=== PATIENT | male | born 1950 | race Caucasian/White ===

== ENCOUNTER → 2016-08-03 | Outpatient (CLI) | payer OTHER ==
[~2016-08-03] MED LIST: ALBU1AER9 INH; ATOR-24 PO; CIPR-255 PO; FENO48TA9 PO; FESO8TAB PO; HYDR12.55 PO; LOSA50TA54 PO; MOME100A INH; NITR100C PO; ONDA4TAB46 PO; OXYC-57 PO; PANT40TA PO; PHEN-775 PO; SIMV40TA2 PO; URC10 PO
--- NOTE | 2016-08-03 12:18 | DIAGNOSTIC IMAGING REPORT ---
LEFT UPPER EXTREMITY ULTRASOUND CLINICAL HISTORY: Left arm pain. COMPARISON STUDY: Left elbow MRI April 27, 2015. TECHNIQUE: Sonography of the left upper arm was performed as well as comparison sonography of the right upper arm. FINDINGS: There is an asymmetric appearance of the biceps. Specifically, there is a heterogeneous mass-like appearance of the left biceps tendon with suspected retraction. The findings suggest a left biceps tear with retraction. The degree of retraction is difficult to assess by sonography. IMPRESSION: Sonographic findings suggestive of a left biceps tendon tear with retraction. Electronically signed by: Christian Sparrow M.D. 08/03/2016 12:17 PM Dictated Date/Time: 08/03/2016 12:15 PM
== END | disposition home or self-care (01) ==
LOC: C.ULTR 11:44
PROVIDERS: ATTEND Nurse Practitioner Adult Health
DX: M79.602 Pain in left arm (principal)

== ENCOUNTER → 2016-08-03 | Outpatient (CLI) | payer OTHER ==
[2016-08-03 10:29] LABS: ALT/SGPT 26 U/L (12-78); AST/SGOT 19 U/L (15-37); BLOOD UREA NITROGEN 19 mg/dl (7-18); BUN/CREATININE RATIO 14.8 (10-20); CALCIUM 8.9 mg/dl (8.5-10.1); CARBON DIOXIDE 26 mmol/L (21-32); CHLORIDE 107 mmol/L (98-107); GLUCOSE 95 mg/dl (70-99); POTASSIUM 4.5 mmol/L (3.5-5.1); SODIUM 140 mmol/L (136-145)
[2016-08-03 10:34] LABS: ALB/GLOB RATIO 1.3 (0.9-2); ALKALINE PHOSPHATASE 61 U/L (45-117)
--- NOTE | 2016-08-03 13:25 | DIAGNOSTIC IMAGING REPORT ---
WHOLE BODY BONE SCAN HISTORY: Prostate carcinoma C61 RADIOTRACER: 27.1 mCi Tc-99m MDP STUDY/IMAGES: Planar anterior and posterior whole body imaging was performed 3 hours following the intravenous administration of radiotracer. COMPARISON: None. FINDINGS: Increased activity is symphysis pubis, knees bilaterally, sternoclavicular joints, as well as acromioclavicular joints. Slight increase in activity lateral margins of the T11 level of the thoracic spine as well as T2. Given the symmetry present, this is most likely consistent with that of degenerative activity of rather a metastatic process. IMPRESSION: Scattered degenerative activity throughout the axial and appendicular skeleton. No evidence for bony metastatic disease Electronically signed by: Jesus Ramirez M.D. 08/03/2016 1:24 PM Dictated Date/Time: 08/03/2016 1:22 PM
== END | disposition home or self-care (01) ==
LOC: C.NUCL 09:23
PROVIDERS: ATTEND Urology
DX: C61 Malignant neoplasm of prostate (principal); M79.602 Pain in left arm

== ENCOUNTER → 2016-08-14 | Outpatient (CLI) | payer OTHER | END | disposition home or self-care (01) | LOC: C.RDSM 13:39 | PROVIDERS: ATTEND Physical Medicine & Rehabilitation Sports Medicine | DX: M25.512 Pain in left shoulder (principal) ==

== ENCOUNTER → 2016-08-16 | Outpatient (CLI) | payer OTHER ==
[~2016-08-16] MED LIST changes: +OPTIRAY 320 IV PRN
--- NOTE | 2016-08-16 11:24 | DIAGNOSTIC IMAGING REPORT ---
ABDOMEN AND PELVIS CT EXAMINATION PRE AND POST INTRAVENOUS CONTRAST CT DOSE: 1080.34 mGy.cm HISTORY: Prostate carcinoma C61 Adenocarcinoma of [id number] Nephrolithiasisno latex shaan TECHNIQUE: Multiaxial CT images of the abdomen and pelvis were performed pre and post intravenous contrast enhancement. COMPARISON STUDY: 03/03/2014 FINDINGS: Lung bases are clear. Liver is unremarkable throughout. Gallbladder is negative for distention. Pancreas is uniform. 2 mm nonobstructing calcification upper pole left kidney. Kidneys enhance uniformly. No evidence for a space-occupying lesion. Bowel pattern is nonobstructive. Mild chronic sigmoid diverticulosis. No evidence for acute diverticulitis. No significant abdominal pelvic or inguinal adenopathy. Osseous structures show scattered degenerative change IMPRESSION: No significant abnormality identified within the abdomen or pelvis. Electronically signed by: Jesus Ramirez M.D. 08/16/2016 11:22 AM Dictated Date/Time: 08/16/2016 11:16 AM
== END | disposition home or self-care (01) ==
LOC: C.CTS 10:50
PROVIDERS: ATTEND Urology
DX: C61 Malignant neoplasm of prostate (principal); N20.0 Calculus of kidney

== ENCOUNTER 2016-09-14 09:52 | Day surgery (SDC) | payer OTHER ==
--- NOTE | 2016-08-30 13:12 | PAT Medication Instructions ---
Service Date Aug 30, 2016. Current Home Medication List Albuterol Sulfate (Proair Hfa), 2 PUFFS INH Q4H PRN Atorvastatin (Lipitor), 40 MG PO QPM Fenofibrate (Tricor), 48 MG PO QPM Fesoterodine Fumarate (Toviaz), 1 TAB PO QAM Hydrochlorothiazide (Hydrochlorothiazide), 1 TAB PO QPM Losartan Potassium (Cozaar), 50 MG PO QPM Mometasone Furoate-Formoterol (Dulera 100/5 Mcg), 1 AER INH DIRECTED PRN for PRN Ondansetron Hcl (Zofran), 4-8 MG PO PRN PRN for Nausea Oxycodone/Acetaminophen 5MG/325MG (Percocet 5MG/325MG), 1-2 TABLETS PO Q4H PRN for N Pantoprazole (Protonix), 40 MG PO QAM Potassium Citrate (Potassium Citrate), 10 MEQ PO QAM Medication Instructions For Your Scheduled Surgery - Hold the following medications the morning of surgery: Fesoterodine Fumarate (Toviaz), 1 TAB PO QAM Potassium Citrate (Potassium Citrate), 10 MEQ PO QAM - Take the following medications the morning of surgery with a sip of water OTHERWISE NOTHING TO EAT OR DRINK AFTER MIDNIGHT: Albuterol Sulfate (Proair Hfa), 2 PUFFS INH Q4H PRN (use if needed; BRING TO HOSPITAL) Oxycodone/Acetaminophen 5MG/325MG (Percocet 5MG/325MG), 1-2 TABLETS PO Q4H PRN ( use if needed up to 4 hours prior to surgery) Mometasone Furoate-Formoterol (Dulera 100/5 Mcg), 1 AER INH DIRECTED PRN for PRN Ondansetron Hcl (Zofran), 4-8 MG PO PRN Pantoprazole (Protonix), 40 MG PO QAM - Take the following medications as scheduled the night before surgery: Albuterol Sulfate (Proair Hfa), 2 PUFFS INH Q4H PRN Hydrochlorothiazide (Hydrochlorothiazide), 1 TAB PO QPM Atorvastatin (Lipitor), 40 MG PO QPM Oxycodone/Acetaminophen 5MG/325MG (Percocet 5MG/325MG), 1-2 TABLETS PO Q4H PRN Mometasone Furoate-Formoterol (Dulera 100/5 Mcg), 1 AER INH DIRECTED PRN for PRN Ondansetron Hcl (Zofran), 4-8 MG PO PRN - Do not take the following medications the night before surgery: Fenofibrate (Tricor), 48 MG PO QPM Losartan Potassium (Cozaar), 50 MG PO QPM If you have any questions please call us at [phone] or [phone] or [phone]
--- NOTE | 2016-08-30 13:52 | DIAGNOSTIC IMAGING REPORT ---
CHEST 2 VIEWS ROUTINE CLINICAL HISTORY: Preoperative chest COMPARISON STUDY: 04/24/2016 FINDINGS: The heart is enlarged. There is basilar interstitial thickening. There is no lobar consolidation. No pleural effusions are visualized. There is no failure.[ A subcentimeter opacity at left lung base is felt to represent a summation IMPRESSION: Mild cardiomegaly. No acute findings. Electronically signed by: Shankar Smith M.D. 08/30/2016 1:50 PM Dictated Date/Time: 08/30/2016 1:50 PM
[2016-08-30 14:13] LABS: BASO % 0.2 %; BASO ABS # 0.01 K/uL (0-0.2); COMPLETE YES; EOS % 2.6 %; HEMATOCRIT 45.6 % (42-52); IG% 0.2 %; LYMPH % 27.5 %; MEAN CELL VOLUME 91.9 fL (80-100); MEAN CORPUSCULAR HEMOGLOBIN 31.7 pg (25-34); MEAN CORPUSCULAR HGB CONC 34.4 g/dl (32-36); MEAN PLATELET VOLUME 10.6 fL (7.4-10.4); NEUT % 60.5 %; PLATELET COUNT 148 K/uL (130-400); RED BLOOD COUNT 4.96 M/uL (4.7-6.1); WHITE BLOOD COUNT 5.09 K/uL (4.8-10.8)
[2016-08-30 14:45] LABS: URINE APPEARANCE CLEAR (CLEAR); URINE BILIRUBIN NEG (NEG); URINE COLOR YELLOW; URINE NITRITE NEG (NEG); URINE PH 5.5 (4.5-7.5); URINE SPECIFIC GRAVITY 1.022 (1.000-1.030); UROBILINOGEN NEG (NEG)
[2016-08-30 14:46] LABS: BUN/CREATININE RATIO 15.1 (10-20); CALCIUM 9.4 mg/dl (8.5-10.1); CREATININE 1.4 mg/dl (0.60-1.40); POTASSIUM 4.8 mmol/L (3.5-5.1)
[2016-08-30 14:47] LABS: MANUAL MICROSCOPIC REQUIRED? NO; REVIEW REQ? NO
[~2016-09-14] VITALS: Ht 172.7 cm; Wt 89.1 kg
[~2016-09-14 09:52] MED LIST changes: -CIPR-255 PO; +CIPROFLOXACIN / D5W 400 MG IV SCH; +LACTATED RINGER'S 1000ML 1,000 ML IV SCH; +LACTATED RINGER'S 1000ML IV SCH; -NITR100C PO; -OPTIRAY 320 IV PRN; -PHEN-775 PO; -SIMV40TA2 PO
[2016-09-14 10:11] VITALS: BP 159/87; PULSE 89; TEMP 36.6; O2SAT 96; Ht 172.7 cm; Wt 89.1 kg
--- NOTE | 2016-09-14 10:46 | History & Physical Bridge Note ---
H&P Re-Evaluation Bridge Note: I have examined the patient, reviewed the History & Physical and in the interval since the performance of the History & Physical I have noted the following changes of clinical significance: No changes noted
[2016-09-14] MEDS ORDERED: ONDANSETRON INJ 2 MG/ML 2 ML VIAL ONE (13:14)
[2016-09-14] MEDS ORDERED: FENTANYL CITRATE INJ 50 MCG/1 ML 2 ML VIAL ONE (13:14)
[2016-09-14] MEDS ORDERED: LIDOCAINE HCL 2% 2 ML VIAL (20MG/ML) ONE (13:14)
[2016-09-14] MEDS ORDERED: MIDAZOLAM HCL 1 MG/ML 2ML VIAL ONE (13:14)
[2016-09-14] MEDS ORDERED: DEXAMETHASONE SOD INJ 4 MG/ML VIAL ONE (13:14)
[2016-09-14] MEDS ORDERED: PROPOFOL IV EMULSION 10 MG/ML 20 ML VIAL IV ONE (13:14)
[2016-09-14] MEDS ORDERED: BELLADONNA/OPIUM SUPP 60 MG SUPP PR ONE ×2 (13:43→14:01)
[2016-09-14] MEDS ORDERED: PHEN-775 PO (13:43)
[2016-09-14] MEDS ORDERED: CIPR-255 PO (13:43)
--- NOTE | 2016-09-14 13:50 | Discharge Instructions ---
Discharge Instructions Date of Service Sep 14, 2016. Admission Reason for Admission: Bladder Neck Contracture Discharge Discharge Diagnosis / Problem: Bladder neck contracture s/p transurethral incision Discharge Goals Goal(s): Improve function, Therapeutic intervention Activity Recommendations Activity Limitations: per Instructions/Follow-up section Lifting Limitations: no more than 25 pounds, gradually increase as tolerated Exercise/Sports Limitations: rest today, gradually increase as tolerated May Resume Sexual Activity: when tolerated Shower/Bathe: tomorrow Driving or Machine Use: resume 1 day after discharge . Instructions / Follow-Up Instructions / Follow-Up In office as scheduled for milian removal and postoperative visit Discharge Diet Recommended Diet: Regular Diet (good fluid intake) Procedures Procedures Performed: Transurethral Incision Bladder Neck Contracture Pending Studies Studies pending at discharge: no Medical Emergencies . Who to Call and When: Medical Emergencies: If at any time you feel your situation is an emergency, please call 911 immediately. . Non-Emergent Contact Non-Emergency issues call your: Urologist Call Non-Emergent contact if: you have a fever, temperature is above 101, your pain is not controlled, your pain is worsening, your pain is unusual for you, your pain is concerning you . . "Provider Documentation" section prepared by Jasen Fuller. VTE Core Measure Inpt VTE Proph given/why not?: SCD's
--- NOTE | 2016-09-14 13:51 | [facility] Post Operative Brief Note ---
Immediate Operative Summary Operative Date Sep 14, 2016. Pre-Operative Diagnosis Bladder neck contracture. Post-Operative Diagnosis Same as preop. Procedure(s) Performed Transurethral Incision Bladder Neck Contracture Surgeon Dr. Jasen Fuller [employer] [facility] Specialist Surgeon(s) None Estimated Blood Loss 0 ml Findings Open BNC after completion of case Specimens None. Drains 20 fr silicone milian 10 cc HG2O Anesthesia GALMA Complication(s) None Disposition Recovery Room / PACU
[2016-09-14] MEDS ORDERED: OXYCODONE/ACETAMINOPHEN 5-325 TAB PO PRN (14:00)
[2016-09-14] MEDS ORDERED: PHENAZOPYRIDINE HCL 100 MG TAB PO PRN (14:00)
--- NOTE | 2016-09-14 14:18 | OPERATIVE REPORT ---
DATE OF OPERATION: 09/14/2016 PREOPERATIVE DIAGNOSIS: History of prostate cancer status post radical prostatectomy and salvage XRT with bladder neck contracture. POSTOPERATIVE DIAGNOSIS: Same. PROCEDURE: Transurethral incision of bladder neck contracture. SURGEON: Dr. Jasen Fuller. ROLL FORMING MACHINE OPERATOR: None. ANESTHESIA: General anesthesia with laryngeal mask. COMPLICATIONS: None. ESTIMATED BLOOD LOSS: Minimal. DRAINS LEFT IN PLACE: Include a 20-Albanian silicone Ramachandran catheter to gravity drainage with 10 mL of sterile water in the balloon. SPECIMENS SENT TO PATHOLOGY: None. FINDINGS: Open bladder neck contracture after completion of case. BRIEF HISTORY: Mr. Powell is a pleasant 66-year-old male with a history of prostate cancer status post robotic prostatectomy and salvage XRT for persistent PSA with good PSA response at this time. His voiding continues to remain an issue however with a dribbling stream, dripping and some incontinence. Office cystoscopy has demonstrated an impassable bladder neck contracture. After discussion of risks and benefits of various forms of intervention, the patient decided upon a transurethral incision of his bladder neck contracture to attempt to assist with his voiding. Risks and benefits of intervention including worsening of his incontinence have been discussed. Please see H\T\P for further details. Intravenous ciprofloxacin provided for antibiotic coverage and SCDs used for DVT prophylaxis. PROCEDURE: The patient was properly identified and brought to the operative suite. After identification and appropriate consent on the chart, general anesthesia with laryngeal mask was initiated and the patient was prepped and draped in standard fashion for this procedure. traffic sign supervisor-out procedure was followed. 24 Albanian resectoscope was passed into the proximal urethra under direct visualization with a visual obturator in place. At the bladder neck an impassable bladder neck contracture consistent with the patient's office cystoscopy findings were appreciated. Using a Gee knife relaxing incisions were made at the 5 and 7 o'clock position. Seeing the patient's history of prostatectomy and radiation a wide incision and resection was not made. It was opened sufficiently to allow for passage of the resectoscope. Bladder was surveyed in its entirety demonstrating no intravesical lesions, papillary masses, or calculi. Ureteral orifices were noted to be in their normal anatomic location and effluxing clear, yellow urine. The prostate was surgically absent as expected. The bladder was partially distended and resectoscope was removed. A 20-Albanian silicone catheter was placed with no resistance into the bladder and 10 mL of sterile water were placed with drainage of clear irrigant. The catheter was placed to gravity drainage and belladonna and opium suppository was provided for additional postoperative analgesia. Anesthesia was reversed. The patient was transferred to recovery room in stable condition. FOLLOW-UP CARE: The patient will be discharged home with Ramachandran catheter in place. Outpatient trial of void tomorrow, prescription for ciprofloxacin and Pyridium were provided. The patient reports he has sufficient pain medication at home should he require it. The patient is instructed to contact our service should he note any fevers, chills, nausea, vomiting or other significant difficulties in the postoperative period. I attest to the content of the Intraoperative Record and any orders documented therein. Any exceptio ns are noted below.
[2016-09-14] MEDS ORDERED: FENTANYL CITRATE INJ 50 MCG/1 ML 2 ML VIAL IV PRN (14:45)
[2016-09-14] MEDS ORDERED: EpHEDrine SULFATE INJ 50 MG/ML AMP IV PRN (14:45)
[2016-09-14] MEDS ORDERED: ATROPINE SULFATE 0.1 MG/ML 5ML SYR IV PRN (14:45)
[2016-09-14] MEDS ORDERED: ONDANSETRON INJ 2 MG/ML 2 ML VIAL IV PRN (14:45)
[2016-09-14 14:55] VITALS: BP 135/77; PULSE 64; TEMP 36.7; O2SAT 95
[2016-09-14 15:25] VITALS: BP 140/79; PULSE 61; O2SAT 96
--- NOTE | 2016-09-14 15:36 | Anesthesiology Progress Note ---
Anesthesia Post Op Note Date & Time Sep 14, 2016 at 15:35 Vital Signs Pain Intensity: 0 Vital Signs Past 12 Hours Date Time Temp Pulse Resp B/P Pulse Ox O2 Delivery O2 Flow Rate FiO2 09/14/16 14:39 36.6 54 19 144/78 94 Room Air 09/14/16 14:34 56 16 09/14/16 14:34 56 16 92 09/14/16 14:30 143/77 09/14/16 14:29 53 16 09/14/16 14:29 58 16 92 09/14/16 14:25 133/87 09/14/16 14:24 55 16 09/14/16 14:24 54 16 95 09/14/16 14:20 136/84 09/14/16 14:19 53 16 99 09/14/16 14:19 54 16 09/14/16 14:15 136/80 09/14/16 14:14 60 26 98 09/14/16 14:14 61 26 09/14/16 14:10 125/76 09/14/16 14:09 65 14 100 09/14/16 14:09 64 14 09/14/16 14:05 108/67 09/14/16 14:04 57 19 09/14/16 14:04 58 19 99 09/14/16 14:00 104/70 09/14/16 13:59 63 18 09/14/16 13:59 66 18 98 09/14/16 13:55 110/69 09/14/16 13:54 68 21 113/73 98 09/14/16 13:54 36.1 65 16 113/73 98 Mask 10 09/14/16 13:54 66 21 09/14/16 10:11 36.6 89 18 159/87 96 Room Air Notes Mental Status: alert / awake / arousable, participated in evaluation Pt Amnestic to Procedure: Yes Nausea / Vomiting: adequately controlled Pain: adequately controlled Airway Patency, RR, SpO2: stable & adequate BP & HR: stable & adequate Hydration State: stable & adequate Anesthetic Complications: no major complications apparent
[2016-09-14 15:55] VITALS: BP 140/79; PULSE 56; TEMP 36.7; O2SAT 96
== END 2016-09-14 16:15 | disposition home or self-care (01) ==
LOC: C.ACU 09:52
PROVIDERS: ATTEND Urology
DX: N32.0 Bladder-neck obstruction (principal); Z85.46 Personal history of malignant neoplasm of prostate; Z90.79 Acquired absence of other genital organ(s); Z79.899 Other long term (current) drug therapy

== ENCOUNTER → 2016-10-04 | Outpatient (CLI) | payer OTHER ==
[~2016-10-04] MED LIST changes: +CIPR-255 PO; -CIPROFLOXACIN / D5W 400 MG IV SCH; -LACTATED RINGER'S 1000ML 1,000 ML IV SCH; -LACTATED RINGER'S 1000ML IV SCH; +NITR100C2 PO
[2016-10-04 16:43] LABS: BASO % 0.4 %; BASO ABS # 0.02 K/uL (0-0.2); COMPLETE YES; EOS % 3.1 %; HEMATOCRIT 44.7 % (42-52); IG% 0.2 %; LYMPH % 27.9 %; LYMPH ABS # 1.55 K/uL (1.2-3.4); MEAN CELL VOLUME 93.1 fL (80-100); MEAN CORPUSCULAR HEMOGLOBIN 32.3 pg (25-34); MEAN CORPUSCULAR HGB CONC 34.7 g/dl (32-36); MEAN PLATELET VOLUME 10.2 fL (7.4-10.4); MONO % 10.5 %; NEUT % 57.9 %; PLATELET COUNT 160 K/uL (130-400); WHITE BLOOD COUNT 5.55 K/uL (4.8-10.8)
[2016-10-04 17:03] LABS: ALT/SGPT 34 U/L (12-78); AST/SGOT 20 U/L (15-37); BLOOD UREA NITROGEN 19 mg/dl (7-18); BUN/CREATININE RATIO 13.8 (10-20); CALCIUM 8.8 mg/dl (8.5-10.1); CARBON DIOXIDE 30 mmol/L (21-32); CHLORIDE 108 mmol/L (98-107); GLUCOSE 72 mg/dl (70-99); POTASSIUM 4.1 mmol/L (3.5-5.1); SODIUM 142 mmol/L (136-145)
[2016-10-04 17:14] LABS: ALB/GLOB RATIO 1.2 (0.9-2); ALKALINE PHOSPHATASE 64 U/L (45-117); CHOLESTEROL 155 mg/dl (0-200); CHOLESTEROL/HDL RATIO 3.2; HDL CHOLESTEROL 49 mg/dl; LDL CHOLESTEROL CALCULATED 86 mg/dl; TRIGLYCERIDES 101 mg/dl (0-150); VERY LOW DENSITY LIPOPROT CALC 20 mg/dl
== END | disposition home or self-care (01) ==
LOC: C.LAB 15:11
PROVIDERS: ATTEND Urology
DX: K30 Functional dyspepsia (principal); N39.3 Stress incontinence (female) (male); I10 Essential (primary) hypertension; E78.5 Hyperlipidemia, unspecified

== ENCOUNTER 2016-10-12 06:47 | Day surgery (SDC) | payer OTHER ==
[2016-10-09 16:02] VITALS: BMI 29.0
[~2016-10-12] VITALS: Ht 172.7 cm; Wt 87.3 kg
[~2016-10-12 06:47] MED LIST changes: -CIPR-255 PO; +CIPROFLOXACIN / D5W 400 MG IV SCH; +LACTATED RINGER'S 1000ML 1,000 ML IV SCH; -NITR100C2 PO
[2016-10-12 07:00] VITALS: PULSE 60; TEMP 36.5; O2SAT 95; Ht 172.7 cm; Wt 87.3 kg
[2016-10-12] MEDS ORDERED: FENTANYL CITRATE INJ 50 MCG/1 ML 2 ML VIAL ONE (08:19)
[2016-10-12] MEDS ORDERED: PROPOFOL IV EMULSION 10 MG/ML 20 ML VIAL IV ONE (08:19)
[2016-10-12] MEDS ORDERED: LIDOCAINE HCL 2% 2 ML VIAL (20MG/ML) ONE (08:19)
[2016-10-12] MEDS ORDERED: PHENYLEPHRINE 100MCG/ML 5ML SYR ONE (08:41)
[2016-10-12] MEDS ORDERED: ONDANSETRON INJ 2 MG/ML 2 ML VIAL ONE (08:41)
[2016-10-12] MEDS ORDERED: LABETALOL HCL IV 5 MG/ML 20ML IV PRN (09:00)
[2016-10-12] MEDS ORDERED: MEPERIDINE HCL 25 MG/ML CARP IV PRN (09:00)
[2016-10-12] MEDS ORDERED: FENTANYL CITRATE INJ 50 MCG/1 ML 2 ML VIAL IV PRN (09:00)
[2016-10-12] MEDS ORDERED: ONDANSETRON INJ 2 MG/ML 2 ML VIAL IV PRN (09:00)
[2016-10-12] MEDS ORDERED: EpHEDrine SULFATE INJ 50 MG/ML AMP IV PRN (09:00)
[2016-10-12] MEDS ORDERED: ATROPINE SULFATE 0.1 MG/ML 5ML SYR IV PRN (09:00)
[2016-10-12] MEDS ORDERED: HYDROmorphone INJ 1 MG/ML SYR IV PRN (09:00)
[2016-10-12] MEDS ORDERED: NITR100C2 PO (09:11)
--- NOTE | 2016-10-12 09:13 | Discharge Instructions ---
Discharge Instructions Date of Service October 12, 2016. Admission Reason for Admission: Stress Urinary Incontinence Discharge Discharge Diagnosis / Problem: AMY s/p Coaptite injection Discharge Goals Goal(s): Improve function, Improve disease control, Therapeutic intervention Activity Recommendations Activity Limitations: as noted below Lifting Limitations: no more than 25 pounds, gradually increase as tolerated Exercise/Sports Limitations: rest today, gradually increase as tolerated May Resume Sexual Activity: when tolerated Shower/Bathe: no limitations Driving or Machine Use: resume 1 day after discharge . Instructions / Follow-Up Instructions / Follow-Up As scheduled in office Discharge Diet Recommended Diet: Regular Diet (good fluid intake) Procedures Procedures Performed: Cystoscopy, Injection of Uretheral Bulking Agent - Coaptite Pending Studies Studies pending at discharge: no Laboratory Results Lipid Panel Test 10/04/16 15:19 Range/Units Triglycerides Level 101 0-150 mg/dl Cholesterol Level 155 0-200 mg/dl HDL Cholesterol 49 mg/dl Cholesterol/HDL Ratio 3.2 LDL Cholesterol, Calculated 86 mg/dl Medical Emergencies . Who to Call and When: Medical Emergencies: If at any time you feel your situation is an emergency, please call 911 immediately. . Non-Emergent Contact Non-Emergency issues call your: Urologist Call Non-Emergent contact if: you have a fever, temperature is above 101, your pain is not controlled, your pain is worsening, your pain is unusual for you, your pain is concerning you, you have any medication questions . . "Provider Documentation" section prepared by Jasen Fuller. . VTE Core Measure Inpt VTE Proph given/why not?: SCD's
--- NOTE | 2016-10-12 09:14 | [facility] Post Operative Brief Note ---
Immediate Operative Summary Operative Date October 12, 2016. Pre-Operative Diagnosis Urinary Stress Incontinence Post-Operative Diagnosis Urinary Stress Incontinence Procedure(s) Performed Cystoscopy, Injection of Uretheral Bulking Agent - Coaptite Surgeon Dr. Jasen Fuller Associate Web Developer Surgeon(s) none Estimated Blood Loss 0 cc Findings 3 cc of Coaptite used at 4, 8 and 12 oclock positions Specimens none per surgeon Drains NA Anesthesia GALMA Complication(s) None Disposition Recovery Room / PACU
[2016-10-12] MEDS ORDERED: OXYCODONE/ACETAMINOPHEN 5-325 TAB PO PRN (09:15)
--- NOTE | 2016-10-12 09:40 | OPERATIVE REPORT ---
DATE OF OPERATION: 10/12/2016 PREOPERATIVE DIAGNOSIS: Urinary incontinence. POSTOPERATIVE DIAGNOSIS: Same. PROCEDURE: Cystoscopy and injection with urethral bulking agent. SURGEON: Dr. Jasen Fuller. CRUSHER DRY GROUND MICA: None. ANESTHESIA: General anesthesia with laryngeal mask. COMPLICATIONS: None. ESTIMATED BLOOD LOSS: Minimal. DRAINS LEFT IN PLACE: None. SPECIMENS SENT TO PATHOLOGY: None. FINDINGS: 3 mL of Coaptite injected at the level of the sphincter with good coaptation at the 12, 4, and 8 o'clock positions, 1 mL for each bleb. BRIEF HISTORY: Mr. Powell is a 66-year-old male well known to myself with a history of prostate cancer, status post prostatectomy and disease recurrence, for which he has undergone salvage external beam radiation therapy and received a year of androgen deprivation. He complained of persistent voiding issues postoperatively and a cystoscopy demonstrated bladder neck contracture. The patient was brought in for an incision of his bladder neck contracture which unfortunately resulted in worsening of his urinary incontinence. The patient complains of a persistent drip with activity despite the fact that the urethra is open, suggesting some element of sphincteric incompetence. He is here today for Coaptite injection to improve his symptoms. Please see H\T\P for further details. Intravenous ciprofloxacin provided for antibiotic coverage and SCDs used for DVT prophylaxis. PROCEDURE IN DETAIL: The patient was properly identified and brought to the operative suite after identification of appropriate consent on the chart, general anesthesia with laryngeal mask was initiated and the patient was prepped and draped in standard fashion for this procedure. Full timeout procedure was followed. Using a visual obturator, the injection scope was advanced into the bladder under direct visualization and bladder was noted to be free of intravesical lesions, papillary mass or calculi. Ureteral orifices were appreciated and noted to be effluxing clear yellow urine. Bladder neck contracture was open, although it has not been opened excessively wide. At the level of the sphincter where good coaptation was seen at the level in the office, injection of Coaptite at 3 different locations was performed at the 4, 8, and 12 o'clock positions. One full mL was inserted per bleb at the posterior locations. At the 12 o'clock position, a bleb was begun and had a small tear. The latter half of the Coaptite was able to be salvaged with a second injection point, however. After this was complete, the injection scope was removed. A 12-Rwandan catheter was used to drain the bladder delicately after allowing time for the Coaptite to set. Anesthesia was then reversed and the patient was transferred to recovery room in stable condition. FOLLOWUP CARE: The patient will be discharged home with a short course of nitrofurantoin. Outpatient appointment is confirmed. The patient is instructed to contact us should he note any fevers, chills, nausea, vomiting or any other significant difficulties in the postoperative period. I attest to the content of the Intraoperative Record and any orders documented therein. Any exceptions are noted below. FRANKLIND
--- NOTE | 2016-10-12 09:53 | Anesthesiology Progress Note ---
Anesthesia Post Op Note Date & Time October 12, 2016 at 09:53 Vital Signs Pain Intensity: 3 Vital Signs Past 12 Hours Date Time Temp Pulse Resp B/P Pulse Ox O2 Delivery O2 Flow Rate FiO2 10/12/16 09:50 36.1 56 12 132/79 95 Room Air 10/12/16 09:40 56 12 120/84 95 Room Air 10/12/16 09:30 56 12 145/79 98 Diffusion Mask 8 10/12/16 09:20 56 12 137/82 98 Diffusion Mask 8 10/12/16 09:11 36 69 12 144/80 96 Diffusion Mask 8 10/12/16 07:00 36.5 60 16 95 Room Air Notes Mental Status: alert / awake / arousable, participated in evaluation Pt Amnestic to Procedure: Yes Nausea / Vomiting: adequately controlled Pain: adequately controlled Airway Patency, RR, SpO2: stable & adequate BP & HR: stable & adequate Hydration State: stable & adequate Anesthetic Complications: no major complications apparent
[2016-10-12 09:55] VITALS: BP 136/76; PULSE 58; TEMP 36.4; O2SAT 95
[2016-10-12 10:25] VITALS: BP 131/78; PULSE 67; TEMP 36.5; O2SAT 97
[2016-10-12 10:50] VITALS: BP 135/76; PULSE 60; TEMP 36.4; O2SAT 97
== END 2016-10-12 11:00 | disposition home or self-care (01) ==
LOC: C.ACU 06:47
PROVIDERS: ATTEND Urology
DX: R32 Unspecified urinary incontinence (principal); N52.9 Male erectile dysfunction, unspecified; N32.0 Bladder-neck obstruction; E78.5 Hyperlipidemia, unspecified; Z85.46 Personal history of malignant neoplasm of prostate; Z87.891 Personal history of nicotine dependence; Z90.79 Acquired absence of other genital organ(s); Z82.49 Family history of ischemic heart disease and other diseases of the circulatory system

== ENCOUNTER → 2017-04-11 | Outpatient (CLI) | payer OTHER ==
[~2017-04-11] MED LIST changes: -CIPROFLOXACIN / D5W 400 MG IV SCH; -LACTATED RINGER'S 1000ML 1,000 ML IV SCH
[2017-04-11 13:20] VITALS: BP 118/71; PULSE 86; TEMP 36.5; O2SAT 95
--- NOTE | 2017-04-11 16:08 | Radiation Oncology Follow-Up ---
Radiation Oncology Follow-Up Date of Visit Apr 11, 2017. Reason For Visit Annual follow-up Radiation Completion Date FINISHED 08-19-2013 Diagnosis (1) Carcinoma of prostate Status: Acute Onset Date: 09/15/2012 Histology Subtype: adenocarcinoma Stage: lll Permanent Comment: A rising PSA, pretreatment PSA 7.2 status post biopsies. Biopsy revealing adenocarcinoma Sal grade 3+3 and 3+4 Status post robotic-assisted radical prostatectomy 11/23/2011 pathologic stage [id number] stage III Sal grade 3+3 status post completion of radiation therapy salvage treatment 08/19/2013 received 7000 cGy Last Edited By: Elly Smith on Apr 06, 2015 15:49 Interim History He has had continued problems with incontinence. He was referred by Dr. Fuller to [facility] and underwent surgery. An artificial urinary sphincter device was implanted on 03/16/2017. He has steadily recuperated from the surgery. He denies any discomfort. The device has not yet been activated. This will be happening in the near future. Prior to the implanted device he was tried on Botox injections. He unfortunately has had a rise in his PSA. Last PSA was obtained on 04/05/2017. In that was 13.7. He did see Dr. Fuller today. He is going to schedule him for staging studies. He is going to have a CAT scan of the abdomen and pelvis as well as a bone scan. He has discussed with him starting hormone suppression. He had previously received hormone suppression while undergoing the radiation therapy. Today he gave an AUA score of 26. Completed and expanded prostate cancer index composite for clinical practice and gave a score of 12 of 12 and urinary incontinence symptoms. He gave a score of 6 of 12 and urinary irritation symptoms. He gave a score of 0 of 12 bowel symptoms. He gave a score of 6 of 12 in sexual symptoms. He gave a score of 0 of 12 and hormonal vitality symptoms. His total was 24 of 60. Allergies Coded Allergies: No Known Allergies (Unverified , 10/12/16) Home Medications Scheduled Atorvastatin (Lipitor), 40 MG PO QPM Fenofibrate (Tricor), 48 MG PO QPM Hydrochlorothiazide (Hydrochlorothiazide), 1 TAB PO QPM Losartan Potassium (Cozaar), 50 MG PO QPM Pantoprazole (Protonix), 40 MG PO QAM Potassium Citrate (Potassium Citrate), 10 MEQ PO QAM Scheduled PRN Albuterol Sulfate (Proair Hfa), 2 PUFFS INH Q4H PRN Mometasone Furoate-Formoterol (Dulera 100/5 Mcg), 1 AER INH DIRECTED PRN for PRN Review of Systems Gastrointestinal: Symptoms: WNL GI Comments: occ bleeding from Hemorrhoids Oral: Symptoms: No Problems Respiratory: Symptoms: WNL Other Respiratory: " is working in dust , remodeling a bedroom " Urinary: Symptoms: Incontinence Comments: leakage , wears a pad, changes 7-8 times Skin: Symptoms: No Problems Physical Exam Vital Signs Date Time Temp Pulse Resp B/P (MAP) Pulse Ox O2 Delivery O2 Flow Rate FiO2 04/11/17 13:20 36.5 86 20 118/71 95 Fatigue: None General Appearance: no apparent distress Eyes: normal inspection, EOMI ENT: normal ENT inspection, hearing grossly normal Respiratory/Chest: lungs clear, no respiratory distress, no accessory muscle use Cardiovascular: regular rate, rhythm, no gallop, no murmur Abdomen: non tender, soft Anal / Rectum: Normal sphincter tone. Prostate is flat. No rectal masses and no rectal bleeding. Extremities: no pedal edema Neurologic/Psychiatric: no motor/sensory deficits, alert, normal mood/affect Skin: warm/dry Pain Management Side: Bilateral Patient Preferred Pain Scale: 0 - 10 Laboratory Studies Test 04/05/17 11:51 Blood Urea Nitrogen 20 mg/dl (7-18) Creatinine 1.19 mg/dl (0.60-1.40) Estimated GFR () 73.9 Estimated GFR (Non- 63.7 BUN/Creatinine Ratio 16.5 (10-20) Triglycerides Level 124 mg/dl (0-150) Cholesterol Level 185 mg/dl (0-200) HDL Cholesterol 54 mg/dl LDL Cholesterol, Calculated 106 mg/dl VLDL Cholesterol, Calculated 25 mg/dl Cholesterol/HDL Ratio 3.4 Prostate Specific Antigen 13.700 ng/ml (0.000-4.000) Assessment & Plan Plan: We'll await the studies ordered by Dr. Fuller. He has a follow-up visit with him on 05/23/2017. We discussed the hormone suppression. We reviewed that this is the first step in failure after radiation therapy. He understands that there will be options of treatments should he fail hormone suppression. The implanted device will be activated and he is hopeful that this will improve his urinary incontinence. We asked him to return to our office in 1 year. He may call if he has any questions or concerns in the interim. Total Time In Follow-Up I spent 20 minutes speaking to the patient and performing examination. I spent 15 minutes reviewing information and completing this note. Copy To Jasen Fuller MD, Urology; [place],
== END | disposition home or self-care (01) ==
LOC: C.ONC 13:04
PROVIDERS: ATTEND Physician Assistant Medical
DX: Z08 Encounter for follow-up examination after completed treatment for malignant neoplasm (principal); Z92.3 Personal history of irradiation; Z85.46 Personal history of malignant neoplasm of prostate

== ENCOUNTER → 2017-04-16 | Outpatient (CLI) | payer OTHER ==
[~2017-04-16] MED LIST changes: -FESO8TAB PO; -ONDA4TAB46 PO; +OPTIRAY 320 IV PRN; -OXYC-57 PO
[2017-04-16 13:27] LABS: BLOOD UREA NITROGEN 20 mg/dl (7-18); BUN/CREATININE RATIO 16.8 (10-20); CALCIUM 9.5 mg/dl (8.5-10.1); CARBON DIOXIDE 27 mmol/L (21-32); CHLORIDE 105 mmol/L (98-107); CREATININE 1.17 mg/dl (0.60-1.40); GLUCOSE 88 mg/dl (70-99); POTASSIUM 4.3 mmol/L (3.5-5.1); SODIUM 141 mmol/L (136-145)
--- NOTE | 2017-04-16 14:26 | DIAGNOSTIC IMAGING REPORT ---
ABDOMEN AND PELVIS CT WITH IV CONTRAST CT DOSE: 538.40 mGy.cm HISTORY: Follow-up study. 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 A dose lowering technique was utilized adhering to the principles of ALARA. COMPARISON STUDY: CT abdomen and pelvis 08/16/2016. FINDINGS: Mild dependent bibasilar atelectasis. 4 mm noncalcified pulmonary nodule of the left lower lobe as seen on image 14 of series 3. 5 mm nodule of the right lower lobe seen on image 23 of series 3. No pneumoperitoneum. Imaged inferior cardiac chambers are unremarkable. The liver, spleen, pancreas, gallbladder and adrenal glands are unremarkable. Areas of probable thinning and scarring are noted within the inferior pole left kidney. 2 nonobstructing calculi are seen on the left, largest of which measures up to 3 mm. 3 mm nonobstructing calculus involves interpolar right kidney. No ureteral calculi or hydronephrosis. Urinary bladder is collapsed. Penile prosthetic device is present with reservoir within the right lower anterior abdomen abutting the rectus musculature. Prostate appears to be surgically absent. Small fat filled left inguinal hernia. Moderate atherosclerotic plaquing of the abdominal aorta. No bulky retroperitoneal adenopathy. There is no bowel obstruction or focal bowel wall thickening. No evidence of acute appendicitis. Soft tissues are unremarkable. The bones appear mildly demineralized. No suspicious lytic or blastic lesion. Degenerative changes are seen in the spine. IMPRESSION: 1. No acute intra-abdominal or intrapelvic abnormality identified. 2. Noncalcified pulmonary nodules of the lower lobes as above measuring up to 5 mm. Follow-up guidelines provided below. 3. No adenopathy or evidence of metastatic disease. 4. Scarring of the inferior pole left kidney. Bilateral nonobstructing nephrolithiasis. Please refer to below summary of Fleischner criteria recommendations for follow-up of incidental CT nodules (Wu Solomon, Guidelines for management of small pulmonary nodules detected on CT scans: A statement from the Fleischner Society, Radiology 237: [id number].) SOLID NODULES Solitary nodule size: <6 mm * Low risk patients: no follow-up needed * high risk patients: optional CT at 12 months Solitary nodule size: 6-8 mm * Low risk patients: follow-up at 6-12 months, then consider further follow-up at 18-24 months * high risk patients: initial follow-up CT at 6-12 months and then at 18-24 months if no change Solitary nodule size: >8 mm * either low or high risk patients - consider follow-up CT at 3 months, and/or CT-PET, and/or biopsy Multiple nodules size: <6 mm * Low risk patients: no routine follow-up * high risk patients: optional CT at 12 months Multiple nodules size: 6-8 mm * Low risk patients: follow-up at 3-6 months, then consider further follow-up at 18-24 months * high risk patients: follow-up at 3-6 months, then at 18-24 months if no change Multiple nodules size: >8 mm * Low risk patients: follow-up at 3-6 months, then consider further follow-up at 18-24 months * high risk patients: follow-up at 3-6 months, then at 18-24 months if no change Note: newly detected indeterminate nodule in persons 35 years of age or older. * Low risk patients: minimal or absent history of smoking and/or other known risk factors * high risk patients: history of smoking or of other known risk factors (e.g. first degree relative with lung cancer, or exposure to asbestos, radon, uranium) * if a nodule up to 8 mm is partly solid or is ground glass further follow-up is required after 24 months to exclude possible slow growing adenocarcinoma (MIKE) SUBSOLID NODULES Solitary pure ground-glass nodule * nodule size <6 mm - no CT follow-up required * nodule size >=6 mm - follow-up CT at 6-12 months, then every 2 years until 5 years Solitary part-solid nodule * nodule size <6 mm - no CT follow-up required * nodule size >=6 mm - follow-up CT at 3-6 months. If unchanged, and solid component remains <6 mm, then annual follow-up for 5 years Multiple subsolid nodules * nodule size <6 mm - follow-up CT at 3-6 months, consider further follow-up at 2 and 4 years if stable * nodule size >=6 mm - follow-up CT at 3-6 months, subsequent management based on the most suspicious nodule(s) The above report was generated using voice recognition software. It may contain grammatical, syntax or spelling errors. Electronically signed by: Rome Hammer M.D. 04/16/2017 2:25 PM Dictated Date/Time: 04/16/2017 1:47 PM
--- NOTE | 2017-04-16 18:42 | DIAGNOSTIC IMAGING REPORT ---
BONE SCAN WHOLE BODY CLINICAL HISTORY: Adenocarcinoma of prostate. COMPARISON STUDY: Whole body bone scan August 03, [address] of the abdomen and pelvis April 16, 2017. TECHNIQUE: 26.487 mCi of technetium 99m MDP was injected IV at 1:25 PM on April 16, 2017. 3 hours following injection, whole body imaging was performed in the anterior and posterior projections. FINDINGS: Expected renal and soft tissue uptake is identified. No suspicious skeletal radiotracer uptake is identified to suggest skeletal metastatic disease. A photopenic defect from right knee arthroplasty is noted. Uptake within the shoulders, sternoclavicular joints, ankles and feet is degenerative. Uptake projecting over the scrotum represents urine leakage. IMPRESSION: No evidence of skeletal metastatic disease. Electronically signed by: Christian Sparrow M.D. 04/16/2017 6:41 PM Dictated Date/Time: 04/16/2017 6:39 PM
== END | disposition home or self-care (01) ==
LOC: C.NUCL 12:40
PROVIDERS: ATTEND Urology
DX: R10.13 Epigastric pain (principal); C61 Malignant neoplasm of prostate; N20.0 Calculus of kidney; R91.8 Other nonspecific abnormal finding of lung field

== ENCOUNTER → 2017-05-14 | Outpatient (CLI) | payer OTHER ==
[~2017-05-14] MED LIST changes: -OPTIRAY 320 IV PRN
[2017-05-14 18:21] LABS: ALT/SGPT 22 U/L (12-78); AST/SGOT 17 U/L (15-37); BLOOD UREA NITROGEN 21 mg/dl (7-18); BUN/CREATININE RATIO 15.9 (10-20); CALCIUM 8.9 mg/dl (8.5-10.1); CARBON DIOXIDE 27 mmol/L (21-32); CHLORIDE 107 mmol/L (98-107); CREATININE 1.34 mg/dl (0.60-1.40); GLUCOSE 75 mg/dl (70-99); POTASSIUM 4.2 mmol/L (3.5-5.1); SODIUM 137 mmol/L (136-145)
[2017-05-14 18:26] LABS: ALB/GLOB RATIO 0.9 (0.9-2); ALKALINE PHOSPHATASE 88 U/L (45-117)
== END | disposition home or self-care (01) ==
LOC: C.LABPBG 10:41
PROVIDERS: ATTEND Urology
DX: N20.0 Calculus of kidney (principal)

== ENCOUNTER → 2017-08-06 | Outpatient (CLI) | payer OTHER ==
[2017-08-06 18:10] LABS: BLOOD UREA NITROGEN 22 mg/dl (7-18); CREATININE 1.25 mg/dl (0.60-1.40)
== END | disposition home or self-care (01) ==
LOC: C.LABPBG 11:49
PROVIDERS: ATTEND Urology
DX: N39.41 Urge incontinence (principal)

== ENCOUNTER → 2017-08-28 | Outpatient (CLI) | payer OTHER ==
--- NOTE | 2017-08-28 12:32 | DIAGNOSTIC IMAGING REPORT ---
KUB CLINICAL HISTORY: Nephrolithiasis. FINDINGS:2 AP supine abdominal radiographs are correlated with abdominal CT dated 04/16/2017. There is a nonobstructed abdominal bowel gas pattern noting moderate colonic fecal retention. A punctate calcification projects over the left kidney. No calcifications are seen projecting over the right kidney. No calcification is seen projecting along the course of the ureters. A vascular calcification is seen in the left hemipelvis. The skeletal structures are osteopenic. Moderate lumbosacral spondylosis is identified. IMPRESSION: 1. A punctate nonobstructing calculus projects over the left kidney. 2. No right renal calculi are identified on today's examination. The renal shadows are largely obscured by overlying bowel contents. 2. No ureteral stone is seen. Electronically signed by: Kushal Donis M.D. 08/28/2017 12:30 PM Dictated Date/Time: 08/28/2017 12:28 PM
== END | disposition home or self-care (01) ==
LOC: C.RAD 11:25
PROVIDERS: ATTEND Urology
DX: N20.0 Calculus of kidney (principal); N20.1 Calculus of ureter; N32.0 Bladder-neck obstruction

== ENCOUNTER → 2017-10-23 | Outpatient (CLI) | payer OTHER ==
[2017-10-23 13:09] LABS: HEMATOCRIT 41.5 % (42-52); HEMOGLOBIN 14.1 g/dL (14.0-18.0); MEAN CORPUSCULAR HEMOGLOBIN 31.3 pg (25-34); MEAN PLATELET VOLUME 10.2 fL (7.4-10.4); PLATELET COUNT 183 K/uL (130-400); RED CELL DISTRIBUTION WIDTH CV 13.7 % (11.5-14.5); WHITE BLOOD COUNT 5.71 K/uL (4.8-10.8)
[2017-10-23 14:20] LABS: ALBUMIN 3.9 gm/dl (3.4-5.0); ALKALINE PHOSPHATASE 68 U/L (45-117); ALT/SGPT 31 U/L (12-78); AST/SGOT 21 U/L (15-37); BLOOD UREA NITROGEN 29 mg/dl (7-18); CALCIUM 9.4 mg/dl (8.5-10.1); CARBON DIOXIDE 25 mmol/L (21-32); CHOLESTEROL 169 mg/dl (0-200); CREATININE 1.43 mg/dl (0.60-1.40); GLUCOSE 91 mg/dl (70-99); LDL CHOLESTEROL CALCULATED 81 mg/dl; POTASSIUM 3.9 mmol/L (3.5-5.1); SODIUM 139 mmol/L (136-145); TOTAL PROTEIN 7.5 gm/dl (6.4-8.2)
== END | disposition home or self-care (01) ==
LOC: C.LABPBG 08:33
PROVIDERS: ATTEND Urology
DX: C61 Malignant neoplasm of prostate (principal); I10 Essential (primary) hypertension; E78.5 Hyperlipidemia, unspecified; J43.9 Emphysema, unspecified; N39.41 Urge incontinence

== ENCOUNTER → 2018-01-04 | Outpatient (CLI) | payer OTHER ==
[~2018-01-04] MED LIST changes: -ALBU1AER9 INH; +FLUT1INH INH; -MOME100A INH; +OXYC-57 PO
[2018-01-04 13:42] LABS: BLOOD UREA NITROGEN 28 mg/dl (7-18); CREATININE 1.49 mg/dl (0.60-1.40)
== END | disposition home or self-care (01) ==
LOC: C.LABPBG 08:18
PROVIDERS: ATTEND Urology
DX: N39.41 Urge incontinence (principal); N39.0 Urinary tract infection, site not specified; C61 Malignant neoplasm of prostate; N39.3 Stress incontinence (female) (male)

== ENCOUNTER 2019-09-25 12:54 | Observation (INO) ==
--- NOTE | 2019-09-25 13:06 | Emergency Department Note ---
ED Visit Note I have seen and examined this patient with Lukas Felix and generally agree with the treatment plan as discussed. .
[2019-09-25] MEDS ORDERED: MoRPHine SULFATE 4 MG/ML 1 ML CARP\\VIAL IV STA (13:23)
[2019-09-25] MEDS ORDERED: ONDANSETRON INJ 2 MG/ML 2 ML VIAL IV STA ×2 (13:23→14:33)
[2019-09-25 13:39] LABS: Basophils # (auto) 0.01 K/uL (0-0.2); Basophils % (auto) 0.1 %; Eosinophils # (auto) 0.01 K/uL (0-0.5); Eosinophils % (auto) 0.1 %; Hematocrit (blood only) 40.1 % (42-52); Immature Granulocytes # (auto) 0.02 K/uL (0.00-0.02); Immature Granulocytes % (auto) 0.2 %; Lymphocytes # (auto) 1.15 K/uL (1.2-3.4); Lymphocytes % (auto) 9.7 %; Mean Corpuscular Hemoglobin 31.7 pg (25-34); Mean Corpuscular Hgb Conc 34.9 g/dL (32-36); Mean Corpuscular Volume 90.7 fL (80-100); Mean Platelet Volume 9.8 fL (7.4-10.4); Monocytes # (auto) 0.68 K/uL (0.11-0.59); Monocytes % (auto) 5.8 %; Neutrophils # (auto) 9.95 K/uL (1.4-6.5); Neutrophils % (auto) 84.1 %; Platelet Count 186 K/uL (130-400); RDW Coefficient of Variation 13.5 % (11.5-14.5); RDW Standard Deviation 44.6 fL (36.4-46.3); Red Blood Count 4.42 M/uL (4.7-6.1); White Blood Count 11.82 K/uL (4.8-10.8)
--- NOTE | 2019-09-25 13:42 | Emergency Department Note ---
History of Present Illness General Chief complaint: Abdominal Pain Stated complaint: ABD PAIN Time Seen by Provider: 09/25/19 13:03 History of Present Illness Maximum Pain Intensity: 7 69-year-old male who presents to the emergency department for evaluation of upper abdominal pain that has been intermittent since this past Sunday (5 days ago). The patient reports the pain did feel better on Sunday and Sunday, however worsened again on Sunday. Sunday night, he had a single episode of vomiting. Patient reports that he was operating a bulldozer this morning, and had to come home because the pain hurts so bad. He did lay down on the couch, which made it feel better. The patient reports that the pain does occasionally radiate up into the chest as well. The patient reports a history of chronic back pain, but denies any known stabbing pain radiating through to the back, or into the shoulder or neck. Patient does report a prior history of surgery for hiatal hernia. He also has a history of prostate cancer, status post prostatectomy and orchiectomy. The patient denies any other abdominal surgeries, including cholecystectomy. He denies any cardiopulmonary history. Wu rodriguez does have a history of reflux, but reports that this feels different. He has not noticed any change in color or consistency of his stools. He has not noticed any blood in his urine. The patient currently rates his discomfort a 7 out of 10, that he describes as a constant pain. Home Medications Home Medications Medication Instructions Recorded Confirmed Type albuterol sulfate 90 mcg/actuation 1 puffs INH Q6H PRN 06/18/18 09/25/19 History aerosol inhaler ibuprofen 400 mg PO Q6H PRN 08/25/19 09/25/19 History atorvastatin [Lipitor] 40 mg PO QAM 09/25/19 09/25/19 History fenofibrate nanocrystallized 48 mg PO QAM 09/25/19 09/25/19 History [Tricor] lidocaine [Lidoderm] 1 patch TOP DAILY PRN 09/25/19 09/25/19 History losartan [Cozaar] 100 mg PO QAM 09/25/19 09/25/19 History oxycodone-acetaminophen [Percocet] 1 tab PO Q6H PRN 09/25/19 09/25/19 History pantoprazole [Protonix] 40 mg PO QAM 09/25/19 09/25/19 History potassium citrate [Urocit-K 10] 10 meq PO BID 09/25/19 09/25/19 History Allergies Allergy/AdvReac Type Severity Reaction Status Date / Time No Known Allergies Allergy Unknown Verified 09/25/19 13:29 Past Med/Surg History Medical History Acute blood loss anemia (Resolved) Adenocarcinoma of prostate Aneurysm artery, iliac common Arthritis Asthma Dyslipidemia GERD (gastroesophageal reflux disease) Hypertension Kidney stone (Resolved 09/15/12) Lumbar disc disease Lumbar radiculopathy Lumbar spinal stenosis Lung nodule stable October 2017; no f/u recommended. Nephrolithiasis Paroxysmal ventricular tachycardia USED TO F/U WITH SYZMANSKI-DISCHARGED 2 YRS AGO-NOW F/U PCP Prediabetes Premature ventricular contractions Prostate cancer (Resolved) Pulmonary emphysema Urge incontinence of urine Surgical History H/O lithotripsy X MULTIPLE H/O right inguinal hernia repair History of total right knee replacement Hx of umbilical hernia repair Prostatectomy (09/15/12) S/P carpal tunnel release R/L S/P left inguinal hernia repair S/P orchiopexy Family History Brother Bladder cancer Myocardial infarction Hypertension Father Myocardial infarction Coronary heart disease Hypertension Mother Hypertension Sister Thyroid cancer Other Heart disease Social History Preferred Language: Cameroonian Communication Ability: Effective Manager Hvac Required: No Beliefs That Will Affect Care: None marital status: Current Living Situation: Spouse current occupational status: retired Other Information That Helps Us Care for You: No Feels Safe at Home: Yes Safety Concerns: Feels Safe At This Time Smoking Status: Never smoker Do You Dip or Chew Tobacco: No ; Second Hand Exposure: No ; Hx Alcohol Use: No Hx Substance Use: No Physical Activity Frequency: Daily Seatbelt Use: never Sunscreen Use: No Review of Systems 10 system review was performed and was negative except for pertinent positives and negatives as indicated in history of present illness Physical Exam Vital Signs Vital Signs - 24 hr 09/25/19 12:58 09/25/19 13:36 09/25/19 13:38 Temperature 37.1 C Temperature Source Oral Pulse Rate 97 H 94 H Pulse Rate [Apical] 96 H Pulse Rate from SpO2 Sensor 94 H Pulse Rhythm [Apical] Pulse Strength [Apical] Respiratory Rate 20 20 20 Respiratory Effort / Characteristics Non-Labored Spontaneous Non-Labored Spontaneous Respiratory Depth Normal Normal Respiratory Pattern Blood Pressure 122/68 160/91 H Blood Pressure [Left Arm] 160/91 H Blood Pressure Mean 86 141 Blood Pressure Mean [Left Arm] 114 Blood Pressure Position Sitting Blood Pressure Position [Left Arm] Pulse Oximetry 97 93 94 Oxygen Delivery Method Room Air Room Air Room Air Sepsis Recent Fever Within 48 Hours No Sepsis Action Taken by Nursing No Action Required 09/25/19 13:40 09/25/19 13:50 09/25/19 14:00 Temperature Temperature Source Pulse Rate 96 H 94 H 93 H Pulse Rate [Apical] Pulse Rate from SpO2 Sensor 96 H 94 H 94 H Pulse Rhythm [Apical] Pulse Strength [Apical] Respiratory Rate 18 16 21 Respiratory Effort / Characteristics Respiratory Depth Respiratory Pattern Blood Pressure 137/81 Blood Pressure [Left Arm] Blood Pressure Mean 91 Blood Pressure Mean [Left Arm] Blood Pressure Position Blood Pressure Position [Left Arm] Pulse Oximetry 93 90 91 Oxygen Delivery Method Room Air Room Air Room Air Sepsis Recent Fever Within 48 Hours Sepsis Action Taken by Nursing 09/25/19 14:10 09/25/19 14:20 09/25/19 14:30 Temperature Temperature Source Pulse Rate 96 H 94 H 92 H Pulse Rate [Apical] Pulse Rate from SpO2 Sensor 96 H 93 H 93 H Pulse Rhythm [Apical] Pulse Strength [Apical] Respiratory Rate 29 H 18 17 Respiratory Effort / Characteristics Respiratory Depth Respiratory Pattern Blood Pressure 137/81 Blood Pressure [Left Arm] Blood Pressure Mean 95 Blood Pressure Mean [Left Arm] Blood Pressure Position Blood Pressure Position [Left Arm] Pulse Oximetry 88 L 89 L 92 Oxygen Delivery Method Room Air Room Air Room Air Sepsis Recent Fever Within 48 Hours Sepsis Action Taken by Nursing 09/25/19 14:31 09/25/19 14:40 09/25/19 14:50 Temperature Temperature Source Pulse Rate 91 H 91 H 89 Pulse Rate [Apical] 91 H Pulse Rate from SpO2 Sensor 92 H 90 89 Pulse Rhythm [Apical] Pulse Strength [Apical] Respiratory Rate 18 25 H 19 Respiratory Effort / Characteristics Respiratory Depth Respiratory Pattern Blood Pressure Blood Pressure [Left Arm] 137/81 Blood Pressure Mean Blood Pressure Mean [Left Arm] 99 Blood Pressure Position Blood Pressure Position [Left Arm] Pulse Oximetry 91 93 Oxygen Delivery Method Room Air Room Air Room Air Sepsis Recent Fever Within 48 Hours Sepsis Action Taken by Nursing 09/25/19 15:06 09/25/19 15:10 09/25/19 15:20 Temperature Temperature Source Pulse Rate 89 88 85 Pulse Rate [Apical] Pulse Rate from SpO2 Sensor 89 85 Pulse Rhythm [Apical] Pulse Strength [Apical] Respiratory Rate 21 20 16 Respiratory Effort / Characteristics Respiratory Depth Respiratory Pattern Blood Pressure Blood Pressure [Left Arm] Blood Pressure Mean Blood Pressure Mean [Left Arm] Blood Pressure Position Blood Pressure Position [Left Arm] Pulse Oximetry 94 Oxygen Delivery Method Room Air Room Air Room Air Sepsis Recent Fever Within 48 Hours Sepsis Action Taken by Nursing 09/25/19 15:30 09/25/19 15:40 09/25/19 15:50 Temperature Temperature Source Pulse Rate 83 85 85 Pulse Rate [Apical] Pulse Rate from SpO2 Sensor 84 86 86 Pulse Rhythm [Apical] Pulse Strength [Apical] Respiratory Rate 25 H 19 17 Respiratory Effort / Characteristics Respiratory Depth Respiratory Pattern Blood Pressure 132/72 Blood Pressure [Left Arm] Blood Pressure Mean 96 Blood Pressure Mean [Left Arm] Blood Pressure Position Blood Pressure Position [Left Arm] Pulse Oximetry 94 94 94 Oxygen Delivery Method Room Air Room Air Room Air Sepsis Recent Fever Within 48 Hours Sepsis Action Taken by Nursing 09/25/19 16:00 09/25/19 16:01 09/25/19 16:11 Temperature Temperature Source Pulse Rate 85 87 Pulse Rate [Apical] Pulse Rate from SpO2 Sensor 84 87 Pulse Rhythm [Apical] Pulse Strength [Apical] Respiratory Rate 25 H 16 Respiratory Effort / Characteristics Respiratory Depth Respiratory Pattern Blood Pressure 140/93 Blood Pressure [Left Arm] Blood Pressure Mean 111 Blood Pressure Mean [Left Arm] Blood Pressure Position Blood Pressure Position [Left Arm] Pulse Oximetry 94 95 Oxygen Delivery Method Room Air Room Air Room Air Sepsis Recent Fever Within 48 Hours Sepsis Action Taken by Nursing 09/25/19 16:27 Temperature 36.8 C Temperature Source Temporal Artery Scan Pulse Rate Pulse Rate [Apical] 87 Pulse Rate from SpO2 Sensor Pulse Rhythm [Apical] Regular Pulse Strength [Apical] Normal Respiratory Rate 20 Respiratory Effort / Characteristics Non-Labored Spontaneous Respiratory Depth Normal Respiratory Pattern Regular Blood Pressure Blood Pressure [Left Arm] 126/78 Blood Pressure Mean Blood Pressure Mean [Left Arm] 94 Blood Pressure Position Blood Pressure Position [Left Arm] Semi-fowlers Pulse Oximetry 93 Oxygen Delivery Method Room Air Sepsis Recent Fever Within 48 Hours Sepsis Action Taken by Nursing CONSTITUTIONAL: Healthy and well nourished. Patient appears in moderate discomfort. HEENT: Normocephalic, atraumatic. Pupils equal, round and reactive. Ears and nares are clear. No scleral icterus or conjunctival injection. NECK: Full active range of motion without discomfort. LYMPHATICS: No cervical chain adenopathy. RESPIRATORY: Clear to auscultation bilaterally with no wheezing, crackles, rhonchi or stridor. Deep breathing does not worsen discomfort. CARDIOVASCULAR: Regular rate and rhythm with no murmurs, rubs or gallops. GASTROINTESTINAL: Bowel sounds present in all quadrants. Patient has upper central abdominal tenderness to palpation, as well as right lateral abdominal tenderness to palpation. Negative McBurney's point tenderness. Negative Beverly sign. Negative CVA tenderness. No abdominal rigidity, guarding or rebound. No pulsatile masses, and no bruits on auscultation. MUSCULOSKELETAL: Full range of motion of all joints without discomfort. INTEGUMENTARY: No rash or other significant dermatologic conditions noted. HEMATOLOGIC: No ecchymosis or petechiae. PSYCHIATRIC: Positive affect. NEUROLOGIC: No focal neurologic deficits noted. Course Course Patient history and physical exam were performed. Nurse's notes were reviewed. Vital signs were reviewed, showing an elevated blood pressure of 160/91. The patient does appear in mild to moderate discomfort. IV access was established, and labs were drawn. The patient was hydrated with a 500 cc normal saline bolus, and administered IV morphine and Zofran for pain. Review of labs shows a mild leukocytosis, hyperglycemia and elevated bilirubin, otherwise remaining labs are grossly normal. Troponin is also normal. An ECG was performed and was normal. Prior to going to CT, the patient did request additional pain relief. He was administered IV Tylenol, Dilaudid and additional Zofran. This significantly improved the patient's discomfort. CT of the chest, abdomen and pelvis with IV contrast confirms an acute cholecystitis. The patient was also seen and examined by Dr. Stearns, ED attending physician, who agrees with work-up and plan of care. Case was then discussed with Dr. Martinez' physician blood and plasma laboratory assistant, Santino Matt, with general surgery. Please see their dictation for further treatment and final disposition. At the time of transfer of care, the patient denied any significant discomfort or nausea. Administered Medications Lactated Ringer's (Lr) 1,000 mls @ 100 mls/hr IV .Q10H [place] Stop: 10/25/19 20:03 Last Admin: 09/25/19 20:43 Dose: 100 mls/hr Documented by: [id number] Miscellaneous (Remove Lidoderm Patch) 1 ea N/A DAILY@2100 [facility] Stop: 10/25/19 20:59 Last Admin: 09/25/19 21:29 Dose: Not Given Documented by: [id number] Morphine Sulfate (Morphine Sulfate) 2 mg IV Q1H PRN PRN Reason: MILD Pain (Scale 1,2,3) Stop: 10/09/19 20:03 Last Admin: 09/25/19 20:45 Dose: 2 mg Documented by: [id number] Potassium Citrate (Urocit-K) 10 meq PO BID [facility] Stop: 10/25/19 20:59 Last Admin: 09/25/19 22:03 Dose: Not Given Documented by: [id number] Discontinued Medications Bupivacaine HCl (Marcaine 0.5% Mpf) Confirm Administered Dose 30 ml .ROUTE .STK- MED ONE Stop: 09/25/19 16:37 Last Admin: 09/25/19 18:46 Dose: 30 ml Documented by: [id number] Fentanyl Citrate (Fentanyl Citrate) 25 mcg IV Q5M PRN PRN Reason: PACU Use Only-Pain Stop: 09/26/19 00:32 Last Admin: 09/25/19 19:34 Dose: 25 mcg Documented by: [id number] Fentanyl Citrate (Fentanyl Citrate) Confirm Administered Dose 100 mcg .ROUTE .STK-MED ONE Stop: 09/25/19 19:34 Last Admin: 09/25/19 20:49 Dose: Not Given Documented by: [id number] Hydromorphone HCl (Dilaudid) 0.5 mg IV Q15M PRN PRN Reason: Pain Stop: 10/09/19 14:32 Last Admin: 09/25/19 14:36 Dose: 0.5 mg Documented by: [id number] Acetaminophen (Ofirmev) 1,000 mg in 100 mls @ 400 mls/hr IV NOW STA Stop: 09/25/19 14:47 Last Infusion: 09/25/19 15:35 Dose: 0 mls/hr Documented by: [id number] Admin: 09/25/19 14:37 Dose: 400 mls/hr Documented by: [id number] Cefoxitin Sodium 2,000 mg/ (Dextrose) 60 mls @ 100 mls/hr IV NOW STA Stop: 09/25/19 17:40 Last Infusion: 09/25/19 20:52 Dose: 0 mls/hr Documented by: [id number] Admin: 09/25/19 17:45 Dose: 100 mls/hr Documented by: [id number] Promethazine HCl 25 mg/ Sodium (Chloride) 51 mls @ 204 mls/hr IV NOW STA Stop: 09/25/19 20:58 Last Infusion: 09/25/19 21:29 Dose: 0 mls/hr Documented by: [id number] Admin: 09/25/19 20:53 Dose: 204 mls/hr Documented by: [id number] Iothalamate Meglumine (Conray 60%) Confirm Administered Dose 50 ml .ROUTE .STK- MED ONE Stop: 09/25/19 16:59 Last Admin: 09/25/19 20:49 Dose: Not Given Documented by: [id number] Ioversol (Optiray 320 100ml) 90 ml IV ONCE PRN PRN Reason: Interaction Checking Stop: 09/29/19 14:58 Last Admin: 09/25/19 15:00 Dose: 90 ml Documented by: [id number] Morphine Sulfate (Morphine Sulfate) 4 mg IV NOW STA Stop: 09/25/19 13:24 Last Admin: 09/25/19 13:34 Dose: 4 mg Documented by: [id number] Ondansetron HCl (Zofran) 4 mg IV NOW STA Stop: 09/25/19 13:24 Last Admin: 09/25/19 13:34 Dose: 4 mg Documented by: [id number] Ondansetron HCl (Zofran) 4 mg IV NOW STA Stop: 09/25/19 14:34 Last Admin: 09/25/19 14:36 Dose: 4 mg Documented by: [id number] Ondansetron HCl (Zofran) 4 mg IV ONCE PRN PRN Reason: PACU Use Only-Nausea/Vomiting Stop: 09/26/19 00:32 Last Admin: 09/25/19 19:40 Dose: 4 mg Documented by: [id number] Ondansetron HCl (Zofran) Confirm Administered Dose 4 mg .ROUTE .STK-MED ONE Stop: 09/25/19 19:39 Last Admin: 09/25/19 20:49 Dose: Not Given Documented by: [id number] Medical Decision Making Medical Records Attestation: I reviewed the patient's medical records. Home Medications Current Medication List: was personally reviewed by me Laboratory Data Attestation: I reviewed the patient's lab results. Result diagrams: 09/25/19 13:31 09/25/19 13:31 Lab Results 09/25/19 09/25/19 09/25/19 Range/Units 13:31 13:31 16:20 WBC 11.82 H (4.8-10.8) K/uL RBC 4.42 L (4.7-6.1) M/uL Hgb 14.0 (14.0-18.0) g/dL Hct 40.1 L (42-52) % MCV 90.7 (80-100) fL MCH 31.7 (25-34) pg MCHC 34.9 (32-36) g/dL RDW Std Deviation 44.6 (36.4-46.3) fL RDW Coeff of [place] 13.5 (11.5-14.5) % Plt Count 186 (130-400) K/uL MPV 9.8 (7.4-10.4) fL Immature Gran % (Auto) 0.2 % Neut % (Auto) 84.1 % Lymph % (Auto) 9.7 % [place] % (Auto) 5.8 % Eos % (Auto) 0.1 % Baso % (Auto) 0.1 % Immature Gran # (Auto) 0.02 (0.00-0.02) K/uL Neut # (Auto) 9.95 H (1.4-6.5) K/uL Lymph # (Auto) 1.15 L (1.2-3.4) K/uL [place] # (Auto) 0.68 H (0.11-0.59) K/uL Eos # (Auto) 0.01 (0-0.5) K/uL Baso # (Auto) 0.01 (0-0.2) K/uL Sodium 136 (136-145) mmol/L Potassium 3.7 (3.5-5.1) mmol/L Chloride 110 H (98-107) mmol/L Carbon Dioxide 20 L (21-32) mmol/L Anion Gap 6.0 (3-11) BUN 18 (7-18) mg/dl Creatinine 1.08 (0.6-1.4) mg/dl Est Cr Clr Drug Dosing Not Reportable Est GFR ( Amer) 81.3 Est GFR (Non-Af Amer) 70.2 BUN/Creatinine Ratio 16.7 (10-20) Glucose 117 H (70-99) mg/dl Calcium 9.1 (8.5-10.1) mg/dl Total Bilirubin 1.6 H (0.2-1) mg/dl AST 14 L (15-37) U/L ALT 25 (12-78) U/L Alkaline Phosphatase 69 (45-117) U/L Troponin I < 0.015 (0-0.045) ng/ml Total Protein 7.3 (6.4-8.2) gm/dl Albumin 3.3 L (3.4-5.0) gm/dl Globulin 4.0 (2.5-4.0) gm/dl Albumin/Globulin Ratio 0.8 L (0.9-2) Lipase 56 L (73-393) U/L Urine Color Dark Yellow Urine Appearance Clear (Clear) Urine pH 5.0 (4.5-7.5) Ur Specific [place] > 1.045 H (1.000-1.030) Urine Protein Negative (Negative) Urine Glucose (UA) Negative (Negative) Urine Ketones Negative (Negative) Urine Blood Negative (Negative) Urine Nitrite Negative (Negative) Urine Bilirubin Negative (Negative) Urine Urobilinogen Negative (Negative) Ur Leukocyte Esterase Negative (Negative) Imaging Data Attestation: I personally reviewed and interpreted this imaging study as follows: My Impression: CT of the chest with IV contrast does not show any acute findings, including obvious aortic dissection, consolidations or pneumothorax. CT of the abdomen and pelvis with IV contrast shows evidence for acute cholecystitis. Radiologist reports were reviewed. Radiologist's Impression: CT OF THE CHEST WITH IV CONTRAST CLINICAL HISTORY: Upper abd pain - h/o AAA, hiatal hernia COMPARISON STUDY: Chest CT October 31, 2017. Chest radiograph May 28, 2018. TECHNIQUE: Following IV administration of 90 mL of Optiray-320, helical axial images of the chest were obtained. Sagittal and coronal reconstructions were viewed as well as maximal intensity projections on an independent 3-D workstation. Automated exposure control was utilized for the study. A dose lowering technique was utilized adhering to the principles of ALARA. CT DOSE: 1050.96 mGy.cm FINDINGS: A small Zenker diverticulum is again suspected. No enlarged axillary, mediastinal or hilar lymph nodes are present. The heart is mildly enlarged. There is extensive coronary artery calcification. There is no pericardial effusion. No pneumothorax or pleural effusion is noted. Numerous upper lobe predominant pulmonary nodules are unchanged from earlier exams. These are benign given stability. Central airways are patent. Bony thorax is unremarkable. The CT of the abdomen and pelvis will be reported separately. IMPRESSION: 1. No acute findings within the chest. 2. Mild cardiomegaly. Extensive coronary artery calcification. 3. No change in numerous pulmonary nodules which are benign given stability. CT OF THE ABDOMEN AND PELVIS WITH CONTRAST CLINICAL HISTORY: Upper abd pain - h/o hiatal hernia, diverticulosis COMPARISON STUDY: CT of the abdomen and pelvis March 19, 2018. TECHNIQUE: Following IV administration of 90 mL of Optiray-320, axial images of the abdomen and pelvis were obtained from the lung bases to the proximal femurs. Images were reviewed in the axial, sagittal, and coronal planes. IV contrast was administered without complication. Automated exposure control was utilized for the study. A dose lowering technique was utilized adhering to the principles of ALARA. FINDINGS: There is possible fatty infiltration of the liver. No hepatic lesions are noted. The gallbladder is distended. There is moderate gallbladder wall thickening and moderate pericholecystic infiltration. No biliary or pancreatic ductal dilatation is present. There is no peripancreatic infiltration. The spleen and adrenal glands are normal. Bilateral renal calculi measure up to 5 mm. There are no ureteral calculi. Is no evidence for a bowel obstruction. A penile pump is noted. Colonic diverticulosis is present without evidence for acute diverticulitis. The appendix is normal. There is no lymphadenopathy. IMPRESSION: 1. Findings consistent with acute cholecystitis. Moderate gallbladder wall thickening, distention and pericholecystic infiltration. 2. Bilateral nephrolithiasis. 3. Colonic diverticulosis without evidence for acute diverticulitis. ECG Data Attestation: I personally reviewed and interpreted this ECG as follows: Indication: + abdominal pain, + chest pain and + other (Preop) Rate (beats per minute): 80 Rhythm: + normal sinus ECG Intervals/blocks: + Normal QRS, + Normal QT and + Normal IA ECG ST segments: + Normal ST segments Comparison ECG Date: from (05/28/2018) Change: the following changes noted (Improved ECG appearance from prior ECG) Blood Pressure Blood Pressure Findings: Normal blood pressure MDM Narrative Patient presents to the emergency department with complaint of intermittent upper abdominal discomfort since [place] time, and now becoming progressively worse. Patient's clinical exam is certainly consistent with acute cholecystitis, with CT imaging confirming cholecystitis. The patient does have a prior history of hiatal hernia, which was also considered. It is also noted that the patient has a prior history of an iliac artery aneurysm. AAA and aortic dissection were also considered, given that the patient reports that the pain is radiating into the chest. Additional work-up is not suggestive of acute cardiac event. CT imaging also does not show evidence for pneumonia, pneumothorax or other acute intrathoracic etiologies. Additional laboratory studies are not suggestive of pancreatitis or acute hepatitis. Impression & Plan Acute cholecystitis Discharge Plan Visit Data *Final* Discharge Date/Time: 09/25/19 16:11 Chief Complaint: Abdominal Pain Stated Complaint: ABD PAIN ED Provider: Jesse Stearns ED Midlevel Provider: Lukas Felix Discharge Problem: Acute cholecystitis Patient Disposition: Admitted As Inpatient Discharge Instructions Interventions: ED Discharge Assessment Last Done: 09/25/19 16:11
[2019-09-25 13:56] LABS: Alanine Aminotransferase 25 U/L (12-78); Albumin Level 3.3 gm/dl (3.4-5.0); Aspartate Aminotransferase 14 U/L (15-37); BUN Creatinine Ratio 16.7 (10-20); Blood Urea Nitrogen 18 mg/dl (7-18); Calcium 9.1 mg/dl (8.5-10.1); Carbon Dioxide 20 mmol/L (21-32); Chloride 110 mmol/L (98-107); Est GFR (African American) 81.3; Est GFR (Non-African American) 70.2; Glucose 117 mg/dl (70-99); Lipase 56 U/L (73-393); Potassium 3.7 mmol/L (3.5-5.1); Sodium 136 mmol/L (136-145)
[2019-09-25 14:01] LABS: Albumin Globulin Ratio 0.8 (0.9-2); Alkaline Phosphatase 69 U/L (45-117); Bilirubin,Total 1.6 mg/dl (0.2-1); Total Protein 7.3 gm/dl (6.4-8.2); Troponin I < 0.015 ng/ml (0-0.045)
[2019-09-25] MEDS ORDERED: HYDROmorphone INJ 0.5 MG/0.5 ML SYR IV PRN (14:33)
[2019-09-25] MEDS ORDERED: ACETAMINOPHEN 1,000 MG/100 ML VIAL IV STA (14:33)
[2019-09-25] MEDS ORDERED: IOVERSOL 100ml IV PRN (14:59)
--- NOTE | 2019-09-25 15:14 | CT Scan Report ---
CT OF THE CHEST WITH IV CONTRAST CLINICAL HISTORY: Upper abd pain - h/o AAA, hiatal hernia COMPARISON STUDY: Chest CT October 31, 2017. Chest radiograph May 28, 2018. TECHNIQUE: Following IV administration of 90 mL of Optiray-320, helical axial images of the chest we re obtained. Sagittal and coronal reconstructions were viewed as well as maximal intensity projectio ns on an independent 3-D workstation. Automated exposure control was utilized for the study. A dose lowering technique was utilized adhering to the principles of ALARA. CT DOSE: 1050.96 mGy.cm FINDINGS: A small Zenker diverticulum is again suspected. No enlarged axillary, mediastinal or hilar lymph nodes are present. The heart is mildly enlarged. There is extensive coronary artery calcificat ion. There is no pericardial effusion. No pneumothorax or pleural effusion is noted. Numerous upper l obe predominant pulmonary nodules are unchanged from earlier exams. These are benign given stability. Central airways are patent. Bony thorax is unremarkable. The CT of the abdomen and pelvis will be re ported separately. IMPRESSION: 1. No acute findings within the chest. 2. Mild cardiomegaly. Extensive coronary artery calcification. 3. No change in numerous pulmonary nodules which are benign given stability. ACT 112: Negative or not required by law. Electronically signed by: Christian Sparrow M.D. 09/25/2019 3:12 PM
--- NOTE | 2019-09-25 15:23 | CT Scan Report ---
CT OF THE ABDOMEN AND PELVIS WITH CONTRAST CLINICAL HISTORY: Upper abd pain - h/o hiatal hernia, diverticulosis COMPARISON STUDY: CT of the abdomen and pelvis March 19, 2018. TECHNIQUE: Following IV administration of 90 mL of Optiray-320, axial images of the abdomen and pelvi s were obtained from the lung bases to the proximal femurs. Images were reviewed in the axial, sagitt al, and coronal planes. IV contrast was administered without complication. Automated exposure contro l was utilized for the study. A dose lowering technique was utilized adhering to the principles of A HORACIO. FINDINGS: There is possible fatty infiltration of the liver. No hepatic lesions are noted. The gallbl adder is distended. There is moderate gallbladder wall thickening and moderate pericholecystic infilt ration. No biliary or pancreatic ductal dilatation is present. There is no peripancreatic infiltratio n. The spleen and adrenal glands are normal. Bilateral renal calculi measure up to 5 mm. There are no ureteral calculi. Is no evidence for a bowel obstruction. A penile pump is noted. Colonic diverticul osis is present without evidence for acute diverticulitis. The appendix is normal. There is no lympha denopathy. IMPRESSION: 1. Findings consistent with acute cholecystitis. Moderate gallbladder wall thickening, distention and pericholecystic infiltration. 2. Bilateral nephrolithiasis. 3. Colonic diverticulosis without evidence for acute diverticulitis. ACT 112: Negative or not required by law. Electronically signed by: Christian Sparrow M.D. 09/25/2019 3:21 PM
--- NOTE | 2019-09-25 16:25 | History & Physical Report ---
Date of Service September 25, 2019 Assessment & Plan (1) Acute cholecystitis: Will plan for laparoscopic cholecystectomy with possible cholangiogram. Bili is slightly elevated, other LFTs are normal. History of Present Illness Primary Care Provider: Mary Gordon DO 69 y/o male with intermittent epigastric, RUQ pain, N/V for the past 6 days. Would feel better for a day at most then symptoms would return. Has had constant pain since last night after having a sip of peach soda. Recalls similar symptoms back in May but only lasted a day or two. Had 1/2 glass of water early this morning. Allergies Allergy/AdvReac Type Severity Reaction Status Date / Time No Known Allergies Allergy Unknown Verified 09/25/19 13:29 Home Medications Home Medications Medication Instructions Recorded Confirmed Type albuterol sulfate 90 mcg/actuation 1 puffs INH Q6H PRN 06/18/18 09/25/19 History aerosol inhaler ibuprofen 400 mg PO Q6H PRN 08/25/19 09/25/19 History atorvastatin [Lipitor] 40 mg PO QAM 09/25/19 09/25/19 History fenofibrate nanocrystallized 48 mg PO QAM 09/25/19 09/25/19 History [Tricor] lidocaine [Lidoderm] 1 patch TOP DAILY PRN 09/25/19 09/25/19 History losartan [Cozaar] 100 mg PO QAM 09/25/19 09/25/19 History oxycodone-acetaminophen [Percocet] 1 tab PO Q6H PRN 09/25/19 09/25/19 History pantoprazole [Protonix] 40 mg PO QAM 09/25/19 09/25/19 History potassium citrate [Urocit-K 10] 10 meq PO BID 09/25/19 09/25/19 History Past Med/Surg History Medical History Acute blood loss anemia (Resolved) Adenocarcinoma of prostate Aneurysm artery, iliac common Arthritis Asthma Dyslipidemia GERD (gastroesophageal reflux disease) Hypertension Kidney stone (Resolved 09/15/12) Lumbar disc disease Lumbar radiculopathy Lumbar spinal stenosis Lung nodule stable October 2017; no f/u recommended. Nephrolithiasis Paroxysmal ventricular tachycardia USED TO F/U WITH [facility]-DISCHARGED 2 YRS AGO-NOW F/U PCP Prediabetes Premature ventricular contractions Prostate cancer (Resolved) Pulmonary emphysema Urge incontinence of urine Surgical History H/O lithotripsy X MULTIPLE H/O right inguinal hernia repair History of total right knee replacement Hx of umbilical hernia repair Prostatectomy (09/15/12) S/P carpal tunnel release R/L S/P left inguinal hernia repair S/P orchiopexy Family History Brother Bladder cancer Myocardial infarction Hypertension Father Myocardial infarction Coronary heart disease Hypertension Mother Hypertension Sister Thyroid cancer Other Heart disease Social History Preferred Language: Haitian Communication Ability: Effective Hand Grinder Required: No Beliefs That Will Affect Care: None marital status: Current Living Situation: Spouse and Family current occupational status: retired Feels Safe at Home: Yes Smoking Status: Former smoker Second Hand Exposure: Yes (SPOUSE SMOKES) ; Hx Alcohol Use: No Hx Substance Use: No Physical Activity Frequency: Daily Seatbelt Use: never Sunscreen Use: No Review of Systems Constitutional: + chills; no fever Cardiovascular: no chest pain and no chest pain with activity Gastrointestinal: + abdominal pain, + nausea and + vomiting (at onset of sx) Physical Exam Constitutional: WD/WN, vitals as above Respiratory: normal respiratory effort, lungs clear to auscultation Cardiovascular: RRR, no murmur, no edema Gastrointestinal (Abdomen): Inspection/Auscultation: + abdominal surgical scar (umbilical/robotic) Percussion/Palpation: + abdomen tender (RUQ) and abdomen soft Skin: no rashes, warm and dry Psychiatric: A+Ox3, euthymic affect Results & Data Results & Data ([facility]) Vital Signs (Past 12 Hours) Vital Signs Temp Pulse Pulse Resp BP BP Pulse Ox 09/25/19 16:01 87 16 95 09/25/19 16:00 85 25 H 140/93 94 09/25/19 15:50 85 17 94 09/25/19 15:40 85 19 94 09/25/19 15:30 83 25 H 132/72 94 09/25/19 15:20 85 16 94 04/23/20 15:10 88 20 09/25/19 15:06 89 21 09/25/19 14:50 89 19 09/25/19 14:40 91 H 91 H 25 H 137/81 93 09/25/19 14:31 91 H 18 91 09/25/19 14:30 92 H 17 137/81 92 09/25/19 14:20 94 H 18 89 L 09/25/19 14:10 96 H 29 H 88 L 09/25/19 14:00 93 H 21 137/81 91 09/25/19 13:50 94 H 16 90 09/25/19 13:40 96 H 18 93 09/25/19 13:38 96 H 20 160/91 H 94 09/25/19 13:36 94 H 20 160/91 H 93 09/25/19 12:58 37.1 C 97 H 20 122/68 97 Supervising Physician Co-Signing Physician Notes Patient seen and examined, labs and imaging reviewed, agree with above. 69-year-old male presented with several day history of intermittent right upper quadrant epigastric abdominal pain. This seem to be worse after fatty meals. He also notices similar episodes back at [facility] and [place]. Pain did not get better and he was vomiting overnight, he presented to the emergency room this afternoon. On exam he is afebrile with stable vitals. He is tender to palpation in the right upper quadrant with localized guarding. He has some scars from prior surgery. Labs show leukocytosis with a white blood cell count of 11, and a total bilirubin of 1.6 but other LFTs are normal. CT scan showed thickened gallbladder wall with pericholecystic fluid and edema, likely acute cholecystitis. 69-year-old male with acute cholecystitis Plan for laparoscopic cholecystectomy with possible cholangiogram The risk of the procedure were discussed to include but not limited to bleeding, infection, retained stone, bile leak, damage surrounding structures including bile duct, need for future more extensive surgery, open surgery, failure to tr eat symptoms, and the risk of anesthesia Will admit for observation postop Okay for discharge tomorrow PG Care Time/CCT Total # of Minutes Spent Total Time Spent with Patient: Total time spent is greater than 50% in coordination of care (as documented) at patient's floor/unit and/or counseling patient: Coding Level of Care Code None Diagnoses Acute cholecystitis K81.0
--- NOTE | 2019-09-25 16:30 | Anesthesiology Consultation ---
Date of Service September 25, 2019 Assessment & Plan (1) Encounter for pre-operative examination: Chart Review Chart Review: Acceptable Risk for Surgery and Patient NOT seen in Pre Admission Testing Consults Requested none History Surgery Operation Date: 09/25/19 09:30 Proposed Procedures p Laparoscopic Cholecystectomy - Will Martinez DO, FACS Height/Weight Height: 5 ft 8 in Weight: 0 g Allergies Allergy/AdvReac Type Severity Reaction Status Date / Time No Known Allergies Allergy Unknown Verified 09/25/19 13:29 Medications Home Medications Medication Instructions Recorded Confirmed Last Taken albuterol sulfate 90 mcg/actuation 1 puffs INH Q6H PRN 06/18/18 09/25/19 04/07/19 aerosol inhaler ibuprofen 400 mg PO Q6H PRN 08/25/19 09/25/19 Unknown atorvastatin [Lipitor] 40 mg PO QAM 09/25/19 09/25/19 09/23/19 fenofibrate nanocrystallized 48 mg PO QAM 09/25/19 09/25/19 09/23/19 [Tricor] lidocaine [Lidoderm] 1 patch TOP DAILY PRN 09/25/19 09/25/19 Unknown losartan [Cozaar] 100 mg PO QAM 09/25/19 09/25/19 09/23/19 oxycodone-acetaminophen [Percocet] 1 tab PO Q6H PRN 09/25/19 09/25/19 Unknown pantoprazole [Protonix] 40 mg PO QAM 09/25/19 09/25/19 09/25/19 potassium citrate [Urocit-K 10] 10 meq PO BID 09/25/19 09/25/19 09/23/19 Active Medications Generic Name Dose Route Start Last Admin Trade Name Freq PRN Reason Stop Dose Admin Hydromorphone HCl 0.5 mg 09/25/19 14:33 09/25/19 14:36 Dilaudid IV 10/09/19 14:32 0.5 mg Q15M PRN Administration Pain Ioversol 90 ml 09/25/19 14:59 09/25/19 15:00 Optiray 320 100ml IV 09/29/19 14:58 90 ml ONCE PRN Administration Interaction Checking NPO Date Last Intake of Fluids: 09/25/19 Time Last Intake of Fluids: 06:00 Date Last Intake of Solids: 09/24/19 Past Medical History Medical History Acute blood loss anemia (Resolved) Adenocarcinoma of prostate Aneurysm artery, iliac common Arthritis Asthma Dyslipidemia GERD (gastroesophageal reflux disease) Hypertension Kidney stone (Resolved 09/15/12) Lumbar disc disease Lumbar radiculopathy Lumbar spinal stenosis Lung nodule stable October 2017; no f/u recommended. Nephrolithiasis Paroxysmal ventricular tachycardia USED TO F/U WITH [facility]-DISCHARGED 2 YRS AGO-NOW F/U PCP Prediabetes Premature ventricular contractions Prostate cancer (Resolved) Pulmonary emphysema Urge incontinence of urine Past Family History Family History Brother Bladder cancer Myocardial infarction Hypertension Father Myocardial infarction Coronary heart disease Hypertension Mother Hypertension Sister Thyroid cancer Other Heart disease Past Surgical History Surgical History H/O lithotripsy X MULTIPLE H/O right inguinal hernia repair History of total right knee replacement Hx of umbilical hernia repair Prostatectomy (09/15/12) S/P carpal tunnel release R/L S/P left inguinal hernia repair S/P orchiopexy Social History Smoking Status: Former smoker Hx Alcohol Use: No Hx Substance Use: No Physical Exam Vital Signs Last Vital Signs Temp 36.8 C 09/25/19 16:27 Pulse 87 09/25/19 16:27 Resp 20 09/25/19 16:27 BP 126/78 09/25/19 16:27 Pulse Ox 93 09/25/19 16:27 Testing Laboratory Results 09/25/19 13:31 09/25/19 13:31 Electrocardiogram Date: 09/25/19 Findings: + NSR @ (80) Other Testing CT OF THE CHEST WITH IV CONTRAST CLINICAL HISTORY: Upper abd pain - h/o AAA, hiatal hernia COMPARISON STUDY: Chest CT October 31, 2017. Chest radiograph May 28, 2018. TECHNIQUE: Following IV administration of 90 mL of Optiray-320, helical axial images of the chest were obtained. Sagittal and coronal reconstructions were viewed as well as maximal intensity projections on an independent 3-D workstati on. Automated exposure control was utilized for the study. A dose lowering technique was utilized adhering to the principles of ALARA. CT DOSE: 1050.96 mGy.cm FINDINGS: A small Zenker diverticulum is again suspected. No enlarged axillary, mediastinal or hilar lymph nodes are present. The heart is mildly enlarged. There is extensive coronary artery calcification. There is no pericardial effu kalee. No pneumothorax or pleural effusion is noted. Numerous upper lobe predominant pulmonary nodules are unchanged from earlier exams. These are benign given stability. Central airways are patent. Bony thorax is unremarkable. The CT of the abdomen and pelvis will be reported separately. IMPRESSION: 1. No acute findings within the chest. 2. Mild cardiomegaly. Extensive coronary artery calcification. 3. No change in numerous pulmonary nodules which are benign given stability. ACT 112: Negative or not required by law. Electronically signed by: Christian Sparrow M.D. 09/25/2019 3:12 PM Dictated: 09/25/19 1506 Transcribed: 09/25/19 1507
[2019-09-25] MEDS ORDERED: HYDROmorphone INJ 1 MG/ML SYRINGE IV PRN (16:32)
[2019-09-25] MEDS ORDERED: ATROPINE SULFATE 0.1 MG/ML 10ML SYR IV PRN (16:32)
[2019-09-25] MEDS ORDERED: PHENYLEPHRINE 100MCG/ML 5ML SYR IV PRN (16:32)
[2019-09-25] MEDS ORDERED: MEPERIDINE HCL 25 MG/ML CARP/VIAL IV PRN (16:32)
[2019-09-25] MEDS ORDERED: LABETALOL HCL IV 5 MG/ML 20ML IV PRN (16:32)
[2019-09-25] MEDS ORDERED: ePHEDrine sulfate 50 MG/ML AMP IV PRN (16:32)
[2019-09-25] MEDS ORDERED: fentaNYL citrate 100 MCG/2 ML VIAL IV PRN (16:32)
[2019-09-25] MEDS ORDERED: ONDANSETRON INJ 2 MG/ML 2 ML VIAL IV PRN ×2 (16:32→20:04)
[2019-09-25] MEDS ORDERED: BUPIVACAINE 0.5 % 5 MG/1 ML MPF 30ML VIAL ONE (16:36)
[2019-09-25 16:37] LABS: Appearance Urine Clear (Clear); Bilirubin Urine Negative (Negative); Blood Urine Negative (Negative); Color Urine Dark Yellow; Glucose Urine UA Negative (Negative); Ketones Urine Negative (Negative); Leukocyte Esterase Urine Negative (Negative); Nitrite Urine Negative (Negative); Protein Urine Negative (Negative); Specific Gravity Urine > 1.045 (1.000-1.030); Urobilinogen Urine Negative (Negative)
[2019-09-25] MEDS ORDERED: MIDAZOLAM HCL 1 MG/ML 2ML VIAL ONE (16:51)
[2019-09-25] MEDS ORDERED: LIDOCAINE HCL 2% 2 ML VIAL/AMP(20MG/ML) INFIL ONE (16:51)
[2019-09-25] MEDS ORDERED: fentaNYL citrate 100 MCG/2 ML VIAL ONE ×3 (16:51→19:33)
[2019-09-25] MEDS ORDERED: PROPOFOL IV EMULSION 10 MG/ML 20 ML VIAL IV ONE (16:51)
[2019-09-25] MEDS ORDERED: CONRAY 60% 50 ML VIAL ONE (16:58)
[2019-09-25] MEDS ORDERED: cefOXitin 2,000 MG in DEXTROSE 5% 50 ML IV STA (17:05)
[2019-09-25] MEDS ORDERED: ONDANSETRON INJ 2 MG/ML 2 ML VIAL ONE ×2 (17:44→19:38)
[2019-09-25] MEDS ORDERED: DEXAMETHASONE SOD INJ 4 MG/ML VIAL ONE (17:44)
[2019-09-25] MEDS ORDERED: GLYCOPYRROLATE 0.2 MG/ML VIAL ONE (18:40)
[2019-09-25] MEDS ORDERED: NEOSTIGMINE METHYLSULFATE 5 MG/5 ML SYR ONE (18:40)
--- NOTE | 2019-09-25 18:52 | Operative Report ---
PG Post Operative Report Pre & Post Diagnosis Operation Date: 09/25/19 09:30 Pre-Op Diagnosis: Acute Cholecystitis Post-Op Diagnosis: Acute Cholecystitis I identified the patient and participated in the time-out.: Yes Procedure Operation Date: 09/25/19 09:30 Actual Procedures p Laparoscopic Cholecystectomy(Not Applicable) - Will Martinez DO, BING Surgeon Will Martinez DO, BING Metal Furniture Repairer William Matt Estimated Blood Loss 15 Findings Consistent with Post-Op Diagnosis Gallbladder acutely and chronically inflamed. Omental adhesions taken down bluntly. Aspirated, appeared to be hydrops. Critical view of safety obtained, cystic duct and artery doubly clipped and divided. Good hemostasis. Specimens Gallbladder Anesthesia Type General Complications none Disposition Accompanied Patient To Recovery: No Disposition: Recovery Room Indications 69-year-old male presented with 6 days of intermittent postprandial right upper quadrant and epigastric abdominal pain. CT scan revealed acute cholecystitis. Plan for laparoscopic cholecystectomy with possible cholangiogram. The risks of the procedure were discussed, all questions were answered, and the patient agreed to proceed with surgery as planned. Description of Procedure The patient was properly identified, consented, and taken to the operating room where he was placed in the supine position. General endotracheal anesthesia was induced. SCDs and a safety belt were placed. Preoperative antibiotics were administered. The patient's abdomen was prepped and draped in the standard sterile fashion. A surgical timeout was performed and all parties were in agreement that this was the correct patient and procedure to be performed and we continued as planned. A stab incision was made in the left upper quadrant in the subcostal position and the Veress needle was inserted. Saline drop test confirmed entry into the peritoneum. The abdomen was insufflated with carbon dioxide which the patient tolerated without incident. An incision was made superior and to the left of the umbilicus overlying the rectus muscle and the abdomen was then entered using the Optiview technique and a 5 mm trocar. The laparoscope was inserted and no damage from initial trocar or Veress needle placement was noted, no gross abnormalities were noted within the 4 quadrants of the abdomen. An 11 mm port was placed in the subxiphoid position and two 5 mm ports were then placed in the right subcostal position. The patient was placed in reverse Trendelenburg position and rotated towards the left. The gallbladder was significantly inflamed, and appeared to be acute on chronic. Omental adhesions were taken down with blunt dissection. The gallbladder was aspirated to assist with retraction. The fluid appeared to be clear and appeared to be consistent with hydrops of the gallbladder. The dome of the gallbladder was retracted towards the left upper quadrant and the infundibulum was retracted toward the right lower quadrant revealing Calot's triangle. Peritoneal attachments were taken down with electrocautery and blunt dissection. The cystic duct and artery were circumferentially dissected. A window of safety was obtained showing the cystic duct entering the gallbladder with no aberrant structures noted. The cystic duct and artery were doubly clipped and divided. The gallbladder was then lifted off the gallbladder fossa with electrocautery. The gallbladder was placed in an Endo Catch bag and removed through the subxiphoid port site. The right upper quadrant was irrigated and hemostasis was found to be good. 5 mm trochars were removed under direct visualization and the abdomen was allowed to collapse. The subxiphoid port site fascia was closed with 0 Vicryl suture utilizing the Mumtaz-Amanda closure device. The wound was irrigated, and the skin of all ports was closed with 4-0 Monocryl subcuticular sutures. Dermabond was placed over the wounds. The patient was extubated in the operating room and taken to the PACU where he recovered without apparent incident. All sponge, instrument and needle counts were correct at the conclusion of the procedure. The patient tolerated the procedure well. The physician's assistant warehouse manager was present and scrubbed for the entirety of the case and was essential in positioning the patient, prepping and draping, retraction and exposure, driving the laparoscope, removal of the gallbladder, closure the incisions, and placement of the dressings. I attest to the content of the Intraoperative Record and any orders documented therein. Any exceptions are noted below.
--- NOTE | 2019-09-25 19:35 | Anesthesiology Progress Note ---
Date of Service September 25, 2019 Anesthesia Post Procedure Vital Signs Vital Signs: Temp Pulse Pulse Resp BP BP Pulse Ox 09/25/19 19:30 37.0 C 65 18 148/78 H 96 09/25/19 19:23 37.0 C 83 18 151/85 H 95 09/25/19 16:27 36.8 C 87 20 126/78 93 09/25/19 16:01 87 16 95 09/25/19 16:00 85 25 H 140/93 94 09/25/19 15:50 85 17 94 09/25/19 15:40 85 19 94 09/25/19 15:30 83 25 H 132/72 94 09/25/19 15:20 85 16 94 09/25/19 15:10 88 20 09/25/19 15:06 89 21 09/25/19 14:50 89 19 09/25/19 14:40 91 H 91 H 25 H 137/81 93 09/25/19 14:31 91 H 18 91 09/25/19 14:30 92 H 17 137/81 92 09/25/19 14:20 94 H 18 89 L 09/25/19 14:10 96 H 29 H 88 L 09/25/19 14:00 93 H 21 137/81 91 09/25/19 13:50 94 H 16 90 09/25/19 13:40 96 H 18 93 09/25/19 13:38 96 H 20 160/91 H 94 09/25/19 13:36 94 H 20 160/91 H 93 09/25/19 12:58 37.1 C 97 H 20 122/68 97 Pain Intensity Upper Medial Abdomen: Pain Intensity: 1 Transfer of Care Handoff Completed per policy Notes Mental Status: alert / awake / arousable Patient Amnestic to Procedure: Yes Nausea / Vomiting: adequately controlled Pain: adequately controlled Airway Patency, RR, SpO2: stable & adequate BP & HR: stable & adequate Hydration State: stable & adequate Anesthetic Complications: no major complications apparent and Pt Satisfied with anesthetic care
[2019-09-25] MEDS ORDERED: ALBUTEROL HFA 8 GM INHALER INH PRN (20:04)
[2019-09-25] MEDS ORDERED: OXYCODONE/ACETAMINOPHEN 5mg/325mg TAB PO PRN ×3 (20:04)
[2019-09-25] MEDS ORDERED: LIDOCAINE 5% 1 PATCH TD PRN (20:04)
[2019-09-25] MEDS ORDERED: MoRPHine SULFATE 2 MG/ML CARP IV PRN (20:04)
[2019-09-25] MEDS ORDERED: MoRPHine SULFATE 4 MG/ML 1 ML CARP\\VIAL IV PRN (20:04)
[2019-09-25] MEDS ORDERED: IBUPROFEN 200 MG TAB PO PRN (20:04)
[2019-09-25] MEDS: LACTATED RINGER'S 1,000 ML IV SCH (20:43)
[2019-09-25] MEDS ORDERED: PROMETHAZINE HCL 25 MG in SODIUM CHLORIDE 0.9% 50 ML IV STA (20:44)
[2019-09-25] MEDS: POTASSIUM CITRATE 10 MEQ TAB PO SCH (22:03)
[2019-09-26] MEDS: cefOXitin 2,000 MG in DEXTROSE 5% 50 ML IV SCH ×2 (00:07→05:43)
[2019-09-26] MEDS ORDERED: PROMETHAZINE HCL 12.5 MG in SODIUM CHLORIDE 0.9% 50 ML IV PRN (03:00)
[2019-09-26 05:32] LABS: Hematocrit (blood only) 36.7 % (42-52); Hemoglobin 12.2 g/dL (14.0-18.0); Immature Granulocytes # (auto) 0.03 K/uL (0.00-0.02); Immature Granulocytes % (auto) 0.3 %; Lymphocytes # (auto) 0.58 K/uL (1.2-3.4); Lymphocytes % (auto) 5.1 %; Mean Corpuscular Hemoglobin 30.4 pg (25-34); Mean Corpuscular Hgb Conc 33.2 g/dL (32-36); Mean Corpuscular Volume 91.5 fL (80-100); Mean Platelet Volume 9.9 fL (7.4-10.4); Monocytes # (auto) 1.29 K/uL (0.11-0.59); Monocytes % (auto) 11.2 %; Neutrophils # (auto) 9.57 K/uL (1.4-6.5); Neutrophils % (auto) 83.4 %; Platelet Count 180 K/uL (130-400); RDW Coefficient of Variation 13.4 % (11.5-14.5); RDW Standard Deviation 45.1 fL (36.4-46.3); Red Blood Count 4.01 M/uL (4.7-6.1); White Blood Count 11.47 K/uL (4.8-10.8)
[2019-09-26] MEDS: LACTATED RINGER'S 1,000 ML IV SCH (05:43)
[2019-09-26 06:02] LABS: Albumin Level 2.7 gm/dl (3.4-5.0); BUN Creatinine Ratio 13.4 (10-20); Bilirubin Direct 0.3 mg/dl (0-0.2); Calcium 8.9 mg/dl (8.5-10.1); Creatinine Clr Calc Pharmacy 58.5 ml/min; Est GFR (African American) 62.6; Est GFR (Non-African American) 54.1; Potassium 4.1 mmol/L (3.5-5.1)
[2019-09-26 06:13] LABS: Total Protein 6.5 gm/dl (6.4-8.2)
--- NOTE | 2019-09-26 07:47 | Anesthesiology Progress Note ---
Date of Service September 26, 2019 Anesthesia Post Procedure Vital Signs Vital Signs: Temp Pulse Pulse Pulse Resp BP BP 09/26/19 07:09 37.1 C 73 16 126/71 09/26/19 05:30 09/26/19 03:52 37.5 C 73 22 139/70 09/25/19 23:02 36.9 C 82 16 153/83 H 09/25/19 22:00 36.8 C 71 16 148/74 H 09/25/19 19:50 75 18 135/72 09/25/19 19:40 36.9 C 75 18 140/80 09/25/19 19:30 37.0 C 65 18 148/78 H 09/25/19 19:23 37.0 C 83 18 151/85 H 09/25/19 16:27 36.8 C 87 20 126/78 09/25/19 16:01 87 16 09/25/19 16:00 85 25 H 140/93 09/25/19 15:50 85 17 09/25/19 15:40 85 19 09/25/19 15:30 83 25 H 132/72 09/25/19 15:20 85 16 09/25/19 15:10 88 20 09/25/19 15:06 89 21 09/25/19 14:50 89 19 09/25/19 14:40 91 H 91 H 25 H 137/81 09/25/19 14:31 91 H 18 09/25/19 14:30 92 H 17 137/81 09/25/19 14:20 94 H 18 09/25/19 14:10 96 H 29 H 09/25/19 14:00 93 H 21 137/81 09/25/19 13:50 94 H 16 09/25/19 13:40 96 H 18 09/25/19 13:38 96 H 20 160/91 H 09/25/19 13:36 94 H 20 160/91 H 09/25/19 12:58 37.1 C 97 H 20 122/68 Pulse Ox 09/26/19 07:09 92 09/26/19 05:30 92 09/26/19 03:52 94 09/25/19 23:02 96 09/25/19 22:00 93 09/25/19 19:50 93 09/25/19 19:40 94 04/23/20 19:30 96 09/25/19 19:23 95 09/25/19 16:27 93 09/25/19 16:01 95 09/25/19 16:00 94 09/25/19 15:50 94 09/25/19 15:40 94 09/25/19 15:30 94 09/25/19 15:20 94 09/25/19 15:10 09/25/19 15:06 09/25/19 14:50 09/25/19 14:40 93 09/25/19 14:31 91 09/25/19 14:30 92 09/25/19 14:20 89 L 09/25/19 14:10 88 L 09/25/19 14:00 91 09/25/19 13:50 90 09/25/19 13:40 93 09/25/19 13:38 94 09/25/19 13:36 93 09/25/19 12:58 97 Pain Intensity Upper Medial Abdomen: Pain Intensity: 0 Notes Mental Status: alert / awake / arousable Patient Amnestic to Procedure: Yes Nausea / Vomiting: improving with treatment (pt had PONV (mild; only one episode of emesis)) Pain: adequately controlled Airway Patency, RR, SpO2: stable & adequate BP & HR: stable & adequate Hydration State: stable & adequate Anesthetic Complications: no major complications apparent and Pt Satisfied with anesthetic care
[2019-09-26] MEDS: POTASSIUM CITRATE 10 MEQ TAB PO SCH (08:15)
[2019-09-26] MEDS ORDERED: LOSARTAN POTASSIUM 50 MG TAB PO SCH (09:00)
[2019-09-26] MEDS ORDERED: ATORVASTATIN 40 MG TAB PO SCH (09:00)
[2019-09-26] MEDS ORDERED: PANTOprazole 40 MG TAB PO SCH (09:00)
--- NOTE | 2019-09-26 09:03 | Surgery Progress Note ---
Date of Service September 26, 2019 Assessment & Plan (1) Acute cholecystitis: POD 1 lap hallie ok for d/c bilirubin normalized Subjective tolerating diet, wants to go home Physical Exam Gastrointestinal (Abdomen): Inspection/Auscultation: + abdominal surgical incision (clean, dry); abdomen not distended Percussion/Palpation: abdomen soft Results & Data Vital Signs (Past 12 Hours) Vital Signs Temp Pulse Resp BP Pulse Ox 09/26/19 07:09 37.1 C 73 16 126/71 92 09/26/19 05:30 92 09/26/19 03:52 37.5 C 73 22 139/70 94 09/25/19 23:02 36.9 C 82 16 153/83 H 96 09/25/19 22:00 36.8 C 71 16 148/74 H 93 PG Care Time/CCT Total # of Minutes Spent Total Time Spent with Patient: Total time spent is greater than 50% in coordination of care (as documented) at patient's floor/unit and/or counseling patient: Coding Level of Care Code None Diagnoses Acute cholecystitis K81.0
--- NOTE | 2019-09-26 09:05 | Discharge Summary ---
Date of Service September 26, 2019 Admission HPI Per Admitting Provider 69 y/o male with intermittent epigastric, RUQ pain, N/V for the past 6 days. Would feel better for a day at most then symptoms would return. Has had constant pain since last night after having a sip of peach soda. Recalls similar symptoms back in May but only lasted a day or two. Had 1/2 glass of water early this morning. Principal Diagnosis Acute cholecystitis Discharge Exam Gastrointestinal (Abdomen) Inspection/Auscultation: + abdominal surgical incision (clean, dry); abdomen not distended Percussion/Palpation: abdomen soft Discharge Data Allergies Allergy/AdvReac Type Severity Reaction Status Date / Time No Known Allergies Allergy Unknown Verified 09/25/19 13:29 Consultations 09/25/19 15:29 ED Decision to Admit Stat Procedures Performed Operation Date: 09/25/19 09:30 Actual Procedures p Laparoscopic Cholecystectomy(Not Applicable) - Will Martinez DO, FACS Ordered Studies 09/25/19 13:23 CT abd pelvis IV con only Stat CT chest w con Stat Hospital Course (1) Acute cholecystitis: 69 y/o presented to the ER with RUQ abdominal pain. White count was 11,[address] was consistent with acute cholecystitis. He was taken to the operating room for laparoscopic cholecystectomy that evening and transferred to the surgical floor for overnight observation. In the morning he was able to advance diet and tolerate oral analgesics. He was stable for discharge home. Total Time Total Time Spent Total Time Spent (In Minutes): 10 Discharge Plan Discharge Items Patient Disposition: Home - Self-Care Reason For Visit: CHOLECYSTITIS Discharge Diagnosis: laparoscopic cholecystectomy Activity: Per Instructions section Lifting: No more than 10 pounds Bathing Comment: may shower, no soaking in tubs Exercise/Sports: Wait until after follow-up appointment Driving/Machine Use: do not resume driving while taking narcotics for pain Non-emergency contact: Surgeon Call non-emergency contact if: you have any medication questions, your symptoms worsen, your pain is not controlled, your pain is worsening, you have a fever, your temperature is above 101.5, your wound has increased redness and your wound pain has increased Follow-up/Referrals: Mary Gordon DO [Primary Care Provider] - Will Martinez DO, FACS [Physician] - (Please call to schedule follow up within 2 weeks, this may be a telephone follow up) Diet: Regular Addtl Attending Provider Instructions: Pending Studies at Discharge: Yes Studies:: surgical pathology Stand-Alone Forms: My [facility] [employer], Smoking Cessation Medications and DC Order Prescriptions: New oxycodone-acetaminophen [Percocet] 5-325 mg tablet 1 - 2 tab PO Q4H PRN (Reason: pain, initial therapy, max 6 daily) Qty: 15 RF: 0 Continued albuterol sulfate [Ventolin HFA] 90 mcg/actuation HFA aerosol inhaler 1 puffs INH Q6H PRN (Reason: Wheezing) RF: 0 ibuprofen 200 mg Tablet 400 mg PO Q6H PRN (Reason: Pain) RF: 0 atorvastatin [Lipitor] 40 mg tablet 40 mg PO QAM RF: 0 oxycodone-acetaminophen [Percocet] 5-325 mg tablet 1 tab PO Q6H PRN (Reason: Pain) RF: 0 potassium citrate [Urocit-K 10] 10 mEq (1,080 mg) tablet extended release 10 meq PO BID RF: 0 pantoprazole [Protonix] 40 mg tablet,delayed release (DR/EC) 40 mg PO QAM RF: 0 lidocaine [Lidoderm] 5 % adhesive patch,medicated 1 patch TOP DAILY PRN (Reason: pain) RF: 0 losartan [Cozaar] 100 mg tablet 100 mg PO QAM RF: 0 fenofibrate nanocrystallized [Tricor] 48 mg tablet 48 mg PO QAM RF: 0 Discharge Orders: Discharge Order (Routine); Ordered 09/26/19 Ordered By: William Matt Admission Data Admit Date/Time: 09/25/19 19:20 Attending Provider: Will Martinez Admit Provider: Will Martinez Primary Care Provider: Mary Gordon Other Providers: Will Martinez Coding Level of Care Code D/C Day Management <30 mins Diagnoses Acute cholecystitis K81.0
--- NOTE | 2019-09-26 15:20 | Electrocardiogram Report ---
Test Reason : Blood Pressure : / mmHG Vent. Rate : 080 BPM Atrial Rate : 080 BPM P-R Int : 160 ms QRS Dur : 086 ms QT Int : 368 ms P-R-T Axes : 042 002 -01 degrees QTc Int : 424 ms Normal sinus rhythm Nonspecific ST abnormality When compared with ECG of 28-MAY-2018 21:28, Criteria for Lateral infarct are no longer Present T wave inversion less evident in Inferior leads T wave inversion no longer evident in Lateral leads Confirmed by Daryl Ly ([id number]) on 09/26/2019 3:20:40 PM Referred By: REFERRED SELF Confirmed By:Raoul Ly
== END 2019-09-26 10:46 | disposition home or self-care (01) ==
LOC: ED 12:54 → 3E 16:11 → OR 16:11

== ENCOUNTER 2019-09-28 07:38 | Inpatient (IN) ==
[2019-09-28] MEDS ORDERED: PIPERACILLIN/TAZOBACTAM 4.5 GM/120 ML BAG IV ONE (08:04)
[2019-09-28] MEDS ORDERED: PIPERACILL/TAZOBAC CONSULT ACTIVE PRN ×2 (08:04→11:40)
[2019-09-28] MEDS ORDERED: SODIUM CHLORIDE 0.9% 1000ML 1,000 ML IV ONE (08:04)
[2019-09-28] MEDS ORDERED: ONDANSETRON INJ 2 MG/ML 2 ML VIAL IV STA (08:09)
[2019-09-28] MEDS ORDERED: MoRPHine SULFATE 4 MG/ML 1 ML CARP\\VIAL IV STA (08:09)
--- NOTE | 2019-09-28 08:30 | Emergency Department Note ---
History of Present Illness General Chief Complaint: Vomiting Stated Complaint: VOMITING,DRY MOUTH, PAIN - GALLBLADDER REMOVED Time Seen by Provider: 09/28/19 07:51 Source: patient Mode of arrival: ambulatory Limitations: no limitations History of Present Illness Provider Complaint: abdominal pain and other (nausea/vomiting) Onset (ago): 1 day(s) Pain Consistency: constant Location: epigastric Radiation: none Migration to: no migration Severity: severe Maximum Pain Intensity: 9 Current Pain Intensity: 9 Quality: + fullness and + sharp Relieved By: + nothing Exacerbated By: + eating and + movement Context: + recent surgery/procedure (Cholecystectomy 09/25/2019) Associated Symptoms: + nausea, + vomiting and + chills Treatments prior to arrival: prescription analgesics This 69-year-old male patient with significant past medical history of prostate cancer, hypertension, hyperlipidemia, and GERD, who is 3 days status post laparoscopic cholecystectomy presents to the emergency department, ambulatory, accompanied by his daughter with complaints of epigastric pain which began yesterday and radiates down toward the lower abdomen. The patient states the procedure was done night. He was discharged Sunday and was doing well Sunday and into Sunday when his symptoms began. The patient states he has been experiencing chills, increased epigastric abdominal pain, nausea, and vomiting. He reports a decreased appetite for the past few days and has not been eating well. He has been taking Percocet without improvement of his symptoms, most recent dose was 2 tablets at 6 AM. The patient denies any associated diarrhea or constipation. He is passing gas. He denies any chest pain or dyspnea. He does feel bloated. He denies any pain into his back or shoulder. He does report one episode of hematuria Sunday evening, but states this is not always unusual for him, as he has a history of kidney stones. He states the hematuria seems to have resolved. Patient denies any cough, dyspnea, weakness, headache, dizziness, numbness, tingling, or other associated symptoms. Home Medications Home Medications Medication Instructions Recorded Confirmed Type albuterol sulfate 90 mcg/actuation 1 puffs INH Q6H PRN 06/18/18 09/28/19 History aerosol inhaler ibuprofen 400 mg PO Q6H PRN 08/25/19 09/28/19 History atorvastatin [Lipitor] 40 mg PO QAM 09/25/19 09/28/19 History fenofibrate nanocrystallized 48 mg PO QAM 09/25/19 09/28/19 History [Tricor] lidocaine [Lidoderm] 1 patch TOP DAILY PRN 09/25/19 09/28/19 History losartan [Cozaar] 100 mg PO QAM 09/25/19 09/28/19 History pantoprazole [Protonix] 40 mg PO QAM 09/25/19 09/28/19 History potassium citrate [Urocit-K 10] 10 meq PO BID 09/25/19 09/28/19 History oxycodone-acetaminophen [Percocet] 1 - 2 tab PO Q4H PRN #15 tab 09/26/19 09/28/19 Rx Allergies Allergy/AdvReac Type Severity Reaction Status Date / Time No Known Allergies Allergy Unknown Verified 09/28/19 08:30 Past Med/Surg History Medical History Acute blood loss anemia (Resolved) Adenocarcinoma of prostate Aneurysm artery, iliac common Arthritis Asthma Dyslipidemia GERD (gastroesophageal reflux disease) Hypertension Kidney stone (Resolved 09/15/12) Lumbar disc disease Lumbar radiculopathy Lumbar spinal stenosis Lung nodule stable October 2017; no f/u recommended. Nephrolithiasis Paroxysmal ventricular tachycardia USED TO F/U WITH SYZMANSKI-DISCHARGED 2 YRS AGO-NOW F/U PCP Prediabetes Premature ventricular contractions Prostate cancer (Resolved) Pulmonary emphysema Urge incontinence of urine Surgical History H/O lithotripsy X MULTIPLE H/O right inguinal hernia repair History of total right knee replacement Hx of umbilical hernia repair Prostatectomy (09/15/12) S/P carpal tunnel release R/L S/P laparoscopic cholecystectomy (09/25/19) Laparoscopic cholecystectomy 09/25/19 Dr. Martinez S/P left inguinal hernia repair S/P orchiopexy Social History Preferred Language: Slovak Communication Ability: Effective Ceo Na Required: No Beliefs That Will Affect Care: None marital status: Current Living Situation: Spouse current occupational status: retired Feels Safe at Home: Yes Safety Concerns: Feels Safe At This Time Smoking Status: Former smoker Second Hand Exposure: No ; Hx Alcohol Use: No Hx Substance Use: No Physical Activity Frequency: Daily Seatbelt Use: never Sunscreen Use: No Review of Systems A total of 10 systems reviewed and were otherwise negative Physical Exam Vital Signs: Vital Signs - 24 hr 09/28/19 07:47 09/28/19 08:04 09/28/19 08:41 Temperature 37.5 C Temperature Source Oral Pulse Rate 106 H Pulse Rate [Apical ] Respiratory Rate 24 Respiratory Effort / Characteristics Non-Labored Sponta neous Respiratory Depth Normal Respiratory Patter n Regular Blood Pressure 118/83 Blood Pressure [Le ft Arm] Blood Pressure Katharine n 94 Blood Pressure Katharine n [Left Arm] Pulse Oximetry 91 91 91 Oxygen Delivery Me thod Room Air Room Air Room Air Nasal Can nula Oxygen Flow Rate 0 Sepsis Recent Feve r Within 48 Hours No Sepsis Action Take n by Nursing No Action Required Oxygen Flow Rate - Titration 2 Pulse Oximetry Pos t Tiitration 94 09/28/19 09:39 Temperature Temperature Source Pulse Rate Pulse Rate [Apical ] 85 Respiratory Rate 18 Respiratory Effort / Characteristics Respiratory Depth Respiratory Patter n Blood Pressure Blood Pressure [Le ft Arm] 122/73 Blood Pressure Katharine n Blood Pressure Katharine n [Left Arm] 89 Pulse Oximetry 94 Oxygen Delivery Me thod Nasal Cannula Oxygen Flow Rate 2 Sepsis Recent Feve r Within 48 Hours Sepsis Action Take n by Nursing Oxygen Flow Rate - Titration Pulse Oximetry Pos t Tiitration Physical Exam: VITALS: Vitals are noted on the nurse's note and reviewed by myself. Vital signs stable. GENERAL: This is a 69-year-old white male, in no acute distress, nondiaphoretic, well-developed well-nourished. SKIN: Incision sites on the abdomen are healing well. Very mild surrounding erythema, but no evidence of infection or cellulitis. No purulent discharge from the wounds. The skin was otherwise pale, but without rashes, erythema, edema, or bruising. There is no tenting of the skin. Capillary refill less than 2 seconds. HEAD: Normocephalic atraumatic. NECK: Supple without nuchal rigidity. No lymphadenopathy. No JVD. HEART: Regular rate and rhythm without murmurs gallops or rubs. LUNGS: Clear to auscultation bilaterally without wheezes, rales or rhonchi. No retractions or accessory muscle use. ABDOMEN: Positive bowel sounds x 4. Normal tympanic percussion. Epigastric tenderness to palpation. Abdomen is otherwise mildly distended, but soft, nontender, without masses or organomegaly. No guarding or rebound tenderness. MUSCULOSKELETAL: No muscle atrophy, erythema, or edema noted. Full range of motion without joint tenderness in all extremities. No tenderness to palpation. Normal gait. Strength 5/5 throughout. NEURO: Patient was alert and oriented to person place and time. No focal ne urological deficits. Course Course The patient was seen and evaluated as above. An order was placed for continuous cardiac monitoring. The monitor shows a sinus tachycardia rhythm at a rate of 106 bpm. I discussed the case with my attending physician. IV access obtained, labs drawn. Patient medicated with IV fluids, morphine, Zofran, and Zosyn. Imaging performed and reviewed by myself and radiologist as noted. Labs reviewed by myself. I discussed the case with the surgeon on-call, Dr. Pryor. Did agree to see and evaluate the patient. I discussed the findings and recommendation for surgical consult with the patient at bedside. He was agreeable. He was reassessed at this time and is comfortable. The patient was seen and evaluated by Dr. Pryor. He did agree to admit the patient for further management. Please see his dictation regarding ongoing management care of this patient. Administered Medications Ioversol (Optiray 320 100ml) 93 ml IV ONCE PRN PRN Reason: Interaction Checking Stop: 10/02/19 08:47 Last Admin: 09/28/19 08:48 Dose: 93 ml Documented by: [id number] Discontinued Medications Sodium Chloride (Nss 1000ml) 1,000 mls @ 999 mls/hr IV .Q1H1M ONE Stop: 09/28/19 09:04 Last Infusion: 09/28/19 09:34 Dose: 0 mls/hr Documented by: [id number] Admin: 09/28/19 08:33 Dose: 999 mls/hr Documented by: [id number] Piperacillin Sod/Tazobactam Sod (Zosyn) 4.5 gm in 120 mls @ 240 mls/hr IV NOW ONE Stop: 09/28/19 08:33 Last Infusion: 09/28/19 09:16 Dose: 0 mls/hr Documented by: [id number] Admin: 09/28/19 08:33 Dose: 240 mls/hr Documented by: [id number] Morphine Sulfate (Morphine Sulfate) 4 mg IV NOW STA Stop: 09/28/19 08:10 Last Admin: 09/28/19 08:32 Dose: 4 mg Documented by: [id number] Ondansetron HCl (Zofran) 4 mg IV NOW STA Stop: 09/28/19 08:10 Last Admin: 09/28/19 08:32 Dose: 4 mg Documented by: [id number] Medical Decision Making Differential Diagnosis + peptic ulcer disease, + biliary pathology, + UTI, + obstruction, + mesenteric ischemia, + aortic pathology, + infections, + inflammatory bowel disease, + renal colic, + abdominal pain, + appendicitis, + calculus of kidney, + constipation, + diverticulitis, + endometriosis, + gastroenteritis, + pancreatitis and + small bowel obstruction In addition to the above, bile leak, solid organ injury, among others were considered. Medical Records Attestation: I reviewed the patient's medical records. Home Medications Current Medication List: was personally reviewed by me Laboratory Data Attestation: I reviewed the patient's lab results. No leukocytosis. Very mild anemia with a hemoglobin of 13.3. No thrombocytopenia. Coags normal. Creatinine elevated at 1.5. AST/ALT and bilirubin elevated. Troponin negative. Lactic acid 1.1. Lipase elevated at greater than 3000. Result diagrams: 09/28/19 08:20 09/28/19 08:20 Lab Results 09/28/19 09/28/19 09/28/19 Range/Units 08:20 08:20 08:20 WBC 8.30 (4.8-10.8) K/uL RBC 4.28 L (4.7-6.1) M/uL Hgb 13.3 L (14.0-18.0) g/dL POC Hgb (14.0-18.0) g/dl Hct 39.0 L (42-52) % POC Hct (42-52) % MCV 91.1 (80-100) fL MCH 31.1 (25-34) pg MCHC 34.1 (32-36) g/dL RDW Std Deviation 44.9 (36.4-46.3) fL RDW Coeff of Bijan 13.5 (11.5-14.5) % Plt Count 228 (130-400) K/uL MPV 9.9 (7.4-10.4) fL Immature Gran % (Auto) 0.2 % Neut % (Auto) 87.9 % Lymph % (Auto) 3.4 % Price % (Auto) 8.3 % Eos % (Auto) 0.1 % Baso % (Auto) 0.1 % Immature Gran # (Auto) 0.02 (0.00-0.02) K/uL Neut # (Auto) 7.29 H (1.4-6.5) K/uL Lymph # (Auto) 0.28 L (1.2-3.4) K/uL Price # (Auto) 0.69 H (0.11-0.59) K/uL Eos # (Auto) 0.01 (0-0.5) K/uL Baso # (Auto) 0.01 (0-0.2) K/uL PT 10.8 (9.0-12.0) Seconds INR 1.0 (0.9-1.1) APTT 25.1 (21.0-31.0) Seconds PTT Ratio 0.9 POC Sodium (135-144) mmol/L Sodium 136 (136-145) mmol/L POC Potassium (3.3-5.0) mmol/L Potassium 3.9 (3.5-5.1) mmol/L POC Chloride (101-112) mmol/L Chloride 106 (98-107) mmol/L Carbon Dioxide 25 (21-32) mmol/L POC Total CO2 (24-31) mEq/l Anion Gap 6.0 (3-11) POC Anion Gap (16-25) mmol/L POC BUN (7-18) mg/dl BUN 22 H (7-18) mg/dl Creatinine 1.47 H (0.6-1.4) mg/dl POC Creatinine (0.6-1.3) mg/dl Est Cr Clr Drug Dosing 52.8 ml/min Est GFR ( Amer) 56.0 Est GFR (Non-Af Amer) 48.3 BUN/Creatinine Ratio 15.1 (10-20) Glucose 121 H (70-99) mg/dl POC Glucose (other) (70-99) mg/dl Lactate (0.4-2.0) mmol/L Calcium 9.6 (8.5-10.1) mg/dl POC Ioniz Calcium Krista (1.12-1.32) mmol/l Magnesium 1.9 (1.8-2.4) mg/dl Total Bilirubin 3.6 H (0.2-1) mg/dl Direct Bilirubin (0-0.2) mg/dl AST 733 H (15-37) U/L ALT 791 H (12-78) U/L Alkaline Phosphatase 309 H (45-117) U/L Troponin I < 0.015 (0-0.045) ng/ml Total Protein 7.0 (6.4-8.2) gm/dl Albumin 2.8 L (3.4-5.0) gm/dl Globulin 4.2 H (2.5-4.0) gm/dl Albumin/Globulin Ratio 0.7 L (0.9-2) Lipase (73-393) U/L 09/28/19 09/28/19 09/28/19 Range/Units 08:20 08:20 08:20 WBC (4.8-10.8) K/uL RBC (4.7-6.1) M/uL Hgb (14.0-18.0) g/dL POC Hgb (14.0-18.0) g/dl Hct (42-52) % POC Hct (42-52) % MCV (80-100) fL MCH (25-34) pg MCHC (32-36) g/dL RDW Std Deviation (36.4-46.3) fL RDW Coeff of Bijan (11.5-14.5) % Plt Count (130-400) K/uL MPV (7.4-10.4) fL Immature Gran % (Auto) % Neut % (Auto) % Lymph % (Auto) % Price % (Auto) % Eos % (Auto) % Baso % (Auto) % Immature Gran # (Auto) (0.00-0.02) K/uL Neut # (Auto) (1.4-6.5) K/uL Lymph # (Auto) (1.2-3.4) K/uL Price # (Auto) (0.11-0.59) K/uL Eos # (Auto) (0-0.5) K/uL Baso # (Auto) (0-0.2) K/uL PT (9.0-12.0) Seconds INR (0.9-1.1) APTT (21.0-31.0) Seconds PTT Ratio POC Sodium (135-144) mmol/L Sodium (136-145) mmol/L POC Potassium (3.3-5.0) mmol/L Potassium (3.5-5.1) mmol/L POC Chloride (101-112) mmol/L Chloride (98-107) mmol/L Carbon Dioxide (21-32) mmol/L POC Total CO2 (24-31) mEq/l Anion Gap (3-11) POC Anion Gap (16-25) mmol/L POC BUN (7-18) mg/dl BUN (7-18) mg/dl Creatinine (0.6-1.4) mg/dl POC Creatinine (0.6-1.3) mg/dl Est Cr Clr Drug Dosing ml/min Est GFR ( Amer) Est GFR (Non-Af Amer) BUN/Creatinine Ratio (10-20) Glucose (70-99) mg/dl POC Glucose (other) (70-99) mg/dl Lactate 1.1 (0.4-2.0) mmol/L Calcium (8.5-10.1) mg/dl POC Ioniz Calcium Krista (1.12-1.32) mmol/l Magnesium (1.8-2.4) mg/dl Total Bilirubin (0.2-1) mg/dl Direct Bilirubin 2.7 H (0-0.2) mg/dl AST (15-37) U/L ALT (12-78) U/L Alkaline Phosphatase (45-117) U/L Troponin I (0-0.045) ng/ml Total Protein (6.4-8.2) gm/dl Albumin (3.4-5.0) gm/dl Globulin (2.5-4.0) gm/dl Albumin/Globulin Ratio (0.9-2) Lipase 3448 H (73-393) U/L 09/28/19 Range/Units 08:28 WBC (4.8-10.8) K/uL RBC (4.7-6.1) M/uL Hgb (14.0-18.0) g/dL POC Hgb 12.9 L (14.0-18.0) g/dl Hct (42-52) % POC Hct 38 L (42-52) % MCV (80-100) fL MCH (25-34) pg MCHC (32-36) g/dL RDW Std Deviation (36.4-46.3) fL RDW Coeff of Bijan (11.5-14.5) % Plt Count (130-400) K/uL MPV (7.4-10.4) fL Immature Gran % (Auto) % Neut % (Auto) % Lymph % (Auto) % Price % (Auto) % Eos % (Auto) % Baso % (Auto) % Immature Gran # (Auto) (0.00-0.02) K/uL Neut # (Auto) (1.4-6.5) K/uL Lymph # (Auto) (1.2-3.4) K/uL Price # (Auto) (0.11-0.59) K/uL Eos # (Auto) (0-0.5) K/uL Baso # (Auto) (0-0.2) K/uL PT (9.0-12.0) Seconds INR (0.9-1.1) APTT (21.0-31.0) Seconds PTT Ratio POC Sodium 137 (135-144) mmol/L Sodium (136-145) mmol/L POC Potassium 3.9 (3.3-5.0) mmol/L Potassium (3.5-5.1) mmol/L POC Chloride 104 (101-112) mmol/L Chloride (98-107) mmol/L Carbon Dioxide (21-32) mmol/L POC Total CO2 22 L (24-31) mEq/l Anion Gap (3-11) POC Anion Gap 16.0 (16-25) mmol/L POC BUN 21 H (7-18) mg/dl BUN (7-18) mg/dl Creatinine (0.6-1.4) mg/dl POC Creatinine 1.5 H (0.6-1.3) mg/dl Est Cr Clr Drug Dosing ml/min Est GFR ( Amer) Est GFR (Non-Af Amer) BUN/Creatinine Ratio (10-20) Glucose (70-99) mg/dl POC Glucose (other) 124 H (70-99) mg/dl Lactate (0.4-2.0) mmol/L Calcium (8.5-10.1) mg/dl POC Ioniz Calcium Krista 1.25 (1.12-1.32) mmol/l Magnesium (1.8-2.4) mg/dl Total Bilirubin (0.2-1) mg/dl Direct Bilirubin (0-0.2) mg/dl AST (15-37) U/L ALT (12-78) U/L Alkaline Phosphatase (45-117) U/L Troponin I (0-0.045) ng/ml Total Protein (6.4-8.2) gm/dl Albumin (3.4-5.0) gm/dl Globulin (2.5-4.0) gm/dl Albumin/Globulin Ratio (0.9-2) Lipase (73-393) U/L Imaging Data Radiologist's Impression: XR chest 1V portable CLINICAL HISTORY: SEPSIS dyspnea COMPARISON STUDY: 05/28/2018 FINDINGS: Small bibasilar parenchymal infiltrative/atelectatic change. Mid and upper lungs are clear. Diaphragms are smooth. IMPRESSION: Bibasilar parenchymal infiltrates combined with mild atelectatic change. ACT 112: Negative or not required by law. The above report was generated using voice recognition software. It may contain grammatical, syntax or spelling errors. Electronically signed by: eJsus Ramirez M.D. 09/28/2019 9:[address] abd pelvis IV con only CT DOSE: 647.27 mGy.cm HISTORY: Pain epigastric pain, 3 days s/p cholecystectomy TECHNIQUE: Multiaxial CT images of the abdomen and pelvis were performed following the use of intravenous contrast. A dose lowering technique was utilized adhering to the principles of ALARA. COMPARISON STUDY: 09/25/2019 FINDINGS: Lung bases show slightly progressive bilateral parenchymal infiltrative change. Subsegmental atelectasis is also present. The amount of fluid within the distal esophagus consistent with a component of gastroesophageal reflux. Interval cholecystectomy. Mild fatty replacement of the liver. Spleen and pancreas appear unremarkable. There are findings of nonspecific infiltrative changes within the gallbladder fossa region as well as in the right paracolic gutter and right flank. No evidence for drainable abscess or collection. The adrenal glands are normal. Kidneys negative for hydronephrosis. Nonobstructing renal nephrocalcinosis is again noted. The bowel pattern overall is considered nonobstructive. 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 This is unchanged. There are findings of chronic sigmoid diverticulosis. There is no evidence for diverticulitis. There is a fat-containing left inguinal hernia which is unchanged. Bladder is midline. IMPRESSION: 1. Interval cholecystectomy. 2. Infiltrative change of the gallbladder fossa region, right flank, as well as right anterior abdominal region. 3. The bulk of these findings appear to relate to simple postoperative change, although this patient should be monitored clinically to exclude any possibility of an early inflammatory process. 4. Mildly progressive bibasilar parenchymal infiltrates. 5. Scattered colonic diverticulosis with no evidence for acute diverticulitis. ACT 112: Negative or not required by law. The above report was generated using voice recognition software. It may contain grammatical, syntax or spelling errors. Electronically signed by: Jesus Ramirez M.D. 09/28/2019 9:12 AM ECG Data Attestation: I personally reviewed and interpreted this ECG as follows: Indication: tachycardia Rate (beats per minute): 90 Rhythm: sinus with SA Findings: no T-wave inversion, no ST elevation, no acute ischemic change and no ectopy Comparison ECG Date: from (09/25/2019) Change: no significant change Blood Pressure Blood Pressure Findings: Normal blood pressure MDM Narrative This 69-year-old male patient presents the emergency department today for evaluation of abdominal pain, nausea, vomiting status post cholecystectomy. Patient is 3 days postop, and was doing well until last night. Examination here concerning for mild tachycardia and borderline hypoxia. The patient is afebrile, but did have Tylenol prior to arrival. Patient is extremely tender in the epigastrium and right upper quadrant. Primary concern for bile leak versus infection postoperatively. Patient initially medicated with IV fluids and Zosyn. He was given analgesics and antiemetics as well. LFTs elevated as well as bilirubin. Imaging concerning for infiltrative change of the gallbladder fossa region and right flank, and right anterior abdomen, findings concerning for early inflammatory process. I did discuss the case with the general surgeon on-call who did agree to see and evaluate the patient. The patient will ultimately be admitted under the general surgery service for ongoing work-up and care. Please see inpatient dictation regarding ongoing management care of this patient. The chart was completed utilizing [employer] voice recognition software. Grammatical errors, random word insertions, pronoun errors, and incomplete sentences are an occasional consequence of this system due to software limitations, ambient noise, and hardware issues. Any formal questions or concerns about the content, text, or information contained within the body of this dictation should be directly addressed to the provider for clarification. Impression & Plan Postoperative right upper quadrant abdominal pain, Postoperative bile leak, Nausea & vomiting, Tachycardia Discharge Plan Visit Data *Final* Discharge Date/Time: 09/28/19 11:14 Chief Complaint: Vomiting Stated Complaint: VOMITING,DRY MOUTH, PAIN - GALLBLADDER REMOVED ED Provider: Pop Rushing ED Midlevel Provider: Allison Chang Discharge Problem: Postoperative right upper quadrant abdominal pain, Postoperative bile leak, Nausea & vomiting, Tachycardia Patient Disposition: Admitted As Inpatient Discharge Instructions Interventions: ED Discharge Assessment Last Done: 09/28/19 11:14 Discharge Problem: Nausea & vomiting Qualifiers: Vomiting type: unspecified Vomiting Intractability: non-intractable Qualified Code(s): R11.2 - Nausea with vomiting, unspecified
[2019-09-28 08:36] LABS: Basophils # (auto) 0.01 K/uL (0-0.2); Basophils % (auto) 0.1 %; Eosinophils # (auto) 0.01 K/uL (0-0.5); Eosinophils % (auto) 0.1 %; Hemoglobin 13.3 g/dL (14.0-18.0); Immature Granulocytes # (auto) 0.02 K/uL (0.00-0.02); Immature Granulocytes % (auto) 0.2 %; Lymphocytes # (auto) 0.28 K/uL (1.2-3.4); Lymphocytes % (auto) 3.4 %; Mean Corpuscular Hemoglobin 31.1 pg (25-34); Mean Corpuscular Hgb Conc 34.1 g/dL (32-36); Mean Corpuscular Volume 91.1 fL (80-100); Mean Platelet Volume 9.9 fL (7.4-10.4); Monocytes # (auto) 0.69 K/uL (0.11-0.59); Monocytes % (auto) 8.3 %; Neutrophils # (auto) 7.29 K/uL (1.4-6.5); Neutrophils % (auto) 87.9 %; Platelet Count 228 K/uL (130-400); RDW Coefficient of Variation 13.5 % (11.5-14.5); RDW Standard Deviation 44.9 fL (36.4-46.3); Red Blood Count 4.28 M/uL (4.7-6.1)
[2019-09-28] MEDS ORDERED: IOVERSOL 100ml IV PRN (08:48)
[2019-09-28 08:51] LABS: Partial Thromboplastin Ratio 0.9; Partial Thromboplastin Time 25.1 Seconds (21.0-31.0); Prothrombin Time 10.8 Seconds (9.0-12.0)
[2019-09-28 08:53] LABS: Alanine Aminotransferase 791 U/L (12-78); Albumin Level 2.8 gm/dl (3.4-5.0); Aspartate Aminotransferase 733 U/L (15-37); BUN Creatinine Ratio 15.1 (10-20); Blood Urea Nitrogen 22 mg/dl (7-18); Calcium 9.6 mg/dl (8.5-10.1); Carbon Dioxide 25 mmol/L (21-32); Chloride 106 mmol/L (98-107); Creatinine Clr Calc Pharmacy 52.8 ml/min; Est GFR (Non-African American) 48.3; Glucose 121 mg/dl (70-99); Magnesium 1.9 mg/dl (1.8-2.4); Potassium 3.9 mmol/L (3.5-5.1); Sodium 136 mmol/L (136-145)
[2019-09-28 08:53] LABS: iSTAT Creatinine 1.5 mg/dl (0.6-1.3); iSTAT Hemoglobin 12.9 g/dl (14.0-18.0); iSTAT Ionized Calcium 1.25 mmol/l (1.12-1.32); iSTAT Potassium 3.9 mmol/L (3.3-5.0)
[2019-09-28 09:02] LABS: Albumin Globulin Ratio 0.7 (0.9-2); Alkaline Phosphatase 309 U/L (45-117); Bilirubin,Total 3.6 mg/dl (0.2-1); Globulin 4.2 gm/dl (2.5-4.0); Troponin I < 0.015 ng/ml (0-0.045)
--- NOTE | 2019-09-28 09:14 | CT Scan Report ---
CT abd pelvis IV con only CT DOSE: 647.27 mGy.cm HISTORY: Pain epigastric pain, 3 days s/p cholecystectomy TECHNIQUE: Multiaxial CT images of the abdomen and pelvis were performed following the use of intrave nous contrast. A dose lowering technique was utilized adhering to the principles of ALARA. COMPARISON STUDY: 09/25/2019 FINDINGS: Lung bases show slightly progressive bilateral parenchymal infiltrative change. Subsegmenta l atelectasis is also present. The amount of fluid within the distal esophagus consistent with a component of gastroesophageal reflu x. Interval cholecystectomy. Mild fatty replacement of the liver. Spleen and pancreas appear unremarkabl e. There are findings of nonspecific infiltrative changes within the gallbladder fossa region as well as in the right paracolic gutter and right flank. No evidence for drainable abscess or collection. The adrenal glands are normal. Kidneys negative for hydronephrosis. Nonobstructing renal nephrocalcin osis is again noted. The bowel pattern overall is considered nonobstructive. There is a 3 cm cystic density anterior abdominal wall region felt to be secondary to a duplication c yst. This is unchanged. There are findings of chronic sigmoid diverticulosis. There is no evidence fo r diverticulitis. There is a fat-containing left inguinal hernia which is unchanged. Bladder is midline. IMPRESSION: 1. Interval cholecystectomy. 2. Infiltrative change of the gallbladder fossa region, right flank, as well as right anterior abdomi nal region. 3. The bulk of these findings appear to relate to simple postoperative change, although this patient should be monitored clinically to exclude any possibility of an early inflammatory process. 4. Mildly progressive bibasilar parenchymal infiltrates. 5. Scattered colonic diverticulosis with no evidence for acute diverticulitis. ACT 112: Negative or not required by law. The above report was generated using voice recognition software. It may contain grammatical, syntax or spelling errors. Electronically signed by: Jesus Ramirez M.D. 09/28/2019 9:12 AM
--- NOTE | 2019-09-28 09:25 | XRay Report ---
XR chest 1V portable CLINICAL HISTORY: SEPSIS dyspnea COMPARISON STUDY: 05/28/2018 FINDINGS: Small bibasilar parenchymal infiltrative/atelectatic change. Mid and upper lungs are clear. Diaphragms are smooth. IMPRESSION: Bibasilar parenchymal infiltrates combined with mild atelectatic change. ACT 112: Negative or not required by law. The above report was generated using voice recognition software. It may contain grammatical, syntax or spelling errors. Electronically signed by: Jesus Ramirez M.D. 09/28/2019 9:24 AM
--- NOTE | 2019-09-28 10:52 | Surgery Consultation ---
Date of Consultation September 28, 2019 Assessment & Plan (1) Postoperative right upper quadrant abdominal pain: pt is a 69 year-old male who is pOD 3 laparoscopic cholecystectomy, return to Er with abdominal pain nausea and vomiting. LFT's abnormal, IMP: S/P laparoscopic cholecystectomy, abdominal pain, biliary leak, Plan, admit to hospital, IV fluid, NPO, control pain, antibiotic, MRCP, consult GI for ERCP, consult hospitalist for co-manage, pt and his daughter agree with the plan, I answered all questions, repeat labs in am History of Present Illness History of Present Illness History of Present Illness General Chief Complaint: Vomiting Stated Complaint: VOMITING,DRY MOUTH, PAIN - GALLBLADDER REMOVED Time Seen by Provider: 09/28/19 07:51 Source: patient Mode of arrival: ambulatory Limitations: no limitations History of Present Illness Provider Complaint: abdominal pain and other (nausea/vomiting) Onset (ago): 1 day(s) Pain Consistency: constant Location: epigastric Radiation: none Migration to: no migration Severity: severe Maximum Pain Intensity: 9 Current Pain Intensity: 9 Quality: + fullness and + sharp Relieved By: + nothing Exacerbated By: + eating and + movement Context: + recent surgery/procedure (Cholecystectomy 09/25/2019) Associated Symptoms: + nausea, + vomiting and + chills Treatments prior to arrival: prescription analgesics This 69-year-old male patient with significant past medical history of prostate cancer, hypertension, hyperlipidemia, and GERD, who is 3 days status post laparoscopic cholecystectomy presents to the emergency department, ambulatory, accompanied by his daughter with complaints of epigastric pain which began yesterday and radiates down toward the lower abdomen. The patient states the procedure was done night. He was discharged Sunday and was doing well Sunday and into Sunday when his symptoms began. The patient states he has been experiencing chills, increased epigastric abdominal pain, nausea, and vomiting. He reports a decreased appetite for the past few days and has not been eating well. He has been taking Percocet without improvement of his symptoms, most recent dose was 2 tablets at 6 AM. The patient denies any associated diarrhea or constipation. He is passing gas. He denies any chest pain or dyspnea. He does feel bloated. He denies any pain into his back or shoulder. He does report one episode of hematuria Sunday evening, but states this is not always unusual for him, as he has a history of kidney stones. He states the hematuria seems to have resolved. Patient denies any cough, dyspnea, weakness, headache, dizziness, numbness, tingling, or other associated symptoms. I ( Belen Pryor MD) reviewed pt's H/P, labs, CT scan with pt and his daughter. pt is still have some RUQ pain, Home Medications Home Medications Medication Instructions Recorded Confirmed Type albuterol sulfate 90 mcg/actuation 1 puffs INH Q6H PRN 06/18/18 09/28/19 History aerosol inhaler ibuprofen 400 mg PO Q6H PRN 08/25/19 09/28/19 History atorvastatin [Lipitor] 40 mg PO QAM 09/25/19 09/28/19 History fenofibrate nanocrystallized 48 mg PO QAM 09/25/19 09/28/19 History [Tricor] lidocaine [Lidoderm] 1 patch TOP DAILY PRN 09/25/19 09/28/19 History losartan [Cozaar] 100 mg PO QAM 09/25/19 09/28/19 History pantoprazole [Protonix] 40 mg PO QAM 09/25/19 09/28/19 History potassium citrate [Urocit-K 10] 10 meq PO BID 09/25/19 09/28/19 History oxycodone-acetaminophen [Percocet] 1 - 2 tab PO Q4H PRN #15 tab 09/26/19 09/28/19 Rx Allergies Allergy/AdvReac Type Severity Reaction Status Date / Time No Known Allergies Allergy Unknown Verified 09/28/19 08:30 Past Med/Surg History Medical History Acute blood loss anemia (Resolved) Adenocarcinoma of prostate Aneurysm artery, iliac common Arthritis Asthma Dyslipidemia GERD (gastroesophageal reflux disease) Hypertension Kidney stone (Resolved 09/15/12) Lumbar disc disease Lumbar radiculopathy Lumbar spinal stenosis Lung nodule stable October 2017; no f/u recommended. Nephrolithiasis Paroxysmal ventricular tachycardia USED TO F/U WITH [facility]-DISCHAR[facility]ED 2 YRS AGO-NOW F/U PCP Prediabetes Premature ventricular contractions Prostate cancer (Resolved) Pulmonary emphysema Urge incontinence of urine Surgical History H/O lithotripsy X MULTIPLE H/O right inguinal hernia repair History of total right knee replacement Hx of umbilical hernia repair Prostatectomy (09/15/12) S/P carpal tunnel release R/L S/P laparoscopic cholecystectomy (09/25/19) Laparoscopic cholecystectomy 09/25/19 Dr. Martinez S/P left inguinal hernia repair S/P orchiopexy Social History Preferred Language: Moldovan Communication Ability: Effective Substation Design Draftsperson Required: No Beliefs That Will Affect Care: None marital status: Current Living Situation: Spouse current occupational status: retired Feels Safe at Home: Yes Smoking Status: Former smoker Second Hand Exposure: No ; Hx Alcohol Use: No Hx Substance Use: No Physical Activity Frequency: Daily Seatbelt Use: never Sunscreen Use: No Review of Systems A total of 10 systems reviewed and were otherwise negative Allergies Allergy/AdvReac Type Severity Reaction Status Date / Time No Known Allergies Allergy Unknown Verified 09/28/19 08:30 Home Medications Home Medications Medication Instructions Recorded Confirmed Type albuterol sulfate 90 mcg/actuation 1 puffs INH Q6H PRN 06/18/18 09/28/19 History aerosol inhaler ibuprofen 400 mg PO Q6H PRN 08/25/19 09/28/19 History atorvastatin [Lipitor] 40 mg PO QAM 09/25/19 09/28/19 History fenofibrate nanocrystallized 48 mg PO QAM 09/25/19 09/28/19 History [Tricor] lidocaine [Lidoderm] 1 patch TOP DAILY PRN 09/25/19 09/28/19 History losartan [Cozaar] 100 mg PO QAM 09/25/19 09/28/19 History pantoprazole [Protonix] 40 mg PO QAM 09/25/19 09/28/19 History potassium citrate [Urocit-K 10] 10 meq PO BID 09/25/19 09/28/19 History oxycodone-acetaminophen [Percocet] 1 - 2 tab PO Q4H PRN #15 tab 09/26/19 09/28/19 Rx Patient History Medical History Acute blood loss anemia (Resolved) Adenocarcinoma of prostate Aneurysm artery, iliac common Arthritis Asthma Dyslipidemia GERD (gastroesophageal reflux disease) Hypertension Kidney stone (Resolved 09/15/12) Lumbar disc disease Lumbar radiculopathy Lumbar spinal stenosis Lung nodule stable October 2017; no f/u recommended. Nephrolithiasis Paroxysmal ventricular tachycardia USED TO F/U WITH [facility]-DISCHAR[facility]ED 2 YRS AGO-NOW F/U PCP Prediabetes Premature ventricular contractions Prostate cancer (Resolved) Pulmonary emphysema Urge incontinence of urine Surgical History H/O lithotripsy X MULTIPLE H/O right inguinal hernia repair History of total right knee replacement Hx of umbilical hernia repair Prostatectomy (09/15/12) S/P carpal tunnel release R/L S/P laparoscopic cholecystectomy (09/25/19) Laparoscopic cholecystectomy 09/25/19 Dr. Martinez S/P left inguinal hernia repair S/P orchiopexy Social History Preferred Language: Moldovan Communication Ability: Effective Substation Design Draftsperson Required: No Beliefs That Will Affect Care: None marital status: Current Living Situation: Spouse current occupational status: retired Feels Safe at Home: Yes Smoking Status: Former smoker Second Hand Exposure: No ; Hx Alcohol Use: No Hx Substance Use: No Physical Activity Frequency: Daily Seatbelt Use: never Sunscreen Use: No Review of Systems Review of Systems: All systems reviewed & are unremarkable except as noted in HPI & below Constitutional: as per Subjective / HPI Eyes: as per Subjective / HPI Ear, Nose, Mouth, Throat: as per Subjective / HPI Respiratory: as per Subjective / HPI pulmonary emphysema Cardiovascular: Additional Comments: iliac aneurysm, dyslipidemia Gastrointestinal: as per Subjective / HPI Genitourinary: + as per Subjective / HPI and + problem reported (prostate cancer 8 years ago, ) Musculoskeletal: as per Subjective / HPI Integumentary: as per Subjective / HPI Neurologic: as per Subjective / HPI Psychiatric: as per Subjective / HPI Endocrine: as per Subjective / HPI Hematologic / Lymphatic: as per Subjective / HPI Physical Exam Constitutional: WD/WN, vitals as above well developed and well nourished Eyes: PERRL, conjunctivae normal, anicteric sclerae ENMT: external ear and nose normal, oropharynx normal Neck: trachea midline, no thyromegaly Respiratory: normal respiratory effort, lungs clear to auscultation normal respiratory effort Cardiovascular: RRR, no murmur, no edema Rate/Rhythm: regular rate and regular rhythm Heart Sounds: normal S1 and normal S2 Gastrointestinal (Abdomen): normal bowel sounds, soft, nontender, no hepatosplenomegaly Percussion/Palpation: + abdomen tender and abdomen soft some tenderness at RUQ, no rebound pain, BS +, no distend, all incisions heal well, no redness, no drainage Musculoskeletal: no cyanosis or clubbing, extremities motor strength 5/5 Skin: no rashes, warm and dry Neurologic: patellar DTR's 2+ bilat, sensation intact Psychiatric: Orientation: alert and oriented x 3 Results & Data Vital Signs (Past 12 Hours) Vital Signs Temp Pulse Pulse Resp BP BP Pulse Ox 09/28/19 09:39 85 18 122/73 94 09/28/19 08:41 91 09/28/19 08:04 91 09/28/19 07:47 37.5 C 106 H 24 118/83 91 Laboratory Results Abnormal lab results 09/28/19 09/28/19 09/28/19 Range/Units 08:20 08:20 08:20 RBC 4.28 L (4.7-6.1) M/uL Hgb 13.3 L (14.0-18.0) g/dL POC Hgb (14.0-18.0) g/dl Hct 39.0 L (42-52) % POC Hct (42-52) % Neut # (Auto) 7.29 H (1.4-6.5) K/uL Lymph # (Auto) 0.28 L (1.2-3.4) K/uL [place] # (Auto) 0.69 H (0.11-0.59) K/uL POC Total CO2 (24-31) mEq/l POC BUN (7-18) mg/dl BUN 22 H (7-18) mg/dl Creatinine 1.47 H (0.6-1.4) mg/dl POC Creatinine (0.6-1.3) mg/dl Glucose 121 H (70-99) mg/dl POC Glucose (other) (70-99) mg/dl Total Bilirubin 3.6 H (0.2-1) mg/dl Direct Bilirubin 2.7 H (0-0.2) mg/dl AST 733 H (15-37) U/L ALT 791 H (12-78) U/L Alkaline Phosphatase 309 H (45-117) U/L Albumin 2.8 L (3.4-5.0) gm/dl Globulin 4.2 H (2.5-4.0) gm/dl Albumin/Globulin Ratio 0.7 L (0.9-2) Lipase (73-393) U/L 09/28/19 09/28/19 Range/Units 08:20 08:28 RBC (4.7-6.1) M/uL Hgb (14.0-18.0) g/dL POC Hgb 12.9 L (14.0-18.0) g/dl Hct (42-52) % POC Hct 38 L (42-52) % Neut # (Auto) (1.4-6.5) K/uL Lymph # (Auto) (1.2-3.4) K/uL [place] # (Auto) (0.11-0.59) K/uL POC Total CO2 22 L (24-31) mEq/l POC BUN 21 H (7-18) mg/dl BUN (7-18) mg/dl Creatinine (0.6-1.4) mg/dl POC Creatinine 1.5 H (0.6-1.3) mg/dl Glucose (70-99) mg/dl POC Glucose (other) 124 H (70-99) mg/dl Total Bilirubin (0.2-1) mg/dl Direct Bilirubin (0-0.2) mg/dl AST (15-37) U/L ALT (12-78) U/L Alkaline Phosphatase (45-117) U/L Albumin (3.4-5.0) gm/dl Globulin (2.5-4.0) gm/dl Albumin/Globulin Ratio (0.9-2) Lipase 3448 H (73-393) U/L Diagnostic Findings CT abd pelvis IV con only CT DOSE: 647.27 mGy.cm HISTORY: Pain epigastric pain, 3 days s/p cholecystectomy TECHNIQUE: Multiaxial CT images of the abdomen and pelvis were performed following the use of intravenous contrast. A dose lowering technique was utilized adhering to the principles of ALARA. COMPARISON STUDY: 09/25/2019 FINDINGS: Lung bases show slightly progressive bilateral parenchymal infiltrative change. Subsegmental atelectasis is also present. The amount of fluid within the distal esophagus consistent with a component of gastroesophageal reflux. Interval cholecystectomy. Mild fatty replacement of the liver. Spleen and pancreas appear unremarkable. There are findings of nonspecific infiltrative changes within the gallbladder fossa region as well as in the right paracolic gutter and right flank. No evidence for drainable abscess or collection. The adrenal glands are normal. Kidneys negative for hydronephrosis. Nonobstructing renal nephrocalcinosis is again noted. The bowel pattern overall is considered nonobstructive. 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 This is unchanged. There are findings of chronic sigmoid diverticulosis. There is no evidence for diverticulitis. There is a fat-containing left inguinal hernia which is unchanged. Bladder is midline. IMPRESSION: 1. Interval cholecystectomy. 2. Infiltrative change of the gallbladder fossa region, right flank, as well as right anterior abdominal region. 3. The bulk of these findings appear to relate to simple postoperative change, although this patient should be monitored clinically to exclude any possibility of an early inflammatory process. 4. Mildly progressive bibasilar parenchymal infiltrates. 5. Scattered colonic diverticulosis with no evidence for acute diverticulitis.
--- NOTE | 2019-09-28 10:57 | Electrocardiogram Report ---
Test Reason : Blood Pressure : / mmHG Vent. Rate : 090 BPM Atrial Rate : 090 BPM P-R Int : 146 ms QRS Dur : 086 ms QT Int : 342 ms P-R-T Axes : 015 -03 005 degrees QTc Int : 418 ms Normal sinus rhythm with sinus arrhythmia Normal ECG When compared with ECG of 25-SEP-2019 15:58, No significant change was found Confirmed by Pop Saini ([id number]) on 09/28/2019 10:57:20 AM Referred By: Confirmed By:Pop Saini
[2019-09-28] MEDS ORDERED: IBUPROFEN 200 MG TAB PO PRN (11:40)
[2019-09-28] MEDS ORDERED: OXYCODONE/ACETAMINOPHEN 5mg/325mg TAB PO PRN (11:40)
[2019-09-28] MEDS ORDERED: ALBUTEROL HFA 8 GM INHALER INH PRN (11:40)
[2019-09-28] MEDS ORDERED: LIDOCAINE 5% 1 PATCH TD PRN (11:40)
[2019-09-28 12:20] LABS: Appearance Urine Clear (Clear); Bacteria Urine Automated Negative (Negative); Blood Urine Negative (Negative); Color Urine Dark Yellow; Epithelial Cell Urine Auto 0-5 /lpf (0-5); Glucose Urine UA Negative (Negative); Ketones Urine Negative (Negative); Leukocyte Esterase Urine Negative (Negative); Nitrite Urine Negative (Negative); Protein Urine 1+ (Negative); RBC Urine Automated 0-4 /hpf (0-4); Specific Gravity Urine > 1.045 (1.000-1.030); Urobilinogen Urine Positive (Negative); pH Urine 5.5 (4.5-7.5)
[2019-09-28 12:41] LABS: Bilirubin Urine 2+ (Negative); Ictotest Urine Positive (Negative)
[2019-09-28] MEDS: D5W AND 1/2NSS + 20MEQ KCL 20 MEQ/1,000 ML BAG IV SCH ×2 (13:11→23:24)
[2019-09-28] MEDS ORDERED: fentaNYL citrate 100 MCG/2 ML VIAL ONE (13:49)
[2019-09-28] MEDS ORDERED: MIDAZOLAM HCL 1 MG/ML 2ML VIAL ONE (13:49)
[2019-09-28] MEDS ORDERED: PROPOFOL IV EMULSION 10 MG/ML 20 ML VIAL IV ONE (13:49)
[2019-09-28] MEDS ORDERED: ONDANSETRON INJ 2 MG/ML 2 ML VIAL ONE (13:50)
[2019-09-28] MEDS ORDERED: SUCCINYLCHOLINE CHLORIDE 20 MG/ML 10 ML VIAL ONE (13:50)
--- NOTE | 2019-09-28 13:52 | Gastrointestinal Consultation ---
Date of Consultation September 28, 2019 Assessment & Plan (1) Postoperative right upper quadrant abdominal pain: Retained CBD stone Vs. Bile leak. Plan for urgent ERCP in view of LUIS ALBERTO and chills, suspected cholangitis. Patient agreed and consented. (2) Abnormal LFTs: History of Present Illness Attending Physician: Belen Pryor MD 69 years old male patient with medical comorbids of HTN, DLP, GERD, had Cholecystectomy few days ago and presented with chills and constant RUQ abdominal pain, sharp, nonradiating, worsening, found with elevated liver enzymes and bilirubin, CT scan showed post changes changes. He denies any nausea or vomiting. GI consulted for ERCP. Allergies Allergy/AdvReac Type Severity Reaction Status Date / Time No Known Allergies Allergy Unknown Verified 09/28/19 08:30 Home Medications Home Medications Medication Instructions Recorded Confirmed Type albuterol sulfate 90 mcg/actuation 1 puffs INH Q6H PRN 06/18/18 09/28/19 History aerosol inhaler ibuprofen 400 mg PO Q6H PRN 08/25/19 09/28/19 History atorvastatin [Lipitor] 40 mg PO QAM 09/25/19 09/28/19 History fenofibrate nanocrystallized 48 mg PO QAM 09/25/19 09/28/19 History [Tricor] lidocaine [Lidoderm] 1 patch TOP DAILY PRN 09/25/19 09/28/19 History losartan [Cozaar] 100 mg PO QAM 09/25/19 09/28/19 History pantoprazole [Protonix] 40 mg PO QAM 09/25/19 09/28/19 History potassium citrate [Urocit-K 10] 10 meq PO BID 09/25/19 09/28/19 History oxycodone-acetaminophen [Percocet] 1 - 2 tab PO Q4H PRN #15 tab 09/26/19 09/28/19 Rx Patient History Medical History Acute blood loss anemia (Resolved) Adenocarcinoma of prostate Aneurysm artery, iliac common Arthritis Asthma Dyslipidemia GERD (gastroesophageal reflux disease) Hypertension Kidney stone (Resolved 09/15/12) Lumbar disc disease Lumbar radiculopathy Lumbar spinal stenosis Lung nodule stable October 2017; no f/u recommended. Nephrolithiasis Paroxysmal ventricular tachycardia USED TO F/U WITH [facility]-DISCHARGED 2 YRS AGO-NOW F/U PCP Prediabetes Premature ventricular contractions Prostate cancer (Resolved) Pulmonary emphysema Urge incontinence of urine Surgical History H/O lithotripsy X MULTIPLE H/O right inguinal hernia repair History of total right knee replacement Hx of umbilical hernia repair Prostatectomy (09/15/12) S/P carpal tunnel release R/L S/P laparoscopic cholecystectomy (09/25/19) Laparoscopic cholecystectomy 09/25/19 Dr. Martinez S/P left inguinal hernia repair S/P orchiopexy Social History Preferred Language: Arabic Communication Ability: Effective Speeder Hand Required: No Beliefs That Will Affect Care: None marital status: Current Living Situation: Spouse current occupational status: retired Feels Safe at Home: Yes Safety Concerns: Feels Safe At This Time Smoking Status: Former smoker Second Hand Exposure: No ; Hx Alcohol Use: No Hx Substance Use: No Physical Activity Frequency: Daily Seatbelt Use: never Sunscreen Use: No Review of Systems Constitutional: no fever, no chills, no fatigue and no weight loss Eyes: no eye pain and no worsening vision Ear, Nose, Mouth, Throat: no tinnitus, no dizziness, no nasal discharge and no epistaxis Respiratory: no cough, no dyspnea, no dyspnea on exertion and no wheezing Cardiovascular: no chest pain, no orthopnea, no palpitations and no edema Gastrointestinal: as per Subjective / HPI Musculoskeletal: no stiffness and no myalgia Neurologic: no localized weakness, no paralysis, no tremor(s) and no headache(s) Endocrine: no polydipsia and no polyuria Hematologic / Lymphatic: no easy bleeding and no night sweats Physical Exam Constitutional: + well hydrated, cooperative and comfortable Eyes: PERRL, conjunctivae normal, anicteric sclerae ENMT: external ear and nose normal, oropharynx normal Neck: normal visual inspection and trachea midline Respiratory: normal respiratory effort, lungs clear to auscultation Auscultation: no wheezes Cardiovascular: RRR, no murmur, no edema Gastrointestinal (Abdomen): normal bowel sounds, soft, nontender, no hepatosplenomegaly Musculoskeletal: no cyanosis or clubbing, extremities motor strength 5/5 Skin: no rashes, warm and dry Neurologic: awake; no focal motor deficits Motor/Sensory: no tremor Results & Data ([facility]) Vital Signs (Past 12 Hours) Vital Signs Temp Pulse Pulse Pulse Resp BP BP 09/28/19 11:39 36.7 C 91 H 20 149/76 H 09/28/19 11:00 77 18 114/69 09/28/19 09:39 85 18 122/73 09/28/19 08:41 09/28/19 08:04 09/28/19 07:47 37.5 C 106 H 24 118/83 Pulse Ox 09/28/19 11:39 93 09/28/19 11:00 94 09/28/19 09:39 94 09/28/19 08:41 91 09/28/19 08:04 91 09/28/19 07:47 91
[2019-09-28] MEDS: PIPERACILLIN/TAZOBACTAM 3.375 GM in DEXTROSE 5% 100 ML IV SCH ×2 (13:58→22:01)
[2019-09-28] MEDS ORDERED: ONDANSETRON INJ 2 MG/ML 2 ML VIAL IV PRN (14:07)
[2019-09-28] MEDS ORDERED: ePHEDrine sulfate 50 MG/ML AMP IV PRN (14:07)
[2019-09-28] MEDS ORDERED: HYDROmorphone INJ 1 MG/ML SYRINGE IV PRN (14:07)
[2019-09-28] MEDS ORDERED: ATROPINE SULFATE 0.1 MG/ML 10ML SYR IV PRN (14:07)
[2019-09-28] MEDS ORDERED: fentaNYL citrate 100 MCG/2 ML VIAL IV PRN (14:07)
--- NOTE | 2019-09-28 14:09 | Anesthesiology Consultation ---
Date of Service September 28, 2019 Assessment & Plan (1) Encounter for pre-operative examination: Chart Review Chart Review: Acceptable Risk for Surgery and Patient NOT seen in Pre Admission Testing Consults Requested none History Surgery Operation Date: 09/28/19 13:00 Proposed Procedures p Endoscopic Retrograde Cholangiopancreatography - Samira Gaona MD Height/Weight Height: 5 ft 7 in Weight: 95 kg Allergies Allergy/AdvReac Type Severity Reaction Status Date / Time No Known Allergies Allergy Unknown Verified 09/28/19 08:30 Medications Home Medications Medication Instructions Recorded Confirmed Last Taken albuterol sulfate 90 mcg/actuation 1 puffs INH Q6H PRN 06/18/18 09/28/19 09/27/19 aerosol inhaler ibuprofen 400 mg PO Q6H PRN 08/25/19 09/28/19 09/27/19 atorvastatin [Lipitor] 40 mg PO QAM 09/25/19 09/28/19 09/27/19 fenofibrate nanocrystallized 48 mg PO QAM 09/25/19 09/28/19 09/27/19 [Tricor] lidocaine [Lidoderm] 1 patch TOP DAILY PRN 09/25/19 09/28/19 09/27/19 losartan [Cozaar] 100 mg PO QAM 09/25/19 09/28/19 09/27/19 pantoprazole [Protonix] 40 mg PO QAM 09/25/19 09/28/19 09/27/19 potassium citrate [Urocit-K 10] 10 meq PO BID 09/25/19 09/28/19 09/27/19 oxycodone-acetaminophen [Percocet] 1 - 2 tab PO Q4H PRN #15 tab 09/26/19 09/28/19 09/27/19 Active Medications Generic Name Dose Route Start Last Admin Trade Name Freq PRN Reason Stop Dose Admin Potassium Chloride/Dextrose/Sod Cl 20 meq in 1,000 mls @ 100 mls/hr 09/28/19 12:30 09/28/19 13:11 D5w And 1/2nss + 20meq Kcl IV 10/28/19 12:29 100 mls/hr .Q10H [place] Administration Piperacillin Sod/Tazobactam 115 mls @ 28.75 mls/hr 09/28/19 14:00 09/28/19 13:58 Sod 3.375 gm/ Dextrose IV 10/08/19 13:59 28.8 mls/hr Q8H [place] Administration Protocol Ioversol 93 ml 09/28/19 08:48 09/28/19 08:48 Optiray 320 100ml IV 10/02/19 08:47 93 ml ONCE PRN Administration Interaction Checking Past Medical History Medical History Acute blood loss anemia (Resolved) Adenocarcinoma of prostate Aneurysm artery, iliac common Arthritis Asthma Dyslipidemia GERD (gastroesophageal reflux disease) Hypertension Kidney stone (Resolved 09/15/12) Lumbar disc disease Lumbar radiculopathy Lumbar spinal stenosis Lung nodule stable October 2017; no f/u recommended. Nephrolithiasis Paroxysmal ventricular tachycardia USED TO F/U WITH [facility]-DISCHARGED 2 YRS AGO-NOW F/U PCP Prediabetes Premature ventricular contractions Prostate cancer (Resolved) Pulmonary emphysema Urge incontinence of urine Exercise / Class Metabolic Activity III < 4 Walking/Shop/Light housework Past Family History Family History Brother Bladder cancer Myocardial infarction Hypertension Father Myocardial infarction Coronary heart disease Hypertension Mother Hypertension Sister Thyroid cancer Other Heart disease Past Surgical History Surgical History H/O lithotripsy X MULTIPLE H/O right inguinal hernia repair History of total right knee replacement Hx of umbilical hernia repair Prostatectomy (09/15/12) S/P carpal tunnel release R/L S/P laparoscopic cholecystectomy (09/25/19) Laparoscopic cholecystectomy 09/25/19 Dr. Martinez S/P left inguinal hernia repair S/P orchiopexy Past Anesthesia History No Hx of Anesthesia Complications and No Family Hx of Anesthesia Complications History of PONV No Hx of PONV and No Hx of Motion Sickness Social History Smoking Status: Former smoker Hx Alcohol Use: No Hx Substance Use: No substance use type: does not use Physical Exam Vital Signs Last Vital Signs Temp 36.7 C 09/28/19 11:39 Pulse 91 H 09/28/19 11:39 Resp 20 09/28/19 11:39 BP 149/76 H 09/28/19 11:39 Pulse Ox 93 09/28/19 11:39 Testing Laboratory Results 09/28/19 08:20 09/28/19 08:20 PT 10.8 Seconds (9.0-12.0) 09/28/19 08:20 INR 1.0 (0.9-1.1) 09/28/19 08:20 APTT 25.1 Seconds (21.0-31.0) 09/28/19 08:20 Urine Color Dark Yellow 09/28/19 12:00 Urine Appearance Clear (Clear) 09/28/19 12:00 Urine pH 5.5 (4.5-7.5) 09/28/19 12:00 Ur Specific [place] > 1.045 (1.000-1.030) H 09/28/19 12:00 Urine Protein 1+ (Negative) H 09/28/19 12:00 Urine Glucose (UA) Negative (Negative) 09/28/19 12:00 Urine Ketones Negative (Negative) 09/28/19 12:00 Urine Nitrite Negative (Negative) 09/28/19 12:00 Ur Leukocyte Esterase Negative (Negative) 09/28/19 12:00 Urine WBC (Auto) 1-5 /hpf (0-5) 09/28/19 12:00 Urine RBC (Auto) 0-4 /hpf (0-4) 09/28/19 12:00 U Hyaline Cast (Auto) 1-5 /lpf (0-5) 09/28/19 12:00 U Epithel Cells (Auto) 0-5 /lpf (0-5) 09/28/19 12:00 Urine Bacteria (Auto) Negative (Negative) 09/28/19 12:00 09/28/19 08:28 POC Glucose (other) 124 H Electrocardiogram Date: 09/25/19 Findings: + NSR @ (80)
[2019-09-28] MEDS ORDERED: INDOMETHACIN 50 MG SUPP PR ONE (15:21)
--- NOTE | 2019-09-28 15:32 | GI REPORT ---
Patient Name: Constantin Powell Procedure Date: 09/28/2019 1:37 PM Date of : 1950 Admit Type: Inpatient Age: 69 Gender: Male Attending MD: Samira Gaona MD Procedure: ERCP Providers: Samira Gaona MD Referring MD: Diane Joya Md, Will Martinez Do Indications: Suspected bile duct stone(s), Elevated liver enzymes Medicines: General Anesthesia Complications: No immediate complications. Estimated Blood Loss: Estimated blood loss: none. Procedure: Pre-Anesthesia Assessment: - Prior to the procedure, a History and Physical was performed, and patient medications, allergies and sensitivities were reviewed. The patient's tolerance of previous anesthesia was reviewed. - The risks and benefits of the procedure and the sedation options and risks were discussed with the patient. All questions were answered and informed consent was obtained. - Patient identification and proposed procedure were verified prior to the procedure by the physician and the nurse. The procedure was verified in the procedure room. - Pre-procedure physical examination revealed no contraindications to sedation. After obtaining informed consent, the scope was passed under direct vision. Throughout the procedure, the patient's blood pressure, pulse, and oxygen saturations were monitored continuously.The ERCP was accomplished without difficulty. The patient tolerated the procedure well. The Scope was introduced through the mouth, and advanced to the duodenum and used to inject contrast into the bile duct. Findings: A steam blocker film of the abdomen was obtained. Surgical clips, consistent with a previous cholecystectomy, were seen in the area of the right upper quadrant of the abdomen. The esophagus was successfully intubated under direct vision. The scope was advanced to a normal major papilla in the descending duodenum without detailed examination of the pharynx, larynx and associated structures, and upper GI tract. The upper GI tract was grossly normal. A 0.035 inch straight standard wire was passed into the biliary tree. The Fusion OMNI sphincterotome was passed over the guidewire and the bile duct was then deeply cannulated. Contrast was injected. I personally interpreted the bile duct images. Ductal flow of contrast was adequate. Image quality was adequate. Contrast extended to the main bile duct. Opacification of the main bile duct, cystic duct and left and right hepatic ducts and all intrahepatic branches was successful. The maximum diameter of the ducts was 7 mm. There was a low take off of the cystic duct from the distal CBD. Extravasation of contrast originating from the cystic duct was observed into the gallbladder fossa. Biliary sphincterotomy was made with a monofilament traction (standard) sphincterotome using ERBE electrocautery. There was no post-sphincterotomy bleeding. The biliary tree was swept with an 11.5 mm balloon starting at the bifurcation. Nothing was found. One 8 mm by 8 cm covered metal biliary stent was placed into the common bile duct. Bile flowed through the stent. The stent was in good position. Indomethacin 100 mg was given via suppository to decrease the risk of post-ERCP pancreatitis (PEP). PD was not cannulated. Impression: - A bile leak was found. - A biliary sphincterotomy was performed. One covered metal biliary stent was placed into the common bile duct. Recommendation: - [facility] care. - Avoid aspirin and nonsteroidal anti-inflammatory medicines for 5 days. - Clear liquid diet today, then advance as tolerated to resume regular diet. - Repeat ERCP in 2 months to remove stent. - Recall GI if needed. Samira Gaona MD 09/28/2019 3:32:11 PM This report has been signed electronically. Note Initiated On: 09/28/2019 1:37 PM Number of Addenda: 0 I attest to the content of the Intraoperative Record and orders documented therein, exceptions below {[id number]}
--- NOTE | 2019-09-28 15:44 | Fluoroscopy Report ---
[place] ERCP biliary ductal CLINICAL HISTORY: ERCP COMPARISON STUDY: CT 09/28/2019 FLUOROSCOPY TIME: 1 minute 26 seconds NUMBER OF FLUOROSCOPIC IMAGES: 13 FINDINGS: Images show retrograde cannulation of the common bile duct. This fall by contrast striation . There is a rather lengthy 60 duct remnant. There is evidence for extravasation at the site of a surgi jasmin clip in the proximal cystic duct region. Remainder of the biliary ductal system is unremarkable. Final image #12 suggest partial reflux to the pancreatic duct versus an additional leak. IMPRESSION: Bile duct leak from the cystic duct remnant. Additional leak versus partial pancreatic du ct filling/contrast within the duodenal sweep on the final image ACT 112: Negative or not required by law. The above report was generated using voice recognition software. It may contain grammatical, syntax or spelling errors. Electronically signed by: Jesus Ramirez M.D. 09/28/2019 3:43 PM
--- NOTE | 2019-09-28 16:07 | Anesthesiology Progress Note ---
Date of Service September 28, 2019 Anesthesia Post Procedure Vital Signs Vital Signs: Temp Pulse Pulse Pulse Resp BP BP 09/28/19 16:00 70 16 09/28/19 15:52 36.4 C L 77 16 09/28/19 11:39 36.7 C 91 H 20 149/76 H 09/28/19 11:00 77 18 114/69 09/28/19 09:39 85 18 122/73 09/28/19 08:41 09/28/19 08:04 09/28/19 07:47 37.5 C 106 H 24 118/83 BP Pulse Ox 09/28/19 16:00 131/81 95 09/28/19 15:52 148/85 H 95 09/28/19 11:39 93 09/28/19 11:00 94 09/28/19 09:39 94 09/28/19 08:41 91 09/28/19 08:04 91 09/28/19 07:47 91 Pain Intensity Medial Abdomen: Pain Intensity: 5 Transfer of Care Handoff Completed per policy Notes Mental Status: alert / awake / arousable and participated in evaluation Patient Amnestic to Procedure: Yes Nausea / Vomiting: adequately controlled Pain: adequately controlled Airway Patency, RR, SpO2: stable & adequate BP & HR: stable & adequate Hydration State: stable & adequate Anesthetic Complications: no major complications apparent and Pt Satisfied with anesthetic care
--- NOTE | 2019-09-28 16:49 | History & Physical Report ---
Date of Service September 28, 2019 Assessment & Plan (1) Postoperative bile leak: s/p lap hallie on 09/24 CTAP as noted Increased LFTs, repeat in AM ERCP noted for postop bile leak, stent placed GI recs for clears, ADAT, no NSAIDs/aspirin x5days, repeat ERCP in 2 months for stent removal (2) ARF (acute renal failure): Baseline cr is 1.3, noted as 1.4 on admission Monitor (3) GERD (gastroesophageal reflux disease): resume home meds as per gen surg (4) Dyslipidemia: resume home meds as per gen surg (5) Hypertension: resume home meds as per gen surg (6) Prediabetes: No current meds, monitor A1c 5.8 on 03/28/19, repeat given slightly elevated FBS on admission Monitor BS (7) DVT prophylaxis: As per gen surg Admission and Anticipated Discharge Date Admission Date: September 28, 2019 History of Present Illness Chief Complaint: 69 y/o M who was admitted on 09/27 s/p lap hallie on 09/[address] Diane Martinez. Pt had been having RUQ abd pain, n/v since yesterday. He was taken for ERCP with GI and is feeling much improved. He has no further abd pain, n/v since the procedure. States last emesis was around 6a today. He is hungry, but has not been brought a tray of clears yet. Pt denies fever, SOB, chest pain, c/d, LE swelling or pain. Primary Care Provider: Mary Gordon DO Allergies Allergy/AdvReac Type Severity Reaction Status Date / Time No Known Allergies Allergy Unknown Verified 09/28/19 08:30 Home Medications Home Medications Medication Instructions Recorded Confirmed Type albuterol sulfate 90 mcg/actuation 1 puffs INH Q6H PRN 06/18/18 09/28/19 History aerosol inhaler ibuprofen 400 mg PO Q6H PRN 08/25/19 09/28/19 History atorvastatin [Lipitor] 40 mg PO QAM 09/25/19 09/28/19 History fenofibrate nanocrystallized 48 mg PO QAM 09/25/19 09/28/19 History [Tricor] lidocaine [Lidoderm] 1 patch TOP DAILY PRN 09/25/19 09/28/19 History losartan [Cozaar] 100 mg PO QAM 09/25/19 09/28/19 History pantoprazole [Protonix] 40 mg PO QAM 09/25/19 09/28/19 History potassium citrate [Urocit-K 10] 10 meq PO BID 09/25/19 09/28/19 History oxycodone-acetaminophen [Percocet] 1 - 2 tab PO Q4H PRN #15 tab 09/26/19 09/28/19 Rx Past Med/Surg History Medical History Acute blood loss anemia (Resolved) Adenocarcinoma of prostate Aneurysm artery, iliac common Arthritis Asthma Dyslipidemia GERD (gastroesophageal reflux disease) Hypertension Kidney stone (Resolved 09/15/12) Lumbar disc disease Lumbar radiculopathy Lumbar spinal stenosis Lung nodule stable October 2017; no f/u recommended. Nephrolithiasis Paroxysmal ventricular tachycardia USED TO F/U WITH [facility]-DISCHARGED 2 YRS AGO-NOW F/U PCP Prediabetes Premature ventricular contractions Prostate cancer (Resolved) Pulmonary emphysema Urge incontinence of urine Surgical History H/O lithotripsy X MULTIPLE H/O right inguinal hernia repair History of total right knee replacement Hx of umbilical hernia repair Prostatectomy (09/15/12) S/P carpal tunnel release R/L S/P laparoscopic cholecystectomy (09/25/19) Laparoscopic cholecystectomy 09/25/19 Dr. Martinez S/P left inguinal hernia repair S/P orchiopexy Family History Brother Bladder cancer Myocardial infarction Hypertension Father Myocardial infarction Coronary heart disease Hypertension Mother Hypertension Sister Thyroid cancer Other Heart disease Social History Preferred Language: Greenlandic Communication Ability: Effective Global Account Executive Required: No Beliefs That Will Affect Care: None marital status: Current Living Situation: Spouse current occupational status: retired Feels Safe at Home: Yes Safety Concerns: Feels Safe At This Time Smoking Status: Former smoker Second Hand Exposure: No ; Hx Alcohol Use: No Hx Substance Use: No Physical Activity Frequency: Daily Seatbelt Use: never Sunscreen Use: No Review of Systems Review of Systems: Pertinent positives and negatives reviewed in HPI--all others negative Physical Exam Constitutional: WD/WN, vitals as above Eyes: normal visual kumari by confrontation and + anicteric sclerae Neck: normal visual inspection and trachea midline Respiratory: normal respiratory effort, lungs clear to auscultation Cardiovascular: Rate/Rhythm: regular rate and regular rhythm Gastrointestinal (Abdomen): Inspection/Auscultation: + abdomen distended Percussion/Palpation: abdomen soft; abdomen nontender Musculoskeletal: Head/Neck/Chest: normocephalic and head atraumatic negative for edema, peripheral pulses intact Skin: no rashes, warm and dry Neurologic: awake; not confused Speech / Cognition: normal speech Psychiatric: A+Ox3, euthymic affect Results & Data Results & Data ([facility]) Vital Signs (Past 12 Hours) Vital Signs Temp Pulse Pulse Pulse Resp BP BP 09/28/19 16:10 36.8 C 71 16 09/28/19 16:00 70 16 09/28/19 15:52 36.4 C L 77 16 09/28/19 11:39 36.7 C 91 H 20 149/76 H 09/28/19 11:00 77 18 114/69 09/28/19 09:39 85 18 122/73 09/28/19 08:41 09/28/19 08:04 09/28/19 07:47 37.5 C 106 H 24 118/83 BP Pulse Ox 09/28/19 16:10 134/74 95 09/28/19 16:00 131/81 95 09/28/19 15:52 148/85 H 95 09/28/19 11:39 93 09/28/19 11:00 94 09/28/19 09:39 94 09/28/19 08:41 91 09/28/19 08:04 91 09/28/19 07:47 91 Diagnostic Findings CXR: atelectesis CTAP: 1. Interval cholecystectomy. 2. Infiltrative change of the gallbladder fossa region, right flank, as well as right anterior abdominal region. 3. The bulk of these findings appear to relate to simple postoperative change, although this patient should be monitored clinically to exclude any possibility of an early inflammatory process. 4. Mildly progressive bibasilar parenchymal infiltrates. 5. Scattered colonic diverticulosis with no evidence for acute diverticulitis. ECG Additional Comments: NSR with sinus arrhythmia Code Status & VTE Plan VTE Prophylaxis Plan VTE Prophylaxis will be ordered: Yes PG Care Time/CCT Total # of Minutes Spent Total Time Spent with Patient: Total time spent is greater than 50% in coordination of care (as documented) at patient's floor/unit and/or counseling patient: Coding Level of Care Code None Diagnoses Postoperative bile leak K91.89; K83.8 ARF (acute renal failure) N17.9 GERD (gastroesophageal reflux disease) K21.9 Dyslipidemia E78.5 Hypertension I10 Prediabetes R73.03 DVT prophylaxis Z29.9
--- NOTE | 2019-09-28 17:05 | Hospitalist Consultation ---
Date of Consultation September 28, 2019 Assessment & Plan (1) Postoperative bile leak: s/p lap hallie on 09/24 CTAP as noted Increased LFTs, repeat in AM ERCP noted for postop bile leak, stent placed GI recs for clears, ADAT, no NSAIDs/aspirin x5days, repeat ERCP in 2 months for stent removal (2) ARF (acute renal failure): Baseline cr is 1.3, noted as 1.4 on admission Monitor (3) GERD (gastroesophageal reflux disease): resume home meds as per gen surg (4) Dyslipidemia: resume home meds as per gen surg (5) Hypertension: resume home meds as per gen surg (6) Prediabetes: No current meds, monitor A1c 5.8 on 03/28/19, repeat given slightly elevated FBS on admission Monitor BS (7) DVT prophylaxis: As per gen surg History of Present Illness Attending Physician: Belen Pryor MD History of Present Illness Chief Complaint: 69 y/o M who was admitted on 09/27 s/p lap hallie on 09/[address] Martinez. Pt had been having RUQ abd pain, n/v since yesterday. He was taken for ERCP with GI and is feeling much improved. He has no further abd pain, n/v since the procedure. States last emesis was around 6a today. He is hungry, but has not been brought a tray of clears yet. Pt denies fever, SOB, chest pain, c/d, LE swelling or pain. Allergies Allergy/AdvReac Type Severity Reaction Status Date / Time No Known Allergies Allergy Unknown Verified 09/28/19 08:30 Home Medications Home Medications Medication Instructions Recorded Confirmed Type albuterol sulfate 90 mcg/actuation 1 puffs INH Q6H PRN 06/18/18 09/28/19 History aerosol inhaler ibuprofen 400 mg PO Q6H PRN 08/25/19 09/28/19 History atorvastatin [Lipitor] 40 mg PO QAM 09/25/19 09/28/19 History fenofibrate nanocrystallized 48 mg PO QAM 09/25/19 09/28/19 History [Tricor] lidocaine [Lidoderm] 1 patch TOP DAILY PRN 09/25/19 09/28/19 History losartan [Cozaar] 100 mg PO QAM 09/25/19 09/28/19 History pantoprazole [Protonix] 40 mg PO QAM 09/25/19 09/28/19 History potassium citrate [Urocit-K 10] 10 meq PO BID 09/25/19 09/28/19 History oxycodone-acetaminophen [Percocet] 1 - 2 tab PO Q4H PRN #15 tab 09/26/19 09/28/19 Rx Patient History Medical History Acute blood loss anemia (Resolved) Adenocarcinoma of prostate Aneurysm artery, iliac common Arthritis Asthma Dyslipidemia GERD (gastroesophageal reflux disease) Hypertension Kidney stone (Resolved 09/15/12) Lumbar disc disease Lumbar radiculopathy Lumbar spinal stenosis Lung nodule stable October 2017; no f/u recommended. Nephrolithiasis Paroxysmal ventricular tachycardia USED TO F/U WITH [facility]-DISCHARGED 2 YRS AGO-NOW F/U PCP Prediabetes Premature ventricular contractions Prostate cancer (Resolved) Pulmonary emphysema Urge incontinence of urine Surgical History H/O lithotripsy X MULTIPLE H/O right inguinal hernia repair History of total right knee replacement Hx of umbilical hernia repair Prostatectomy (09/15/12) S/P carpal tunnel release R/L S/P laparoscopic cholecystectomy (09/25/19) Laparoscopic cholecystectomy 09/25/19 Dr. Martinez S/P left inguinal hernia repair S/P orchiopexy Family History Brother Bladder cancer Myocardial infarction Hypertension Father Myocardial infarction Coronary heart disease Hypertension Mother Hypertension Sister Thyroid cancer Other Heart disease Social History Preferred Language: Uzbek Communication Ability: Effective Machine Packaging Technician Required: No Beliefs That Will Affect Care: None marital status: Current Living Situation: Spouse current occupational status: retired Feels Safe at Home: Yes Safety Concerns: Feels Safe At This Time Smoking Status: Former smoker Second Hand Exposure: No ; Hx Alcohol Use: No Hx Substance Use: No Physical Activity Frequency: Daily Seatbelt Use: never Sunscreen Use: No Review of Systems Review of Systems: Pertinent positives and negatives reviewed in HPI--all othe rs negative Physical Exam Constitutional: WD/WN, vitals as above Eyes: normal visual kumari by confrontation and + anicteric sclerae Neck: normal visual inspection and trachea midline Respiratory: normal respiratory effort, lungs clear to auscultation Cardiovascular: Rate/Rhythm: regular rate and regular rhythm Gastrointestinal (Abdomen): Inspection/Auscultation: + abdomen distended Percussion/Palpation: abdomen soft; abdomen nontender Musculoskeletal: Head/Neck/Chest: normocephalic and head atraumatic Skin: no rashes, warm and dry Neurologic: awake; not confused Speech / Cognition: normal speech Psychiatric: A+Ox3, euthymic affect Results & Data Results & Data ([facility]) Vital Signs (Past 12 Hours) Vital Signs Temp Pulse Pulse Pulse Resp BP BP 09/28/19 16:50 36.8 C 68 18 09/28/19 16:20 37.1 C 76 16 09/28/19 16:10 36.8 C 71 16 09/28/19 16:00 70 16 09/28/19 15:52 36.4 C L 77 16 09/28/19 11:39 36.7 C 91 H 20 149/76 H 09/28/19 11:00 77 18 114/69 09/28/19 09:39 85 18 122/73 09/28/19 08:41 09/28/19 08:04 09/28/19 07:47 37.5 C 106 H 24 118/83 BP Pulse Ox 09/28/19 16:50 151/78 H 93 09/28/19 16:20 145/78 H 93 09/28/19 16:10 134/74 95 09/28/19 16:00 131/81 95 09/28/19 15:52 148/85 H 95 09/28/19 11:39 93 09/28/19 11:00 94 09/28/19 09:39 94 09/28/19 08:41 91 09/28/19 08:04 91 09/28/19 07:47 91 Diagnostic Findings CXR: atelectesis CTAP: 1. Interval cholecystectomy. 2. Infiltrative change of the gallbladder fossa region, right flank, as well as right anterior abdominal region. 3. The bulk of these findings appear to relate to simple postoperative change, although this patient should be monitored clinically to exclude any possibility of an early inflammatory process. 4. Mildly progressive bibasilar parenchymal infiltrates. 5. Scattered colonic diverticulosis with no evidence for acute diverticulitis. ECG Additional Comments: NSR PG Care Time/CCT Total # of Minutes Spent Total Time Spent with Patient: Total time spent is greater than 50% in coordination of care (as documented) at patient's floor/unit and/or counseling patient: Coding Level of Care Code 72100 Inpt Consult Level 3 Diagnoses Postoperative bile leak K91.89; K83.8 ARF (acute renal failure) N17.9 GERD (gastroesophageal reflux disease) K21.9 Dyslipidemia E78.5 Hypertension I10 Prediabetes R73.03 DVT prophylaxis Z29.9
[2019-09-28] MEDS: POTASSIUM CITRATE 10 MEQ TAB PO SCH (20:20)
--- NOTE | 2019-09-28 21:57 | Ultrasound Report ---
US abdomen limited HISTORY: Bile leak liver. COMPARISON: CT same date FINDINGS: Pancreas: Poorly seen due to overlying bowel content Liver: Mild fatty replacement Gallbladder: Surgically removed CBD: 4 mm Right kidney: No evidence for hydronephrosis IMPRESSION: 1. Fatty replacement of the liver. 2. Post cholecystectomy. 3. Trace perihepatic fluid ACT 112: Negative or not required by law. The above report was generated using voice recognition software. It may contain grammatical, syntax or spelling errors. Electronically signed by: Jesus Ramirez M.D. 09/28/2019 9:55 PM
[2019-09-28] MEDS: OXYCODONE/ACETAMINOPHEN 5mg/325mg TAB PO PRN (22:00)
[2019-09-28] MEDS ORDERED: ONDANSETRON INJ 2 MG/ML 2 ML VIAL IV SCH (22:15)
[2019-09-28] MEDS: ONDANSETRON INJ 2 MG/ML 2 ML VIAL IV PRN (22:21)
[2019-09-28] MEDS: HYDROmorphone INJ 0.5 MG/0.5 ML SYR IV PRN (23:23)
[2019-09-29] MEDS: OXYCODONE/ACETAMINOPHEN 5mg/325mg TAB PO PRN (02:46)
[2019-09-29] MEDS ORDERED: PROCHLORPERAZINE MALEATE 5 MG TAB PO ONE (03:30)
[2019-09-29 05:54] LABS: Basophils # (auto) 0.01 K/uL (0-0.2); Basophils % (auto) 0.1 %; Eosinophils # (auto) 0.05 K/uL (0-0.5); Eosinophils % (auto) 0.6 %; Hematocrit (blood only) 32.6 % (42-52); Hemoglobin 11.2 g/dL (14.0-18.0); Immature Granulocytes # (auto) 0.02 K/uL (0.00-0.02); Immature Granulocytes % (auto) 0.2 %; Lymphocytes # (auto) 0.59 K/uL (1.2-3.4); Lymphocytes % (auto) 6.6 %; Mean Corpuscular Hemoglobin 31.5 pg (25-34); Mean Corpuscular Hgb Conc 34.4 g/dL (32-36); Mean Corpuscular Volume 91.8 fL (80-100); Mean Platelet Volume 9.3 fL (7.4-10.4); Monocytes # (auto) 0.96 K/uL (0.11-0.59); Monocytes % (auto) 10.7 %; Neutrophils # (auto) 7.37 K/uL (1.4-6.5); Neutrophils % (auto) 81.8 %; Platelet Count 181 K/uL (130-400); RDW Coefficient of Variation 13.8 % (11.5-14.5); RDW Standard Deviation 46.5 fL (36.4-46.3); Red Blood Count 3.55 M/uL (4.7-6.1)
[2019-09-29] MEDS: HYDROmorphone INJ 0.5 MG/0.5 ML SYR IV PRN ×5 (06:00→23:56)
[2019-09-29] MEDS: PIPERACILLIN/TAZOBACTAM 3.375 GM in DEXTROSE 5% 100 ML IV SCH ×3 (06:09→21:09)
[2019-09-29 06:19] LABS: Estimated Average Glucose 123 mg/dl; Hemoglobin A1C 5.9 % (4.5-5.6)
[2019-09-29 06:26] LABS: Albumin Level 2.2 gm/dl (3.4-5.0); BUN Creatinine Ratio 13.9 (10-20); Calcium 8.8 mg/dl (8.5-10.1); Creatinine Clr Calc Pharmacy 58.4 ml/min; Est GFR (African American) 63.2; Est GFR (Non-African American) 54.5; Potassium 3.9 mmol/L (3.5-5.1)
[2019-09-29 06:29] LABS: Albumin Globulin Ratio 0.6 (0.9-2); Bilirubin,Total 2.4 mg/dl (0.2-1); Globulin 3.8 gm/dl (2.5-4.0)
[2019-09-29] MEDS ORDERED: PROMETHAZINE HCL 6.25 MG in SODIUM CHLORIDE 0.9% 50 ML IV STA (06:32)
--- NOTE | 2019-09-29 07:35 | XRay Report ---
XR KUB/Abdomen 1 view CLINICAL HISTORY: Abdominal pain and distention COMPARISON STUDY: 08/13/2018 FINDINGS: There are surgical clips in the right upper quadrant consistent with a prior cholecystectom y. There is an apparent right upper quadrant biliary stent. There is mild gaseous prominence of left mid abdominal small bowel loops. These are not pathologically dilated. This could indicate a focal il eus. There is no current evidence of high-grade bowel obstruction. IMPRESSION: 1. Suspected biliary stent 2. Mild ileus pattern. No current evidence of high-grade bowel obstruction. ACT 112: Negative or not required by law. Electronically signed by: Shankar Smith M.D. 09/29/2019 7:33 AM
--- NOTE | 2019-09-29 08:37 | Surgery Progress Note ---
Date of Service September 29, 2019 Assessment & Plan (1) Postoperative bile leak: POD#4 lap hallie/POD#1 ERCP pt admitted with RUQ pain and elevated LFT's, found to have bile leak now s/p ERCP and stent placement LFT's remain elevated but are downtrending today, Tbili: 2.4 (3.6), AST: 287 (733), ALFT: 473 (791), Alkp: 230 (309), lipase yesterday 3448 WBC:9 and patient afebrile with stable vitals pt with nausea and abdominal discomfort overnight, feels slightly better this AM. KUB ordered revealed mild ileus pattern will keep patient on clear liquids for now until symptoms improve, then can adv. diet as delaney. appreciate medicine and GI assistance with pt Supervising Physician Co-Signing Physician Notes Patient seen and examined, labs and imaging reviewed, agree with above. 69-year-old male status post laparoscopic cholecystectomy for acute on chronic acalculus cholecystitis, admitted yesterday with pancreatitis and transaminitis, ERCP yesterday showed bile leak. He is feeling better today but is still having some pain and nausea with clear liquids. He does feel bloated but he is passing gas. On exam his abdomen is soft, distended, moderately tender to palpation. Some ecchymosis at subxiphoid incision. His LFTs are now downtrending. Pathology showed cholecystitis without calculi. Status post lap hallie, status post ERCP for bile leak Continue clear liquids, hopefully will be able to advance diet as tolerated tomorrow as bowel function returns and epigastric discomfort decreases We will call him for follow-up in 2 weeks Appreciate GI assistance with this patient Subjective Patient states he did not have a very good night. Arthur bloated and nauseated. Received pain meds and anti-emetics with some relief. Physical Exam Physical Exam: awake/alert Gastrointestinal (Abdomen): Inspection/Auscultation: + abdomen distended and + abdominal surgical incision (c/d/i with dermabond over incisions, no sign of infection) Percussion/Palpation: + abdomen tender (ttp in RUQ) Results & Data Vital Signs (Past 12 Hours) Vital Signs Temp Pulse Resp BP BP Pulse Ox 09/29/19 07:22 36.6 C 67 16 125/71 90 04/27/20 04:00 36.8 C 62 16 127/67 92 09/29/19 02:49 36.8 C 63 20 134/75 93 09/28/19 23:00 36.7 C 63 16 166/84 H 95 PG Care Time/CCT Total # of Minutes Spent Total Time Spent with Patient: Total time spent is greater than 50% in coordination of care (as documented) at patient's floor/unit and/or counseling patient: Coding Level of Care Code None Diagnoses Postoperative bile leak K91.89; K83.8
[2019-09-29] MEDS: LOSARTAN POTASSIUM 50 MG TAB PO SCH (09:13)
[2019-09-29] MEDS: POTASSIUM CITRATE 10 MEQ TAB PO SCH ×2 (09:13→20:26)
[2019-09-29] MEDS: FENOFIBRATE NANOCRYSTALLIZED 48 MG TABLET PO SCH (09:13)
[2019-09-29] MEDS: ATORVASTATIN 40 MG TAB PO SCH (09:14)
[2019-09-29] MEDS: PANTOprazole 40 MG TAB PO SCH (09:14)
[2019-09-29] MEDS: D5W AND 1/2NSS + 20MEQ KCL 20 MEQ/1,000 ML BAG IV SCH ×2 (10:26→18:58)
--- NOTE | 2019-09-29 12:03 | Gastroenterology Progress Note ---
Date of Service September 29, 2019 Assessment & Plan (1) Postoperative right upper quadrant abdominal pain: He is post procedure day #2 from ERCP with sphincterotomy and stent placement for bile leak. Though this has improved his LFTs, he continues with diffuse abdominal pain and bloating, likely secondary to post-ERCP pancreatitis 1. Recommend only sips of clear liquids po today. 2. Analgesics. 3. Intermittent ambulation. 4. Needs OP ERCP in 6 weeks for removal of ERCP stent. Attg add: I reviewed chart and labs. Pt s/p ERCP yest for bile leak now with abd pain and increased lipase. Plan bowel rest, hydration, analgesics for post- ERCP pancreatitis. (2) Abnormal LFTs: Admission and Anticipated Discharge Date Admission Date: September 28, 2019 Subjective Mr. Powell is a 69 yr old male who underwent lab choley on 09/[address] Martinez for acute on chronic cholecystitis then ERCP yesterday for bile leak with sphincterotomy and stenting. Today he has significant diffuse abdominal pain, bloating, both worse after any drinking of clear liquids. Not passing gas since prior to ERCP. Most recent BM was yesterday morning. Labs: Lipase was elevated prior to ERCP at 13k LFTs were significantly elevated prior to ERCP and are now much improved: T bili 3.6->2.4; AST 773->287; ALT 791->473, Alk Phos 308->230. WBC elevated at 11 on arrival, ->9 today on Zosyn. Review of Systems Review of Systems: ROS: Gen: Denies weakness, fevers, weight loss Eyes: No eye redness, or pain, no recent vision changes Resp: No SOB, no cough Cardio: No palpitations/irregular beats, no chest pain GI: + abdomen bloating/distention pain. + nausea, novomiting : Denies pain on urination Skin: No jaundice, itching or new rashes Gastrointestinal: as per Subjective / HPI Physical Exam Constitutional: WD/WN, vitals as above + obese Was sleeping when I entered the room, but when awake intubated was quite uncomfortable. Eyes: PERRL, conjunctivae normal, anicteric sclerae ENMT: external ear and nose normal, oropharynx normal Neck: trachea midline, no thyromegaly Respiratory: normal respiratory effort, lungs clear to auscultation Cardiovascular: RRR, no murmur, no edema Gastrointestinal (Abdomen): Inspection/Auscultation: + abdomen distended (gasseous) Percussion/Palpation: + abdomen tender (diffusely, worse in the epigastric area) and + abdomen firm (moderately); no ascites Musculoskeletal: no cyanosis or clubbing, extremities motor strength 5/5 Skin: no rashes, warm and dry Neurologic: PERRL, EOMI, accommodation nl, no face palsy, no dysarthria Psychiatric: A+Ox3, euthymic affect Lymphatic: no cervical or axillary lymphadenopathy Results & Data ([facility]) Vital Signs (Past 12 Hours) Vital Signs Temp Pulse Resp BP BP Pulse Ox 09/29/19 07:22 36.6 C 67 16 125/71 90 09/29/19 04:00 36.8 C 62 16 127/67 92 09/29/19 02:49 36.8 C 63 20 134/75 93 Laboratory Results See HPI Diagnostic Findings Abd Xray today: Mild ileus
[2019-09-29 12:59] LABS: INR 1.1 (0.9-1.1); Prothrombin Time 11.7 Seconds (9.0-12.0)
[2019-09-29 13:11] LABS: Albumin Level 2.4 gm/dl (3.4-5.0); Bilirubin Direct 1.1 mg/dl (0-0.2); Bilirubin,Total 1.8 mg/dl (0.2-1); Total Protein 6.3 gm/dl (6.4-8.2)
--- NOTE | 2019-09-29 15:08 | Hospitalist Progress Note ---
Date of Service September 29, 2019 Assessment & Plan (1) Postoperative bile leak: s/p lap hallie on 09/24, POD 4 presented with elevated bili, AST and ALT ERCP 09/27 noted for postop bile leak, stent placed GI recs for clears, no NSAIDs/aspirin x5days (10/02), repeat ERCP in 2 months for stent removal (2) Pancreatitis: lipase was elevated at 3500 yesterday, up to 3900 today increase fluid rate clears ONLY, not really drinking anything could be due to recent lap hallie, bile sludge? lipase was up prior to ERCP, may have made things slightly worse but was necessary for bile leak repeat lipase in the morning (3) ARF (acute renal failure): resolved, Cr down to 1.3 today repeat tomorrow, follow UO (4) GERD (gastroesophageal reflux disease): resume home meds as per gen surg (5) Dyslipidemia: resume home meds as per gen surg (6) Hypertension: resume home meds as per gen surg (7) Prediabetes: No current meds, monitor A1c 5.8 on 03/28/19, repeat given slightly elevated FBS on admission Monitor BS (8) DVT prophylaxis: As per gen surg Admission and Anticipated Discharge Date Admission Date: September 28, 2019 Subjective patient feeling a little worse today, abdomen more bloated burping a lot, passing some flatus, had loose stool last night more abdominal pain, KUB this morning showed possible ileus reviewed labs, Bili, AST, ALT and alk phos all trending down lipase noted to be up yesterday morning at 3500, repeated this afternoon, up to 3900 could have a degree of pancreatitis after ERCP does not have much of an appetite, only on clears told him to not force anything, allow bowels and pancreas to rest reviewed chart, surgery and GI notes Review of Systems Review of Systems: All systems reviewed & are unremarkable except as noted in HPI & below Gastrointestinal: + abdominal pain, + belching, + bloating, + nausea and + diarrhea/loose stools; no vomiting and no constipation Physical Exam Constitutional: WD/WN, vitals as above + uncomfortable Eyes: PERRL, conjunctivae normal, anicteric sclerae ENMT: external ear and nose normal, oropharynx normal Neck: trachea midline, no thyromegaly Respiratory: normal respiratory effort, lungs clear to auscultation Cardiovascular: RRR, no murmur, no edema Gastrointestinal (Abdomen): Inspection/Auscultation: + abdomen distended, normal bowel sounds and + abdominal surgical scar Percussion/Palpation: + abdomen tender and + tympanic to percussion; no guarding, abdomen not rigid, + abdomen not soft (tense) and no ascites Musculoskeletal: no cyanosis or clubbing, extremities motor strength 5/5 Skin: no rashes, warm and dry Neurologic: patellar DTR's 2+ bilat, sensation intact and PERRL, EOMI, accommodation nl, no face palsy, no dysarthria Psychiatric: A+Ox3, euthymic affect Lymphatic: no cervical or axillary lymphadenopathy Results & Data Results & Data ([facility]) Vital Signs (Past 12 Hours) Vital Signs Temp Pulse Resp BP Pulse Ox 09/29/19 07:22 36.6 C 67 16 125/71 90 09/29/19 04:00 36.8 C 62 16 127/67 92 Laboratory Results Laboratory Results - last 24 hr 09/29/19 09/29/19 09/29/19 05:41 05:41 05:41 WBC 9.00 RBC 3.55 L Hgb 11.2 L Hct 32.6 L MCV 91.8 MCH 31.5 MCHC 34.4 RDW Std Deviation 46.5 H RDW Coeff of Bijan 13.8 Plt Count 181 MPV 9.3 Immature Gran % (Auto) 0.2 Neut % (Auto) 81.8 Lymph % (Auto) 6.6 Clinch % (Auto) 10.7 Eos % (Auto) 0.6 Baso % (Auto) 0.1 Immature Gran # (Auto) 0.02 Neut # (Auto) 7.37 H Lymph # (Auto) 0.59 L Clinch # (Auto) 0.96 H Eos # (Auto) 0.05 Baso # (Auto) 0.01 PT INR Sodium 138 Potassium 3.9 Chloride 107 Carbon Dioxide 26 Anion Gap 5.0 BUN 18 Creatinine 1.33 Est Cr Clr Drug Dosing 58.4 Est GFR ( Amer) 63.2 Est GFR (Non-Af Amer) 54.5 BUN/Creatinine Ratio 13.9 Glucose 130 H Estimat Average Glucose 123 Hemoglobin A1c 5.9 H Calcium 8.8 Iron TIBC Transferrin Total Bilirubin 2.4 H Direct Bilirubin AST 287 H ALT 473 H Alkaline Phosphatase 230 H Total Protein 6.0 L Albumin 2.2 L Globulin 3.8 Albumin/Globulin Ratio 0.6 L [id number] Ceruloplasmin Cholesterol Lipase Acetaminophen XOCHILT Screen 09/29/19 09/29/19 09/29/19 12:26 12:26 12:26 WBC RBC Hgb Hct MCV MCH MCHC RDW Std Deviation RDW Coeff of Bijan Plt Count MPV Immature Gran % (Auto) Neut % (Auto) Lymph % (Auto) Clinch % (Auto) Eos % (Auto) Baso % (Auto) Immature Gran # (Auto) Neut # (Auto) Lymph # (Auto) Clinch # (Auto) Eos # (Auto) Baso # (Auto) PT 11.7 INR 1.1 Sodium Potassium Chloride Carbon Dioxide Anion Gap BUN Creatinine Est Cr Clr Drug Dosing Est GFR ( Amer) Est GFR (Non-Af Amer) BUN/Creatinine Ratio Glucose Estimat Average Glucose Hemoglobin A1c Calcium Iron 20 L TIBC 206 L Transferrin 163 L Total Bilirubin 1.8 H Direct Bilirubin 1.1 H D AST 228 H ALT 439 H Alkaline Phosphatase 235 H Total Protein 6.3 L Albumin 2.4 L Globulin Albumin/Globulin Ratio [id number] Ceruloplasmin Cholesterol 122 Lipase 3940 H Acetaminophen < 2 L XOCHILT Screen 09/29/19 12:26 WBC RBC Hgb Hct MCV MCH MCHC RDW Std Deviation RDW Coeff of Bijan Plt Count MPV Immature Gran % (Auto) Neut % (Auto) Lymph % (Auto) Clinch % (Auto) Eos % (Auto) Baso % (Auto) Immature Gran # (Auto) Neut # (Auto) Lymph # (Auto) Clinch # (Auto) Eos # (Auto) Baso # (Auto) PT INR Sodium Potassium Chloride Carbon Dioxide Anion Gap BUN Creatinine Est Cr Clr Drug Dosing Est GFR ( Amer) Est GFR (Non-Af Amer) BUN/Creatinine Ratio Glucose Estimat Average Glucose Hemoglobin A1c Calcium Iron TIBC Transferrin Total Bilirubin Direct Bilirubin AST ALT Alkaline Phosphatase Total Protein Albumin Globulin Albumin/Globulin Ratio [id number]-[id number] Pending Ceruloplasmin Pending Cholesterol Lipase Acetaminophen XOCHILT Screen Pending Medications Administered Current Inpatient Medications Albuterol (Ventolin Hfa) 1 puffs INH Q6H PRN PRN Reason: Wheezing Stop: 10/28/19 11:39 Atorvastatin Calcium (Lipitor) 40 mg PO [facility] Stop: 10/29/19 08:59 Last Admin: 09/29/19 09:14 Dose: 40 mg Documented by: Fenofibrate (Fenofibrate) 48 mg PO [facility] Stop: 10/29/19 08:59 Last Admin: 09/29/19 09:13 Dose: 48 mg Documented by: Hydromorphone HCl (Dilaudid) 0.5 mg IV Q3H PRN PRN Reason: Pain Stop: 10/12/19 11:39 Last Admin: 09/29/19 12:34 Dose: 0.5 mg Documented by: Potassium Chloride/Dextrose/Sod Cl (D5w And 1/2nss + 20meq Kcl) 20 meq in 1,000 mls @ 100 mls/hr IV .Q10H [facility] Stop: 10/28/19 12:29 Last Admin: 09/29/19 10:26 Dose: 100 mls/hr Documented by: Piperacillin Sod/Tazobactam (Sod 3.375 gm/ Dextrose) 115 mls @ 28.75 mls/hr IV Q8H [facility]; Protocol Stop: 10/08/19 13:59 Last Admin: 09/29/19 13:58 Dose: 28.8 mls/hr Documented by: Promethazine HCl 6.25 mg/ (Sodium Chloride) 50.25 mls @ 201 mls/hr IV Q6H PRN PRN Reason: Nausea And Vomiting Stop: 10/29/19 08:37 Ioversol (Optiray 320 100ml) 93 ml IV ONCE PRN PRN Reason: Interaction Checking Stop: 10/02/19 08:47 Last Admin: 09/28/19 08:48 Dose: 93 ml Documented by: Lidocaine (Lidoderm 5%) 1 patch TD DAILY PRN PRN Reason: pain Stop: 10/28/19 11:39 Losartan Potassium (Cozaar) 100 mg PO [facility] Stop: 10/29/19 08:59 Last Admin: 09/29/19 09:13 Dose: 100 mg Documented by: Miscellaneous (Remove Lidoderm Patch) 1 ea N/A DAILY@2100 [place] Stop: 10/28/19 20:59 Last Admin: 09/28/19 20:20 Dose: Not Given Documented by: Miscellaneous Information (Consult) 1 ea N/A UD PRN PRN Reason: Consult Stop: 10/28/19 11:39 Ondansetron HCl (Zofran) 4 mg IV Q6H PRN PRN Reason: nausea Stop: 10/28/19 22:14 Last Admin: 09/28/19 22:21 Dose: 4 mg Documented by: Oxycodone/Acetaminophen (Percocet 5mg/325mg) 1 tab PO Q4H PRN PRN Reason: Pain Stop: 10/12/19 11:39 Last Admin: 09/29/19 02:46 Dose: 1 tab Documented by: Pantoprazole Sodium (Protonix) 40 mg PO QAM [place] Stop: 10/29/19 08:59 Last Admin: 09/29/19 09:14 Dose: 40 mg Documented by: Potassium Citrate (Urocit-K) 10 meq PO BID [facility] Stop: 10/28/19 20:59 Last Admin: 09/29/19 09:13 Dose: 10 meq Documented by: PG Care Time/CCT Total # of Minutes Spent Total Time Spent with Patient: Total time spent is greater than 50% in coordination of care (as documented) at patient's floor/unit and/or counseling patient: Coding Level of Care Code 69108 Subseq Hosp Care Lvl 3 Diagnoses Postoperative bile leak K91.89; K83.8 Pancreatitis K85.90 ARF (acute renal failure) N17.9 GERD (gastroesophageal reflux disease) K21.9 Dyslipidemia E78.5 Hypertension I10 Prediabetes R73.03 DVT prophylaxis Z29.9
[2019-09-29] MEDS ORDERED: ACETAMINOPHEN 1,000 MG/100 ML VIAL IV PRN (16:10)
[2019-09-29] MEDS: ONDANSETRON INJ 2 MG/ML 2 ML VIAL IV PRN (16:18)
[2019-09-29] MEDS: PROMETHAZINE HCL 6.25 MG in SODIUM CHLORIDE 0.9% 50 ML IV PRN (22:17)
[2019-09-30] MEDS: D5W AND 1/2NSS + 20MEQ KCL 20 MEQ/1,000 ML BAG IV SCH ×4 (02:03→21:55)
[2019-09-30] MEDS: HYDROmorphone INJ 0.5 MG/0.5 ML SYR IV PRN ×4 (03:20→17:49)
[2019-09-30 05:39] LABS: Basophils # (auto) 0.01 K/uL (0-0.2); Basophils % (auto) 0.1 %; Eosinophils # (auto) 0.04 K/uL (0-0.5); Eosinophils % (auto) 0.2 %; Hematocrit (blood only) 32.7 % (42-52); Immature Granulocytes # (auto) 0.06 K/uL (0.00-0.02); Immature Granulocytes % (auto) 0.4 %; Lymphocytes # (auto) 1.29 K/uL (1.2-3.4); Lymphocytes % (auto) 7.5 %; Mean Corpuscular Hgb Conc 33.6 g/dL (32-36); Mean Corpuscular Volume 92.1 fL (80-100); Mean Platelet Volume 9.1 fL (7.4-10.4); Monocytes # (auto) 0.71 K/uL (0.11-0.59); Monocytes % (auto) 4.2 %; Neutrophils # (auto) 14.98 K/uL (1.4-6.5); Neutrophils % (auto) 87.6 %; Platelet Count 186 K/uL (130-400); RDW Standard Deviation 47.3 fL (36.4-46.3); Red Blood Count 3.55 M/uL (4.7-6.1); White Blood Count 17.09 K/uL (4.8-10.8)
[2019-09-30] MEDS: PIPERACILLIN/TAZOBACTAM 3.375 GM in DEXTROSE 5% 100 ML IV SCH ×3 (05:55→21:55)
[2019-09-30 06:12] LABS: Albumin Level 2.1 gm/dl (3.4-5.0); BUN Creatinine Ratio 10.2 (10-20); Bilirubin Direct 0.6 mg/dl (0-0.2); Bilirubin,Total 1.1 mg/dl (0.2-1); Calcium 8.7 mg/dl (8.5-10.1); Est GFR (African American) 84.1; Est GFR (Non-African American) 72.6; Potassium 3.8 mmol/L (3.5-5.1)
--- NOTE | 2019-09-30 07:32 | XRay Report ---
KUB HISTORY: ileus COMPARISON: KUB 09/29/2019. FINDINGS: Interval decompression of the gas-filled loops of small bowel seen within the abdomen. Ther e is gas and stool remaining in the nondistended colon. Prior cholecystectomy. A metallic common bile duct stent remains in place. No renal calculi. No ureteral calculi. No pneumoperitoneum or pneumato sis. IMPRESSION: 1. Interval resolution of the suspected ileus. No evidence for bowel obstruction. 2. Common bile duct stent remains unchanged in position. ACT 112: Negative or not required by law. Electronically signed by: Nicholas Day M.D. 09/30/2019 7:31 AM
--- NOTE | 2019-09-30 09:50 | Surgery Progress Note ---
Date of Service September 30, 2019 Assessment & Plan (1) Postoperative bile leak: Patient developed mild pancreatitis that was most likely present before the ERCP Clinically improved today but WBC has elevated to 17,000 CT scan ordered by GI service Tolerating clear liquid diet Liver function tests continue to trend towards normal Await results of CT scan. Subjective Postoperative day #5 status post laparoscopic cholecystectomy/postoperative day #2 status post ERCP Had laparoscopic cholecystectomy for acute cholecystitis and developed a bile leak Passing small amounts of flatus today Abdomen is less distended Having very little abdominal pain Denies nausea and vomiting Tolerated clear liquid diet Physical Exam Gastrointestinal (Abdomen): Inspection/Auscultation: + abdomen distended (Mild) Percussion/Palpation: + abdomen tender (Minimal incisional) and abdomen soft Results & Data Vital Signs (Past 12 Hours) Vital Signs Temp Pulse Resp BP Pulse Ox 09/30/19 07:45 37.2 C 81 18 170/76 H 94 09/29/19 22:51 36.9 C 73 16 142/72 H 91 Laboratory Results 09/30/19 09/30/19 09/29/19 Range/Units 05:28 05:28 12:26 WBC 17.09 H (4.8-10.8) K/uL RBC 3.55 L (4.7-6.1) M/uL Hgb 11.0 L (14.0-18.0) g/dL Hct 32.7 L (42-52) % MCV 92.1 (80-100) fL MCH 31.0 (25-34) pg MCHC 33.6 (32-36) g/dL RDW Std Deviation 47.3 H (36.4-46.3) fL RDW Coeff of Bijan 14.0 (11.5-14.5) % Plt Count 186 (130-400) K/uL MPV 9.1 (7.4-10.4) fL Immature Gran % (Auto) 0.4 % Neut % (Auto) 87.6 % Lymph % (Auto) 7.5 % Walker % (Auto) 4.2 % Eos % (Auto) 0.2 % Baso % (Auto) 0.1 % Immature Gran # (Auto) 0.06 H (0.00-0.02) K/uL Neut # (Auto) 14.98 H (1.4-6.5) K/uL Lymph # (Auto) 1.29 (1.2-3.4) K/uL Walker # (Auto) 0.71 H (0.11-0.59) K/uL Eos # (Auto) 0.04 (0-0.5) K/uL Baso # (Auto) 0.01 (0-0.2) K/uL PT (9.0-12.0) Seconds INR (0.9-1.1) Sodium 135 L (136-145) mmol/L Potassium 3.8 (3.5-5.1) mmol/L Chloride 104 (98-107) mmol/L Carbon Dioxide 24 (21-32) mmol/L Anion Gap 7.0 (3-11) BUN 11 (7-18) mg/dl Creatinine 1.05 (0.6-1.4) mg/dl Est Cr Clr Drug Dosing 74.0 ml/min Est GFR ( Amer) 84.1 Est GFR (Non-Af Amer) 72.6 BUN/Creatinine Ratio 10.2 (10-20) Glucose 124 H (70-99) mg/dl Calcium 8.7 (8.5-10.1) mg/dl Iron (35-175) mcg/dl TIBC (250-450) mcg/dl Transferrin (200-360) mg/dl Total Bilirubin 1.1 H (0.2-1) mg/dl Direct Bilirubin 0.6 H (0-0.2) mg/dl AST 104 H (15-37) U/L ALT 285 H (12-78) U/L Alkaline Phosphatase 196 H (45-117) U/L Total Protein 6.0 L (6.4-8.2) gm/dl Albumin 2.1 L (3.4-5.0) gm/dl [id number] Pending Ceruloplasmin Pending Cholesterol (0-200) mg/dl Lipase 1082 H (73-393) U/L Acetaminophen (10-30) ug/ml XOCHILT Screen Pending 09/29/19 09/29/19 09/29/19 Range/Units 12:26 12:26 12:26 WBC (4.8-10.8) K/uL RBC (4.7-6.1) M/uL Hgb (14.0-18.0) g/dL Hct (42-52) % MCV (80-100) fL MCH (25-34) pg MCHC (32-36) g/dL RDW Std Deviation (36.4-46.3) fL RDW Coeff of Bijan (11.5-14.5) % Plt Count (130-400) K/uL MPV (7.4-10.4) fL Immature Gran % (Auto) % Neut % (Auto) % Lymph % (Auto) % Walker % (Auto) % Eos % (Auto) % Baso % (Auto) % Immature Gran # (Auto) (0.00-0.02) K/uL Neut # (Auto) (1.4-6.5) K/uL Lymph # (Auto) (1.2-3.4) K/uL Walker # (Auto) (0.11-0.59) K/uL Eos # (Auto) (0-0.5) K/uL Baso # (Auto) (0-0.2) K/uL PT 11.7 (9.0-12.0) Seconds INR 1.1 (0.9-1.1) Sodium (136-145) mmol/L Potassium (3.5-5.1) mmol/L Chloride (98-107) mmol/L Carbon Dioxide (21-32) mmol/L Anion Gap (3-11) BUN (7-18) mg/dl Creatinine (0.6-1.4) mg/dl Est Cr Clr Drug Dosing ml/min Est GFR ( Amer) Est GFR (Non-Af Amer) BUN/Creatinine Ratio (10-20) Glucose (70-99) mg/dl Calcium (8.5-10.1) mg/dl Iron 20 L (35-175) mcg/dl TIBC 206 L (250-450) mcg/dl Transferrin 163 L (200-360) mg/dl Total Bilirubin 1.8 H (0.2-1) mg/dl Direct Bilirubin 1.1 H D (0-0.2) mg/dl AST 228 H (15-37) U/L ALT 439 H (12-78) U/L Alkaline Phosphatase 235 H (45-117) U/L Total Protein 6.3 L (6.4-8.2) gm/dl Albumin 2.4 L (3.4-5.0) gm/dl [id number] Ceruloplasmin Cholesterol 122 (0-200) mg/dl Lipase 3940 H (73-393) U/L Acetaminophen < 2 L (10-30) ug/ml XOCHILT Screen
[2019-09-30] MEDS: LOSARTAN POTASSIUM 50 MG TAB PO SCH (10:02)
[2019-09-30] MEDS: ATORVASTATIN 40 MG TAB PO SCH (10:03)
[2019-09-30] MEDS: FENOFIBRATE NANOCRYSTALLIZED 48 MG TABLET PO SCH (10:03)
[2019-09-30] MEDS: POTASSIUM CITRATE 10 MEQ TAB PO SCH ×2 (10:04→21:12)
[2019-09-30] MEDS: PANTOprazole 40 MG TAB PO SCH (10:04)
--- NOTE | 2019-09-30 10:24 | Gastroenterology Progress Note ---
Date of Service September 30, 2019 Assessment & Plan (1) Postoperative right upper quadrant abdominal pain: He is post procedure day #3 from ERCP with sphincterotomy and stent placement for bile leak. Ileus resolved. Now with leukocytosis and with brief low grade fever yesterday. 1. CT abd/pelvis with IV/oral gastrografin contrast to r/o perforation and biloma. 2. Analgesics. 3. Continue Zosyn for now. 4. Intermittent ambulation. 5. Needs OP ERCP in 6 weeks for removal of ERCP stent. 6. Discussed with Dr. Chaudhary, surgery. 7. Further recommendations to follow after CT results availble and reviewed. Attg add: I interviewed and examined pt, reviewed chart and labs. Pt has mi nimal abd pain today. His appetite remains fair. No BM, but flatus. No fever on. On exam, he appears comfortable. Abd is mildly distended and tympanic, but not tender. His labs show leukocytosis, improved lipase and LFT's. CT shows interstitial pancreatitis, biloma with mild rim enhancement. A/P: Bile leak s/p ERCP now with post -ERCP pancreatitis, biloma - Diet as tolerated, cont abx. Leukocytosis today related to Biloma? Plan to change empiric abx if WBC cont to rise or re-spokes, consider Imipenem. - CT shows mild constipation -- dulcolax. Present on Admission?: Yes (2) Abnormal LFTs: Admission and Anticipated Discharge Date Admission Date: September 28, 2019 Subjective Postoperative lap choley day #6 and post procedure day #2 ERCP with sphincterotomy and stenting for bile leak. Temp to 38.4 at 3PM yesterday, no fever since. No tachycardia. mildy hypertensive. New leukocytosis on Zosyn. WBC today 17. Lipase and LFTs improving. Feels better today. Abdomen is less distended. Passing flatus. No N/V but has been NPO since mid day yesterday. Review of Systems Review of Systems: ROS: Gen: Denies weakness, fevers, weight loss Eyes: No eye redness, or pain, no recent vision changes Resp: No SOB, no cough Cardio: No palpitations/irregular beats, no chest pain GI: + abdomen bloating/distention pain. + nausea, novomiting : Denies pain on urination Skin: No jaundice, itching or new rashes Gastrointestinal: as per Subjective / HPI Physical Exam Constitutional: WD/WN, vitals as above + obese Eyes: PERRL, conjunctivae normal, anicteric sclerae ENMT: external ear and nose normal, oropharynx normal Neck: trachea midline, no thyromegaly Respiratory: normal respiratory effort, lungs clear to auscultation Cardiovascular: RRR, no murmur, no edema Gastrointestinal (Abdomen): Inspection/Auscultation: normal bowel sounds; abdomen not distended Percussion/Palpation: + abdomen tender (minimal epigastric tenderness) and abdomen soft; no ascites incisions healing well, w/o discharge. Mild ecchymosis at epigastric area incision. Musculoskeletal: no cyanosis or clubbing, extremities motor strength 5/5 Skin: no rashes, warm and dry Neurologic: PERRL, EOMI, accommodation nl, no face palsy, no dysarthria Psychiatric: A+Ox3, euthymic affect Lymphatic: no cervical or axillary lymphadenopathy Results & Data ([facility]) Vital Signs (Past 12 Hours) Vital Signs Temp Pulse Resp BP Pulse Ox 09/30/19 07:45 37.2 C 81 18 170/76 H 94 09/29/19 22:51 36.9 C 73 16 142/72 H 91
[2019-09-30] MEDS ORDERED: IOVERSOL 100ml IV PRN (12:03)
[2019-09-30] MEDS ORDERED: bisacodyL 10 MG SUPP PR STA (12:37)
--- NOTE | 2019-09-30 12:37 | CT Scan Report ---
ABDOMEN AND PELVIS CT WITH IV AND ORAL CONTRAST CT DOSE: 743.99 mGy.cm HISTORY: Acute fever with leukocytosis and recent cholecystectomy. Post hallie/ERCP fever, elv leuk; r/o perf, biloma TECHNIQUE: Multiaxial CT images of the abdomen and pelvis were performed following the IV administrat ion of 94 cc of Optiray 320 and oral contrast. A dose lowering technique was utilized adhering to e principles of ALARA. COMPARISON STUDY: CT abdomen and pelvis 09/28/2019, KUB 09/30/2019. FINDINGS: Trace pleural effusions with dependent bibasilar linear consolidative opacities suggestive of atelect asis. No pneumatosis or pneumoperitoneum. The imaged inferior cardiac chambers are mildly enlarged. M oderate coronary artery calcifications. The spleen and adrenal glands are unremarkable. Mild peripanc reatic edema suggestive of acute pancreatitis. There is homogeneous enhancement of the pancreas witho ut acute peripancreatic fluid collection. No pancreatic ductal dilation. Mild pneumobilia with cholec ystectomy. Common bile duct stent is in satisfactory positioning. Trace debris is noted within the di stal portion of the stent. There is persistent edema and trace free fluid within the luiz hepatis tr acking along the inferior right hepatic lobe and right pericolic gutter which has not significantly c hanged from comparison. No drainable fluid collection. Patency of the portal and hepatic veins. 6 mm nonobstructing calculus of the interpolar left kidney. There are at least 3 nonobstructing calcu li of the right kidney measuring up to 3 mm. No ureteral calculi or uropathy. Urinary bladder is unre markable. Partially imaged device suggestive of a pain is prompt is noted with portion of the device within the intra-abdominal cavity. Moderate calcified plaque the abdominal aorta without aneurysm. Un remarkable IVC. No adenopathy. Mild wall thickening of the duodenum, likely reactive. No bowel obstru ction. Colonic diverticulosis without acute diverticulitis. Mild to moderate fecal retention. Termina l ileum and appendix are unremarkable. Mild body wall edema. Bones appear intact. Degenerative change s of the spine, pelvis and hips. IMPRESSION: 1. Postoperative changes of recent laparoscopic cholecystectomy. There is persistent trace fluid and moderate edema within the luiz hepatis which tracks along the inferior right hepatic lobe and right pericolic gutter with mild peripheral enhancement along the inferior right hepatic lobe suspicious fo r developing abscess. No drainable fluid collection is identified at this time. 2. Interval development of acute interstitial edematous pancreatitis, new from 09/28/2019. No acute pe ripancreatic collection. 3. Satisfactory positioning of the common bile duct stent which is patent with minimal distal intralu gil debris. 4. Trace pleural effusions with mild bibasilar atelectasis. 5. Additional findings as above. ACT 112: Negative or not required by law. The above report was generated using voice recognition software. It may contain grammatical, syntax o r spelling errors. Electronically signed by: Rome Hammer M.D. 09/30/2019 12:35 PM
[2019-09-30] MEDS: PROMETHAZINE HCL 6.25 MG in SODIUM CHLORIDE 0.9% 50 ML IV PRN ×2 (13:32→22:20)
--- NOTE | 2019-09-30 16:03 | Hospitalist Progress Note ---
Date of Service September 30, 2019 Assessment & Plan (1) Postoperative bile leak: s/p lap hallie on 09/24, POD 5 presented with elevated bili, AST and ALT ERCP 09/27 noted for postop bile leak, stent placed GI recs no NSAIDs/aspirin x5days (10/02), repeat ERCP in 2 months for stent removal WBC up to 17k today, fever yesterday, but far less pain CT on 09/29 with developing fluid collection, likely related to bile leak continue Zosyn blood cultures drawn on 09/28 in the afternoon when he had a fever, no growth thus far (2) Pancreatitis: lipase was elevated at 3500 09/27, up to 3900 on 09/28 treated with fluids at 150cc/hr clears ONLY CT on 09/29 with evidence of pancreatitis lipase down to 1080 today, markedly improved, repeat tomorrow (3) Leukocytosis: up to 17k today, likely related to developing fluid collection along liver, likely from bile leak no drainable fluid collection at this time continue on Zosyn, no fever since 09/28 in the afternoon repeat CBC tomorrow (4) ARF (acute renal failure): resolved, Cr down to 1.3 for two days in a row repeat tomorrow, making adequate urine (5) GERD (gastroesophageal reflux disease): no symptoms (6) Dyslipidemia: resume home meds as per gen surg (7) Hypertension: resume home meds as per gen surg (8) Prediabetes: No current meds, monitor for hyperglycemia A1c 5.8 on 03/28/19, (9) DVT prophylaxis: As per gen surg Admission and Anticipated Discharge Date Admission Date: September 28, 2019 Subjective patient feeling a lot better today, less distension, no belching he is passing flatus, no BM as of today had a fever yesterday, no fever since that time, WBC went up to 17k bili, AST, ALT and alk phos all going down lipase down to [address] with PO contrast, there is a fluid collection along liver, possible developing abscess, no drainable fluid at this time there is evidence of pancreatitis KUB this morning showed resolved ileus patient felt so good that he asked surgery to go home, clearly a marked improvement from yesterday minimal dyspnea on exertion, no chest pain/pressure Review of Systems Review of Systems: All systems reviewed & are unremarkable except as noted in HPI & below Constitutional: + fever, + chills, + sweats, + fatigue and + weakness Gastrointestinal: + abdominal pain (less), + bloating and + constipation (passing flatus); no belching, no nausea, no vomiting and no diarrhea/loose stools Physical Exam Constitutional: WD/WN, vitals as above + uncomfortable Eyes: PERRL, conjunctivae normal, anicteric sclerae ENMT: external ear and nose normal, oropharynx normal Neck: trachea midline, no thyromegaly Respiratory: normal respiratory effort, lungs clear to auscultation Cardiovascular: RRR, no murmur, no edema Gastrointestinal (Abdomen): Inspection/Auscultation: abdomen normal to inspection, normal bowel sounds and + abdominal surgical scar; abdomen not distended Percussion/Palpation: abdomen soft and + tympanic to percussion; abdomen nontender, no guarding, abdomen not rigid and no ascites Musculoskeletal: no cyanosis or clubbing, extremities motor strength 5/5 Skin: no rashes, warm and dry Neurologic: patellar DTR's 2+ bilat, sensation intact and PERRL, EOMI, accommodation nl, no face palsy, no dysarthria Psychiatric: A+Ox3, euthymic affect Lymphatic: no cervical or axillary lymphadenopathy Results & Data Results & Data ([facility]) Vital Signs (Past 12 Hours) Vital Signs Temp Pulse Resp BP Pulse Ox 09/30/19 15:26 37.4 C 77 18 137/73 91 09/30/19 07:45 37.2 C 81 18 170/76 H 94 Laboratory Results Laboratory Results - last 24 hr 09/30/19 09/30/19 05:28 05:28 WBC 17.09 H RBC 3.55 L Hgb 11.0 L Hct 32.7 L MCV 92.1 MCH 31.0 MCHC 33.6 RDW Std Deviation 47.3 H RDW Coeff of Bijan 14.0 Plt Count 186 MPV 9.1 Immature Gran % (Auto) 0.4 Neut % (Auto) 87.6 Lymph % (Auto) 7.5 [place] % (Auto) 4.2 Eos % (Auto) 0.2 Baso % (Auto) 0.1 Immature Gran # (Auto) 0.06 H Neut # (Auto) 14.98 H Lymph # (Auto) 1.29 [place] # (Auto) 0.71 H Eos # (Auto) 0.04 Baso # (Auto) 0.01 Sodium 135 L Potassium 3.8 Chloride 104 Carbon Dioxide 24 Anion Gap 7.0 BUN 11 Creatinine 1.05 Est Cr Clr Drug Dosing 74.0 Est GFR ( Amer) 84.1 Est GFR (Non-Af Amer) 72.6 BUN/Creatinine Ratio 10.2 Glucose 124 H Calcium 8.7 Total Bilirubin 1.1 H Direct Bilirubin 0.6 H AST 104 H ALT 285 H Alkaline Phosphatase 196 H Total Protein 6.0 L Albumin 2.1 L Lipase 1082 H Microbiology 09/28/19 08:22 Blood Aerobic Blood Culture - Preliminary No growth in Aerobic bottle after 48 hours. 09/28/19 08:22 Blood Anaerobic Blood Culture - Preliminary No growth in Anaerobic bottle after 48 hours. 09/28/19 08:20 Blood Aerobic Blood Culture - Preliminary No growth in Aerobic bottle after 48 hours. 09/28/19 08:20 Blood Anaerobic Blood Culture - Preliminary No growth in Anaerobic bottle after [address] abdomen/pelvis with oral contrast IMPRESSION: 1. Postoperative changes of recent laparoscopic cholecystectomy. There is persistent trace fluid and moderate edema within the luiz hepatis which tracks along the inferior right hepatic lobe and right pericolic gutter with mild peripheral enhancement along the inferior right hepatic lobe suspicious for developing abscess. No drainable fluid collection is identified at this time. 2. Interval development of acute interstitial edematous pancreatitis, new from 09/28/2019. No acute peripancreatic collection. 3. Satisfactory positioning of the common bile duct stent which is patent with minimal distal intraluminal debris. 4. Trace pleural effusions with mild bibasilar atelectasis. 5. Additional findings as above. Medications Administered Current Inpatient Medications Albuterol (Ventolin Hfa) 1 puffs INH Q6H PRN PRN Reason: Wheezing Stop: 10/28/19 11:39 Atorvastatin Calcium (Lipitor) [facility] Stop: 10/29/19 08:59 Last Admin: 09/30/19 10:03 Dose: Not Given Documented by: Fenofibrate (Fenofibrate) 48 mg PO QAM [facility] Stop: 10/29/19 08:59 Last Admin: 09/30/19 10:03 Dose: Not Given Documented by: Hydromorphone HCl (Dilaudid) 0.5 mg IV Q3H PRN PRN Reason: Pain Stop: 10/12/19 11:39 Last Admin: 09/30/19 13:37 Dose: 0.5 mg Documented by: Potassium Chloride/Dextrose/Sod Cl (D5w And 1/2nss + 20meq Kcl) 20 meq in 1,000 mls @ 150 mls/hr IV .Q6H40M [place] Stop: 10/28/19 12:29 Last Admin: 09/30/19 08:53 Dose: 150 mls/hr Documented by: Piperacillin Sod/Tazobactam (Sod 3.375 gm/ Dextrose) 115 mls @ 28.75 mls/hr IV Q8H [place]; Protocol Stop: 10/08/19 13:59 Last Admin: 09/30/19 13:58 Dose: 28.8 mls/hr Documented by: Promethazine HCl 6.25 mg/ (Sodium Chloride) 50.25 mls @ 201 mls/hr IV Q6H PRN PRN Reason: Nausea And Vomiting Stop: 10/29/19 08:37 Last Infusion: 09/30/19 13:56 Dose: Infused Documented by: Acetaminophen (Ofirmev) 1,000 mg in 100 mls @ 400 mls/hr IV Q8H PRN PRN Reason: Fever Stop: 10/02/19 16:09 Last Infusion: 09/29/19 16:51 Dose: Infused Documented by: Ioversol (Optiray 320 100ml) 93 ml IV ONCE PRN PRN Reason: Interaction Checking Stop: 10/02/19 08:47 Last Admin: 09/28/19 08:48 Dose: 93 ml Documented by: Ioversol (Optiray 320 100ml) 94 ml IV ONCE PRN PRN Reason: Interaction Checking Stop: 10/04/19 12:02 Last Admin: 09/30/19 12:03 Dose: 94 ml Documented by: Lidocaine (Lidoderm 5%) 1 patch TD DAILY PRN PRN Reason: pain Stop: 10/28/19 11:39 Losartan Potassium (Cozaar) 100 mg PO QAM [facility] Stop: 10/29/19 08:59 Last Admin: 09/30/19 10:02 Dose: 100 mg Documented by: Miscellaneous (Remove Lidoderm Patch) 1 ea N/A DAILY@2100 [facility] Stop: 10/28/19 20:59 Last Admin: 09/29/19 20:26 Dose: Not Given Documented by: Miscellaneous Information (Consult) 1 ea N/A UD PRN PRN Reason: Consult Stop: 10/28/19 11:39 Ondansetron HCl (Zofran) 4 mg IV Q6H PRN PRN Reason: nausea Stop: 10/28/19 22:14 Last Admin: 09/29/19 16:18 Dose: 4 mg Documented by: Oxycodone/Acetaminophen (Percocet 5mg/325mg) 1 tab PO Q4H PRN PRN Reason: Pain Stop: 10/12/19 11:39 Last Admin: 09/29/19 02:46 Dose: 1 tab Documented by: Pantoprazole Sodium (Protonix) 40 mg PO QAM [place] Stop: 10/29/19 08:59 Last Admin: 09/30/19 10:04 Dose: Not Given Documented by: Potassium Citrate (Urocit-K) 10 meq PO BID [place] Stop: 10/28/19 20:59 Last Admin: 09/30/19 10:04 Dose: Not Given Documented by: PG Care Time/CCT Total # of Minutes Spent Total Time Spent with Patient: Total time spent is greater than 50% in coordination of care (as documented) at patient's floor/unit and/or counseling patient: Coding Level of Care Code 33971 Subseq Hosp Care Lvl 3 Diagnoses Postoperative bile leak K91.89; K83.8 Pancreatitis K85.90 Leukocytosis D72.829 ARF (acute renal failure) N17.9 GERD (gastroesophageal reflux disease) K21.9 Dyslipidemia E78.5 Hypertension I10 Prediabetes R73.03 DVT prophylaxis Z29.9
[2019-10-01] MEDS: D5W AND 1/2NSS + 20MEQ KCL 20 MEQ/1,000 ML BAG IV SCH ×2 (05:27→13:22)
[2019-10-01] MEDS: PIPERACILLIN/TAZOBACTAM 3.375 GM in DEXTROSE 5% 100 ML IV SCH (05:27)
[2019-10-01 05:45] LABS: Basophils # (auto) 0.02 K/uL (0-0.2); Basophils % (auto) 0.1 %; Eosinophils # (auto) 0.24 K/uL (0-0.5); Eosinophils % (auto) 1.4 %; Hematocrit (blood only) 33.3 % (42-52); Hemoglobin 11.2 g/dL (14.0-18.0); Immature Granulocytes % (auto) 0.6 %; Lymphocytes # (auto) 1.07 K/uL (1.2-3.4); Lymphocytes % (auto) 6.3 %; Mean Corpuscular Hemoglobin 30.4 pg (25-34); Mean Corpuscular Hgb Conc 33.6 g/dL (32-36); Mean Corpuscular Volume 90.2 fL (80-100); Monocytes # (auto) 1.49 K/uL (0.11-0.59); Monocytes % (auto) 8.7 %; Neutrophils # (auto) 14.15 K/uL (1.4-6.5); Neutrophils % (auto) 82.9 %; Platelet Count 239 K/uL (130-400); RDW Coefficient of Variation 14.2 % (11.5-14.5); RDW Standard Deviation 46.8 fL (36.4-46.3); Red Blood Count 3.69 M/uL (4.7-6.1); White Blood Count 17.07 K/uL (4.8-10.8)
[2019-10-01 06:12] LABS: BUN Creatinine Ratio 7.5 (10-20); Creatinine Clr Calc Pharmacy 75.4 ml/min; Est GFR (African American) 86.1; Est GFR (Non-African American) 74.3; Potassium 3.4 mmol/L (3.5-5.1)
[2019-10-01 06:13] LABS: Calcium 8.8 mg/dl (8.5-10.1)
[2019-10-01 06:15] LABS: Albumin Globulin Ratio 0.5 (0.9-2); Bilirubin,Total 1.1 mg/dl (0.2-1); Globulin 4.1 gm/dl (2.5-4.0); Total Protein 6.1 gm/dl (6.4-8.2)
--- NOTE | 2019-10-01 09:23 | Surgery Progress Note ---
Date of Service October 01, 2019 Assessment & Plan (1) Postoperative bile leak: Status post lap hallie with bile leak, status post ERCP with stent placement. Appears to have resolving pancreatitis which was likely present prior to the ERCP. Unclear etiology as he had no stones on pathology or on initial imaging. Overall improving. I personally reviewed the CT scan, and there is no drainable fluid collection and I do not think this is a developing abscess but more likely irritation from the pancreatitis and small bile leak. We will continue him on antibiotics and he will be discharged on oral antibiotics. Clear liquids this morning, advance diet as tolerated Continue IV antibiotics If WBC decreasing tomorrow, and tolerating regular diet, he may be discharged on oral antibiotics He needs to follow-up with GI for stent removal as an outpatient in 6 weeks Our clinic will call him for follow-up Dr. Chaudhary will cover tomorrow (2) Pancreatitis: Subjective 69-year-old male status post laparoscopic cholecystectomy for acalculous cholecystitis, readmitted for bile leak status post ERCP with stent placement. CT yesterday showed pancreatitis along with some scant fluid in the gallbladder fossa. He feels better this morning, willing to try clear liquids today. He had multiple bowel movements with oral contrast. Still feels a little bloated. Physical Exam Constitutional: WD/WN, vitals as above Gastrointestinal (Abdomen): normal bowel sounds, soft, nontender, no hepatosplenomegaly Inspection/Auscultation: + abdomen distended (Less distended than yesterday) and + abdominal surgical incision (Resolving ecchymosis at subxiphoid incision) Results & Data Vital Signs (Past 12 Hours) Vital Signs Temp Pulse Resp BP Pulse Ox 10/01/19 08:11 36.8 C 68 16 165/81 H 95 10/01/19 01:38 37 C 71 18 177/85 H 98 Laboratory Results Laboratory Results - last 24 hr 10/01/19 10/01/19 05:07 05:07 WBC 17.07 H RBC 3.69 L Hgb 11.2 L Hct 33.3 L MCV 90.2 MCH 30.4 MCHC 33.6 RDW Std Deviation 46.8 H RDW Coeff of Bijan 14.2 Plt Count 239 MPV 10.0 Immature Gran % (Auto) 0.6 Neut % (Auto) 82.9 Lymph % (Auto) 6.3 [place] % (Auto) 8.7 Eos % (Auto) 1.4 Baso % (Auto) 0.1 Immature Gran # (Auto) 0.10 H Neut # (Auto) 14.15 H Lymph # (Auto) 1.07 L [place] # (Auto) 1.49 H Eos # (Auto) 0.24 Baso # (Auto) 0.02 Sodium 133 L Potassium 3.4 L Chloride 102 Carbon Dioxide 24 Anion Gap 7.0 BUN 8 Creatinine 1.03 Est Cr Clr Drug Dosing 75.4 Est GFR ( Amer) 86.1 Est GFR (Non-Af Amer) 74.3 BUN/Creatinine Ratio 7.5 L Glucose 119 H Calcium 8.8 Total Bilirubin 1.1 H AST 44 H ALT 182 H Alkaline Phosphatase 173 H Total Protein 6.1 L Albumin 2.0 L Globulin 4.1 H Albumin/Globulin Ratio 0.5 L Lipase 419 H PG Care Time/CCT Total # of Minutes Spent Total Time Spent with Patient: Total time spent is greater than 50% in coordination of care (as documented) at patient's floor/unit and/or counseling patient: Coding Level of Care Code None Diagnoses Postoperative bile leak K91.89; K83.8 Pancreatitis K85.90
[2019-10-01] MEDS: HYDROmorphone INJ 0.5 MG/0.5 ML SYR IV PRN (09:47)
[2019-10-01] MEDS: PANTOprazole 40 MG TAB PO SCH (10:33)
[2019-10-01] MEDS: LOSARTAN POTASSIUM 50 MG TAB PO SCH (10:33)
[2019-10-01] MEDS: POTASSIUM CITRATE 10 MEQ TAB PO SCH ×2 (10:34→21:07)
[2019-10-01] MEDS: ATORVASTATIN 40 MG TAB PO SCH (10:35)
[2019-10-01] MEDS: FENOFIBRATE NANOCRYSTALLIZED 48 MG TABLET PO SCH (10:35)
--- NOTE | 2019-10-01 10:49 | Gastroenterology Progress Note ---
Date of Service October 01, 2019 Assessment & Plan (1) Pancreatitis: Pancreatitis clinically improving. May advance diet, but should be low fat. (2) Postoperative bile leak: With leukocytosis, suggesting intraabdominal infectin. Plan: 1. Change from Zosyn to Cefepime/Flagyl IV. 2. At this point fluid in abdomen is not a drainable abscess. 3. Will continue to follow closely. Present on Admission?: Yes Admission and Anticipated Discharge Date Admission Date: September 28, 2019 Supervising Physician Co-Signing Physician Notes Attg add: Late entry. I reviewed chart and labs, interviewed and examined pt. Pt continues to report abdominal bloating, although tolerating PO well and having BM's. On exam, abd is mildly distended, non tender ot my exam. Labs show persistent leukocytosis. A/P: Bile leak s/p hallie Post ERCP Pancreatitis Persistent leukocytosis but looks well and cx neg while on Zosyn - Switch abx to cefipime / Flagyl - would consider at least 3 days on this regimen. Diet as tolerated. D/c IVF's Subjective 69-year-old male status post laparoscopic cholecystectomy 09/24 for acalculous cholecystitis, readmitted for bile leak status post ERCP 09/[address] yesterday showed pancreatitis, small biloma. He feels better this morning. [place] well yesterday as well. Though does have mild abdominal bloating is overall much improved compared to Sunday. Did well with clear liquids po for breakfast. Several diarrhea after CT. WBC stable compared to yesterday at 17. Most recently febrile on Sunday afternoon. Lipase improved: 3k->1k->419 today. Cr improved: 1.47 on 09/27->1.03 today LFTs improved: T Bili 3.6->1.1 AST 733 ->44 ALT 794->182 Alk Phos 30 ->173 Review of Systems Review of Systems: ROS: Gen: Denies weakness,no fever x 2 days, weight loss Eyes: No eye redness, or pain, no recent vision changes Resp: No SOB, no cough Cardio: No palpitations/irregular beats, no chest pain GI: + abdomen bloating/distention pain. no nausea or vomiting + diarrhea : Denies pain on urination Skin: No jaundice, itching or new rashes Physical Exam Constitutional: WD/WN, vitals as above + obese Eyes: PERRL, conjunctivae normal, anicteric sclerae ENMT: external ear and nose normal, oropharynx normal Neck: trachea midline, no thyromegaly Respiratory: normal respiratory effort, lungs clear to auscultation Cardiovascular: RRR, no murmur, no edema Gastrointestinal (Abdomen): Inspection/Auscultation: + abdomen distended (very minimal) and normal bowel sounds Percussion/Palpation: + abdomen tender (diffuse, lower abdomen ) and abdomen soft; no ascites Musculoskeletal: no cyanosis or clubbing, extremities motor strength 5/5 Skin: no rashes, warm and dry Neurologic: PERRL, EOMI, accommodation nl, no face palsy, no dysarthria Psychiatric: A+Ox3, euthymic affect Lymphatic: no cervical or axillary lymphadenopathy Results & Data ([facility]) Vital Signs (Past 12 Hours) Vital Signs Temp Pulse Resp BP Pulse Ox 10/01/19 10:29 76 159/69 H 10/01/19 08:11 36.8 C 68 16 165/81 H 95 10/01/19 01:38 37 C 71 18 177/85 H 98
[2019-10-01] MEDS: metroNIDAZOLE 500 MG/100 ML BAG IV SCH ×2 (12:02→19:59)
[2019-10-01 12:11] LABS: Alpha 1 Antitrypsin >300 mg/dL (83-199); Anti Nuclear Antibody Screen NEGATIVE (NEGATIVE); Ceruloplasmin 39 mg/dL (18-36)
[2019-10-01] MEDS: CEFEPIME 2,000 MG in SYRINGE 7.5 ML IV SCH ×2 (13:26→21:06)
[2019-10-01] MEDS: METOCLOPRAMIDE HCL 5 MG TABLET PO SCH (15:42)
--- NOTE | 2019-10-01 15:48 | Hospitalist Progress Note ---
Date of Service October 01, 2019 Assessment & Plan (1) Postoperative bile leak: S/p lap hallie on 09/24. Presented with elevated bili, AST and ALT. ERCP on 09/27 noted for post-op bile leak, stent placed. Blood cultures drawn on 09/28 in the afternoon when he had a fever, no growth thus far. - GI recs no NSAIDs/aspirin x 5 days (10/02), repeat ERCP in 2 months for stent removal. - WBC remains elevated, but clinically improving. - Continue Zosyn -> Discharge abx per primary team. (2) Pancreatitis: Lipase was elevated at 3500 09/27, up to 3900 on 09/28. - Down to 420 today. - Advancing diet as tolerated. (3) ARF (acute renal failure): Cr up to 1.5 on admission. - Now Cr resolved & down to 1.0. (4) Hypertension: BP as high as 175/85 which is acceptable inpatient. No symptoms of hypertensive urgency. - Continue losartan - Outpatient PCP follow up (5) Prediabetes: A1c was 5.8% on 03/28/2019. No current meds. - Monitor for hyperglycemia - PCP follow up (6) DVT prophylaxis: SCDs - As per gen surg Given medical stability, Hospital Medicine team will sign off. Please re-consult with any questions or concerns. Thank you for letting us assist in the care of this patient! Admission and Anticipated Discharge Date Admission Date: September 28, 2019 Subjective Feeling well overall. No major concerns. Has an appetite, though our broth was very gross for him. Reports no fevers/chills, chest pain, shortness of breath, abdominal pain, nausea, or vomiting. Physical Exam Constitutional: WD/WN, vitals as above Eyes: EOM intact bilaterally; no conjunctival abnormality ENMT: external ear and nose normal, oropharynx normal Neck: trachea midline, no thyromegaly normal visual inspection Respiratory: normal respiratory effort, lungs clear to auscultation no res piratory distress Cardiovascular: RRR, no murmur, no edema Gastrointestinal (Abdomen): Inspection/Auscultation: abdomen normal to inspection; abdomen not distended Musculoskeletal: no cyanosis or clubbing, extremities motor strength 5/5 Skin: no rashes, warm and dry Neurologic: moves all extremities and awake Psychiatric: Orientation: alert, oriented to person and cooperative Results & Data Results & Data ([facility]) Vital Signs (Past 12 Hours) Vital Signs Temp Pulse Resp BP BP Pulse Ox 10/01/19 15:24 36.7 C 63 16 156/75 H 94 10/01/19 10:29 76 159/69 H 10/01/19 08:11 36.8 C 68 16 165/81 H 95 PG Care Time/CCT Total # of Minutes Spent Total Time Spent with Patient: Total time spent is greater than 50% in coordination of care (as documented) at patient's floor/unit and/or counseling patient: Coding Level of Care Code 24720 Subseq Hosp Care Lvl 2 Diagnoses Postoperative bile leak K91.89; K83.8 Pancreatitis K85.90 ARF (acute renal failure) N17.9 Hypertension I10 Prediabetes R73.03 DVT prophylaxis Z29.9
[2019-10-02] MEDS: D5W AND 1/2NSS + 20MEQ KCL 20 MEQ/1,000 ML BAG IV SCH ×2 (01:02→15:21)
[2019-10-02] MEDS: metroNIDAZOLE 500 MG/100 ML BAG IV SCH ×3 (03:55→20:23)
[2019-10-02] MEDS: METOCLOPRAMIDE HCL 5 MG TABLET PO SCH ×2 (06:11→16:48)
[2019-10-02 06:35] LABS: Hemoglobin 12.1 g/dL (14.0-18.0); Mean Corpuscular Hemoglobin 31.2 pg (25-34); Mean Corpuscular Hgb Conc 34.6 g/dL (32-36); Mean Corpuscular Volume 90.2 fL (80-100); Mean Platelet Volume 9.2 fL (7.4-10.4); Platelet Count 277 K/uL (130-400); RDW Coefficient of Variation 14.2 % (11.5-14.5); RDW Standard Deviation 47.3 fL (36.4-46.3); Red Blood Count 3.88 M/uL (4.7-6.1); White Blood Count 13.54 K/uL (4.8-10.8)
[2019-10-02 07:01] LABS: BUN Creatinine Ratio 11.3 (10-20); Calcium 9.2 mg/dl (8.5-10.1); Creatinine Clr Calc Pharmacy 81.7 ml/min; Est GFR (African American) 94.9; Est GFR (Non-African American) 81.9; Potassium 3.6 mmol/L (3.5-5.1)
--- NOTE | 2019-10-02 09:50 | Surgery Progress Note ---
Date of Service October 02, 2019 Assessment & Plan (1) Postoperative bile leak: Postoperative day #7 status post laparoscopic cholecystectomy, postoperative day #4 status post ERCP He is doing well White count has trended down and is 13,000 today Pancreatitis resolving Doing well from surgical standpoint Can be discharged from a surgical standpoint when medical and GI service think it is appropriate from their standpoint (2) Pancreatitis: Subjective Postoperative day #7 status post laparoscopic cholecystectomy, postoperative day #4 status post ERCP for bile leak Patient is feeling very well Has very little pain Tolerating regular diet Denies nausea and vomiting Ambulating Had no fever Physical Exam Gastrointestinal (Abdomen): Inspection/Auscultation: + abdomen distended (Mild but improved), normal bowel sounds and + abdominal surgical incision (Clean dry and intact) Percussion/Palpation: abdomen soft; abdomen nontender Results & Data Vital Signs (Past 12 Hours) Vital Signs Temp Pulse Resp BP BP Pulse Ox 10/02/19 07:59 37.0 C 73 18 136/68 95 10/01/19 23:08 36.8 C 76 16 174/78 H 96 Laboratory Results 10/02/19 10/02/19 09/29/19 Range/Units 06:20 06:20 12:26 WBC 13.54 H (4.8-10.8) K/uL RBC 3.88 L (4.7-6.1) M/uL Hgb 12.1 L (14.0-18.0) g/dL Hct 35.0 L (42-52) % MCV 90.2 (80-100) fL MCH 31.2 (25-34) pg MCHC 34.6 (32-36) g/dL RDW Std Deviation 47.3 H (36.4-46.3) fL RDW Coeff of Bijan 14.2 (11.5-14.5) % Plt Count 277 (130-400) K/uL MPV 9.2 (7.4-10.4) fL Sodium 134 L (136-145) mmol/L Potassium 3.6 (3.5-5.1) mmol/L Chloride 104 (98-107) mmol/L Carbon Dioxide 22 (21-32) mmol/L Anion Gap 8.0 (3-11) BUN 11 (7-18) mg/dl Creatinine 0.95 (0.6-1.4) mg/dl Est Cr Clr Drug Dosing 81.7 ml/min Est GFR ( Amer) 94.9 Est GFR (Non-Af Amer) 81.9 BUN/Creatinine Ratio 11.3 (10-20) Glucose 112 H (70-99) mg/dl Calcium 9.2 (8.5-10.1) mg/dl Kurjc-2-Vaqaqscsezz >300 H (83-199) mg/dL Ceruloplasmin 39 H (18-36) mg/dL XOCHILT Screen NEGATIVE (NEGATIVE)
[2019-10-02] MEDS: PANTOprazole 40 MG TAB PO SCH (09:59)
[2019-10-02] MEDS: CEFEPIME 2,000 MG in SYRINGE 7.5 ML IV SCH ×2 (09:59→20:23)
[2019-10-02] MEDS: POTASSIUM CITRATE 10 MEQ TAB PO SCH ×2 (10:00→20:24)
[2019-10-02] MEDS: ATORVASTATIN 40 MG TAB PO SCH (10:00)
[2019-10-02] MEDS: FENOFIBRATE NANOCRYSTALLIZED 48 MG TABLET PO SCH (10:00)
[2019-10-02] MEDS: LOSARTAN POTASSIUM 50 MG TAB PO SCH (10:00)
--- NOTE | 2019-10-02 10:30 | Gastroenterology Progress Note ---
Date of Service October 02, 2019 Assessment & Plan (1) Pancreatitis: Pancreatitis clinically resolved. (2) Postoperative bile leak: With leukocytosis, suggesting intraabdominal infection. Plan: 1. Change from Zosyn to Cefepime/Flagyl IV yesterday and has responded with decreasing white count. He is subjectively improving as well. 2. At this point fluid in abdomen is not a drainable abscess. 3. Prefer another day of IV antibiotics prior to DC. 4. Continue regular consistency low fat diet. Attg add: I interviewed and examined pt, reviewed chart and labs. Pt appears well, reports mild persistent bloating but eating well. Abd is mildly distended. Labs show decreasing WBC. Plan for d/c tomorrow with completion of 7 d couse of abx with cipro flagyl. Admission and Anticipated Discharge Date Admission Date: September 28, 2019 Subjective Feel well today. Passed a BM this morning. On a regular consistency, low fat diet and doing well with that. Denies abdominal pain. WBC 17->13 today on Cefepime/Flagyl. No fever since 09/28. Review of Systems Review of Systems: ROS: Gen: Denies weakness, fevers, weight loss Eyes: No eye redness, or pain, no recent vision changes Resp: No SOB, no cough Cardio: No palpitations/irregular beats, no chest pain GI: No abdominal pain, no nausea/vomiting : Denies pain on urination Skin: No jaundice, itching or new rashes Physical Exam Constitutional: WD/WN, vitals as above Eyes: PERRL, conjunctivae normal, anicteric sclerae ENMT: external ear and nose normal, oropharynx normal Neck: trachea midline, no thyromegaly Respiratory: normal respiratory effort, lungs clear to auscultation Cardiovascular: RRR, no murmur, no edema Gastrointestinal (Abdomen): normal bowel sounds, soft, nontender, no hepatosplenomegaly Inspection/Auscultation: abdomen not distended Incisions healing well Skin: no rashes, warm and dry Neurologic: PERRL, EOMI, accommodation nl, no face palsy, no dysarthria Psychiatric: A+Ox3, euthymic affect Lymphatic: no cervical or axillary lymphadenopathy Results & Data ([facility]) Vital Signs (Past 12 Hours) Vital Signs Temp Pulse Resp BP BP Pulse Ox 10/02/19 09:58 67 135/75 10/02/19 07:59 37.0 C 73 18 136/68 95 10/01/19 23:08 36.8 C 76 16 174/78 H 96
[2019-10-03] MEDS: D5W AND 1/2NSS + 20MEQ KCL 20 MEQ/1,000 ML BAG IV SCH (04:24)
[2019-10-03] MEDS: metroNIDAZOLE 500 MG/100 ML BAG IV SCH (04:24)
[2019-10-03] MEDS: METOCLOPRAMIDE HCL 5 MG TABLET PO SCH (06:32)
[2019-10-03 06:58] LABS: Basophils # (auto) 0.07 K/uL (0-0.2); Basophils % (auto) 0.6 %; Eosinophils # (auto) 0.47 K/uL (0-0.5); Eosinophils % (auto) 3.8 %; Hematocrit (blood only) 36.7 % (42-52); Hemoglobin 12.6 g/dL (14.0-18.0); Immature Granulocytes # (auto) 0.12 K/uL (0.00-0.02); Lymphocytes # (auto) 1.43 K/uL (1.2-3.4); Lymphocytes % (auto) 11.6 %; Mean Corpuscular Hemoglobin 31.3 pg (25-34); Mean Corpuscular Hgb Conc 34.3 g/dL (32-36); Mean Corpuscular Volume 91.3 fL (80-100); Mean Platelet Volume 9.1 fL (7.4-10.4); Monocytes # (auto) 1.19 K/uL (0.11-0.59); Monocytes % (auto) 9.6 %; Neutrophils # (auto) 9.07 K/uL (1.4-6.5); Neutrophils % (auto) 73.4 %; Platelet Count 345 K/uL (130-400); RDW Coefficient of Variation 14.5 % (11.5-14.5); RDW Standard Deviation 49.1 fL (36.4-46.3); Red Blood Count 4.02 M/uL (4.7-6.1); White Blood Count 12.35 K/uL (4.8-10.8)
[2019-10-03 07:15] LABS: Albumin Level 2.2 gm/dl (3.4-5.0); BUN Creatinine Ratio 12.9 (10-20); Calcium 8.9 mg/dl (8.5-10.1); Creatinine Clr Calc Pharmacy 73.3 ml/min; Est GFR (African American) 83.2; Est GFR (Non-African American) 71.8; Potassium 3.9 mmol/L (3.5-5.1)
[2019-10-03 07:18] LABS: Albumin Globulin Ratio 0.5 (0.9-2); Bilirubin,Total 0.7 mg/dl (0.2-1); Globulin 4.6 gm/dl (2.5-4.0); Total Protein 6.8 gm/dl (6.4-8.2)
--- NOTE | 2019-10-03 07:38 | Surgery Progress Note ---
Date of Service October 03, 2019 Assessment & Plan (1) Postoperative bile leak: POD#8 laparoscopic cholecystectomy and POD#5 ERCP with stent WBC continues to downtrend, 12.6 today from 13.5. Patient is afebrile LFT's downtrending Tbili: 0.7, AST: 41, ALT: 122, Alkp: 158 Tolerating a low fat diet and having + bowel function Anticipate discharge to home today Appreciate GI's recommendations for patient Our clinic will call pt for follow up and will need to be set up for ERCP with GI for stent removal Pt seen and examined with Dr. Block Subjective Patient continues to feel well. Tolerating low fat diet, no nausea/vomiting. Passing flatus and BM's. Looking forward to going home. Physical Exam Physical Exam: awake/alert Gastrointestinal (Abdomen): Inspection/Auscultation: + abdomen distended (improved) and + abdominal surgical incision (c/d/i with dermabond overtop) Results & Data Vital Signs (Past 12 Hours) Vital Signs Temp Pulse Resp BP Pulse Ox Pulse Ox 10/03/19 07:27 36.4 C L 77 16 141/70 H 96 10/03/19 00:05 93 10/02/19 22:58 36.9 C 65 18 155/83 H 93 PG Care Time/CCT Total # of Minutes Spent Total Time Spent with Patient: Total time spent is greater than 50% in coordination of care (as documented) at patient's floor/unit and/or counseling patient: Coding Level of Care Code None Diagnoses Postoperative bile leak K91.89; K83.8
[2019-10-03] MEDS: ATORVASTATIN 40 MG TAB PO SCH (09:01)
[2019-10-03] MEDS: FENOFIBRATE NANOCRYSTALLIZED 48 MG TABLET PO SCH (09:02)
[2019-10-03] MEDS: LOSARTAN POTASSIUM 50 MG TAB PO SCH (09:02)
[2019-10-03] MEDS: CEFEPIME 2,000 MG in SYRINGE 7.5 ML IV SCH (09:02)
[2019-10-03] MEDS: PANTOprazole 40 MG TAB PO SCH (09:02)
[2019-10-03] MEDS: POTASSIUM CITRATE 10 MEQ TAB PO SCH (09:02)
--- NOTE | 2019-10-03 10:45 | Gastroenterology Progress Note ---
Date of Service October 03, 2019 Assessment & Plan (1) Pancreatitis: Pancreatitis clinically resolved. (2) Postoperative bile leak: With leukocytosis, suggesting intraabdominal infection. Plan: 1. OK for discharge from a GI standpoint. 2. Will need OP WBC. Pt aware to get checked in 3-4 days. I have placed the order in the OP EPIC system. 3. Low fat, regular consistency diet. 4. Needs OP Cipro/Flagyl for approx 4-5 days (7-10 days of antibiotics total). Admission and Anticipated Discharge Date Admission Date: September 28, 2019 Subjective Patient continues to feel well. Tolerating low fat diet, no nausea/vomiting. Passing flatus and BM's. Looking forward to going home. Sitting up in a chair this morning. WBC 17->13->12 today. Afebrile since 09/28. Review of Systems Review of Systems: ROS: Gen: Denies weakness, fevers, weight loss Eyes: No eye redness, or pain, no recent vision changes Resp: No SOB, no cough Cardio: No palpitations/irregular beats, no chest pain GI: No abdominal pain, no nausea/vomiting : Denies pain on urination Skin: No jaundice, itching or new rashes Gastrointestinal: as per Subjective / HPI Physical Exam Constitutional: WD/WN, vitals as above + obese Eyes: PERRL, conjunctivae normal, anicteric sclerae ENMT: external ear and nose normal, oropharynx normal Neck: trachea midline, no thyromegaly Respiratory: normal respiratory effort, lungs clear to auscultation Cardiovascular: RRR, no murmur, no edema Gastrointestinal (Abdomen): normal bowel sounds, soft, nontender, no hepatosplenomegaly Musculoskeletal: no cyanosis or clubbing, extremities motor strength 5/5 Skin: no rashes, warm and dry Neurologic: PERRL, EOMI, accommodation nl, no face palsy, no dysarthria Psychiatric: A+Ox3, euthymic affect Lymphatic: no cervical or axillary lymphadenopathy Results & Data ([facility]) Vital Signs (Past 12 Hours) Vital Signs Temp Pulse Pulse Resp BP BP Pulse Ox 10/03/19 10:15 36.4 C L 71 77 16 141/70 H 136/68 96 10/03/19 07:27 36.4 C L 77 16 141/70 H 96 10/03/19 00:05 10/02/19 22:58 36.9 C 65 18 155/83 H 93 Pulse Ox 10/03/19 10:15 10/03/19 07:27 10/03/19 00:05 93 10/02/19 22:58
--- NOTE | 2019-10-07 17:40 | Discharge Summary ---
Date of Service October 07, 2019 Principal Diagnosis Post operative bile leak Discharge Exam awake/alert Gastrointestinal (Abdomen) Inspection/Auscultation: + abdomen distended (improved) and + abdominal surgical incision (c/d/i with dermabond overtop) Discharge Data Allergies Allergy/AdvReac Type Severity Reaction Status Date / Time No Known Allergies Allergy Unknown Verified 09/28/19 08:30 Consultations 09/28/19 09:29 Consult General Surgery Stat 09/28/19 10:34 ED Decision to Admit Stat 09/28/19 11:40 Consult Gastroenterology Stat 09/28/19 11:54 Consult Hospitalist Routine Procedures Performed Operation Date: 09/28/19 13:00 Actual Procedures p Endoscopic Retrograde Cholangiopancreatography(Not Applicable) - Samira Gaona MD Ordered Studies 09/28/19 08:06 CT abd pelvis IV con only Stat 09/28/19 12:24 US abdomen limited Routine 09/28/19 14:30 FL ERCP biliary ductal Routine 09/30/19 09:37 CT abd pelvis oral and IV con Urgent Hospital Course (1) Postoperative bile leak: This is a 69y M who is recently s/p laparoscopic cholecystectomy on 09/25/19 for acute cholecystitis. Patient did well during hospitalization and was discharged to home on POD#1. On 09/27 the patient returned to the ED with complaints of abdominal pain, nausea and vomiting. His LFT's were noted to be elevated. GI was consulted and recommended and ERCP due to symptoms and lab findings. ERCP performed on 09/27 revealed findings of a bile leak and biliary stent placed. Patient was continued on IV abx. Pt's lipase was noted to be somewhat elevated pre- ERCP & bumped slightly day after ERCP, but then subsequently trended downward. His diet was slowly advanced as tolerated with consideration to his element of pancreatitis. On 09/29 patient's WBC bumped to 17 from [address] scan showing pancreatitis with trace fluid in the gallbladder fossa (no drainable collections). His abx regimen was adjusted to cefepime/flagyl and his WBC started to downtrend thereafter. By 10/01 patient was tolerating a regular diet, pain was controlled, LFT's and WBC downtrending and he was deemed stable for discharge to home to complete a course of po abx (cipro/flagyl). He was asked to follow up with surgery clinic within 1 week and was to be scheduled with GI for an ERCP with stent removal within 6 weeks. Total Time Total Time Spent Total Time Spent (In Minutes): 10 Discharge Plan Discharge Items Patient Disposition: Home - Self-Care Reason For Visit: VOMITING, LOWER ABDOMINAL PAIN Discharge Diagnosis: bile leak Activity: Per Instructions section Lifting: No more than 10 pounds Bathing Comment: may shower, no soaking in tubs Exercise/Sports: Wait until after follow-up appointment Driving/Machine Use: do not resume driving while taking narcotics for pain Non-emergency contact: Surgeon Call non-emergency contact if: you have any medication questions, your symptoms worsen, your pain is not controlled, your pain is worsening, you have a fever, your temperature is above 101.5, your wound has increased redness, your wound has increased drainage and your wound pain has increased Follow-up/Referrals: Mary Gordon DO [Primary Care Provider] - (Office will call patient with follow up appointment.) Will Martinez DO, B[facility] [Physician] - (The office will call you for a follow up within 1-2 weeks) Samira Gaona MD [Hospitalist] - (Call office for an appointment.) Diet: Low Fat Addtl Attending Provider Instructions: Please avoid aspirin and NSAIDs (such as ibuprofen, advil, etc) for 5 days after your ERCP procedure. You will be scheduled for a repeat ERCP with gastroenterology within 6 weeks to remove your stent. Please complete your full course of antibiotics prescribed to you. Pending Studies at Discharge: No Stand-Alone Forms: My [facility], Opioid Pain Management, Smoking Cessation Medications and DC Order Prescriptions: New metronidazole [Flagyl] 500 mg tablet 500 mg PO Q8H 7 Days Qty: 21 RF: 0 ciprofloxacin HCl [Cipro] 500 mg tablet 500 mg PO Q12H Qty: 14 RF: 0 Continued albuterol sulfate [Ventolin HFA] 90 mcg/actuation HFA aerosol inhaler 1 puffs INH Q6H PRN (Reason: Wheezing) RF: 0 atorvastatin [Lipitor] 40 mg tablet 40 mg PO QAM Qty: 90 RF: 1 potassium citrate [Urocit-K 10] 10 mEq (1,080 mg) tablet extended release 10 meq PO BID RF: 0 pantoprazole [Protonix] 40 mg tablet,delayed release (DR/EC) 40 mg PO QAM RF: 0 lidocaine [Lidoderm] 5 % adhesive patch,medicated 1 patch TOP DAILY PRN (Reason: pain) RF: 0 losartan [Cozaar] 100 mg tablet 100 mg PO QAM RF: 0 fenofibrate nanocrystallized [Tricor] 48 mg tablet 48 mg PO QAM RF: 0 oxycodone-acetaminophen [Percocet] 5-325 mg tablet 1 - 2 tab PO Q4H PRN (Reason: pain, initial therapy, max 6 daily) Qty: 15 RF: 0 Discontinued ibuprofen 200 mg Tablet 400 mg PO Q6H PRN (Reason: Pain) RF: 0 Discharge Orders: Discharge Order (Routine); Ordered 10/03/19 Ordered By: Steph Patino/Other Patient Handouts: DVT, Pancreatitis, Anatomy Digestive System Admission Data Admit Date/Time: 09/28/19 10:22 Attending Provider: Belen Pryor Admit Provider: Belen Pryor Primary Care Provider: Mary Gordon Other Providers: Belen Pryor ; Jan Alvarez ; Ingrid Wilkes ; Al Stringer ; Silvia Acosta ; Jerry Woods ; Jennifer Diggs ; Lavon Shelby ; Yasmeen Ravi ; Pop Moore ; Randy Young ; Lori Coppola ; Myranda Meng ; Cathy Alvarez ; Arabella Parr ; Samira Gaona ; Jeffrey Fuller ; Ryan Irene Other Interventions: Discharge Summary Assessment (RN) Last Done: 10/03/19 10:15 DC Date/Time DO NOT enter until pt leaves facility: 10/03/19 11:07 Coding Level of Care Code D/C Day Management <30 mins Diagnoses Postoperative bile leak K91.89; K83.8
== END 2019-10-03 11:07 | disposition home or self-care (01) | DRG 393 ==
LOC: ED 07:38 → 3E 10:22